=== PATIENT | male | born 1940 | race Caucasian/White ===

== ENCOUNTER 2017-04-30 15:18 | Emergency (ER) | payer BC ==
[~2017-04-30] VITALS: Ht 185.4 cm; Wt 88.0 kg
[~2017-04-30 15:18] MED LIST: FLM4 PO; OXYC1TAB3 PO; PROM25TA PO
[2017-04-30 15:24] VITALS: TEMP 36.4; Ht 185.4 cm; Wt 88.0 kg
[2017-04-30] MEDS ORDERED: BUPIVACAINE 0.5 % 5 MG/1 ML MPF 30ML VIAL INFIL ONE (15:45)
[2017-04-30] MEDS ORDERED: XYLOCAINE 1%/SOD BICARB 20 ML VIAL INFIL ONE (15:45)
[2017-04-30] MEDS ORDERED: FENTANYL CITRATE INJ 50 MCG/1 ML 2 ML VIAL IV STA (16:03)
--- NOTE | 2017-04-30 16:08 | DIAGNOSTIC IMAGING REPORT ---
RIGHT HAND 3 VIEWS HISTORY: crush injury/laceration right hand, digits 1 and 2 Right COMPARISON: None. FINDINGS: Comminuted fractures at the mid shaft of the proximal phalanx of the thumb and index finger. The proximal phalanx fracture at the thumb extends to the interphalangeal joint and demonstrates mild radial displacement. There is dorsal angulation at the proximal phalanx fracture of the index finger. Soft tissue swelling within the thumb and index finger. No radiopaque foreign bodies. IMPRESSION: Comminuted fractures involving the proximal phalanges of the thumb and index finger. Electronically signed by: Juma Grayson M.D. 04/30/2017 4:07 PM Dictated Date/Time: 04/30/2017 4:05 PM
--- NOTE | 2017-04-30 17:06 | EMERGENCY ROOM VISIT NOTE ---
ED Visit Note First contact with patient: 15:30 This Patient was discussed with the physician assistant commissioner, Kirsty Harrell PA-C. The pertinent historical and physical exam findings were confirmed. I agree with the studies ordered and with the interpretations of these studies. I agree with the disposition and care plan.
[2017-04-30] MEDS ORDERED: CEPHALEXIN MONOHYDRATE 250 MG CAP PO STA (17:57)
[2017-04-30] MEDS ORDERED: DIPHTHERIA/TETANUS/PERTUSSIS 0.5 ML SYR/VIAL IM. ONE (18:00)
[2017-04-30 18:08] VITALS: BP 145/81; PULSE 87; O2SAT 95
[2017-04-30] MEDS ORDERED: OXYC1TAB3 PO ×2 (18:13→18:37)
[2017-04-30] MEDS ORDERED: CEPH500C PO ×2 (18:13→18:37)
--- NOTE | 2017-04-30 18:15 | EMERGENCY ROOM VISIT NOTE ---
ED Visit Note First contact with patient: 15:30 CHIEF COMPLAINT: Finger laceration/pain HISTORY OF PRESENT ILLNESS: This 76-year-old male patient presents to the emergency department approximately one hour after cutting the right index finger and thumb when his ainxzpv-pj-ysj accidentally threw a log on top of his hand. The patient was wearing gloves, and states the gloves were not damaged. The patient reports significant difficulty moving his thumb and right index finger, in addition to the bleeding lacerations. The bleeding has not stopped. Denies weakness or numbness of the finger. The patient has full range of motion of the fingers, but range of motion is significantly decreased due to pain. The patient rates the pain as and throbbing and 5/10. The patient denies any other injuries. The patient is unsure if his tetanus shot is up to date. Upon arrival , the patient is dizzy, lightheaded, and states he does not feel well. REVIEW OF SYSTEMS: A 6 system review of systems was completed with positives and pertinent negatives listed in the HPI. ALLERGIES: None MEDICATIONS: Lisinopril, metformin PMH: Diabetes, hypertension SOCIAL HISTORY: The patient lives locally with family. He denies drug, alcohol , tobacco use. PHYSICAL EXAM: Vital Signs: Reviewed Nurse's notes, vital signs stable. GENERAL : This is a 76-year-old male, in no acute distress, well developed, well nourished. He does appear lethargic, and is pale in the face. SKIN: There is a 2 cm long laceration on the medial, dorsal aspect of the second finger, overlying the proximal phalanx. The edges gape apart with and without traction. There is no foreign material in the wound and it looks clean. There is mild active bleeding. A tendon is visible at the base of the wound, however no obvious bones or blood vessels noted. Extension and flexion of the finger is full and strong. There is a 2 cm long laceration on the anterior aspect of the first digit, overlying the proximal phalanx. The edges gape apart with and without traction. There is no foreign material in the wound and it looks clean. There is mild active bleeding. On deep inspection, there is bone noticeable and palpable. No significant tendons or blood vessels noted. Extension and flexion of the finger is full and strong.Full range of motion of the wrist and other fingers. Capillary refill less than 2 seconds. Normal sensation to light and sharp touch. RADIOLOGY: X-Ray Right Hand: FINDINGS: Comminuted fractures at the mid shaft of the proximal phalanx of the thumb and index finger. The proximal phalanx fracture at the thumb extends to the interphalangeal joint and demonstrates mild radial displacement. There is dorsal angulation at the proximal phalanx fracture of the index finger. Soft tissue swelling within the thumb and index finger. No radiopaque foreign bodies. IMPRESSION: Comminuted fractures involving the proximal phalanges of the thumb and index finger. EMERGENCY DEPARTMENT COURSE: I examined the patient. X-ray of the right hand was performed and did show comminuted fractures of the proximal phalanges of the thumb and index finger. The patient was given 50 g of fentanyl via IV. I did consult with Dr. Francois regarding the fracture and open wound overlying the fracture. He advised me to irrigate the wound with lots of sterile saline and apply a splint. He recommends loosely closing the wound with sutures, and starting the patient on Keflex. He states he will see the patient tomorrow morning at 10:30 AM in the office, and states he will discuss further management at that time. Verbal consent was obtained to perform the procedure. Using sterile technique the wound was cleansed with Betadine. 10 ml of 1% buffered lidocaine with 0.5% Bupivacaine was used to perform a digital block to anesthetize the patient's first and second digits. The area was sterilely draped. Once the patient was anesthetized, the wounds were copiously irrigated under pressure with sterile saline. The wounds were explored and structures visible as described previously. The laceration on the thumb was repaired using 6 simple interrupted 5-0 nylon sutures. The laceration on the 2nd digit was repaired using 6 simple interrupted 5-0 nylon sutures. The procedures were performed by myself and our PA student. The patient tolerated the procedure well. Hemostasis was achieved. 6 mL of 1% buffered lidocaine with 0.5% bupivacaine was used to perform a repeat digital block to anesthetize patient's first and second digits. The areas were cleaned with sterile saline and dressed with Adaptic and bandage. The patient was given a tetanus booster. The fingers were placed in finger splints. The patient was given his first dose of 500 mg Keflex. The patient did experience a rash throughout the course of his emergency department stay. I suspect this could be related to the fentanyl, and did warn the patient regarding receiving this medication in the future. Rash did improve prior to his departure. The patient denies any difficulty breathing. The patient was discharged home in good condition. I did consult with PDMP and did not find any suspicious findings. DIFFERENTIAL DIAGNOSIS: Phalanx fracture, laceration, contusion, soft tissue injury, sprain or strain or tear of the tendons, and others DIAGNOSIS: Open proximal phalanx fracture of the first and second digits. DISCHARGE INSTRUCTIONS & TREATMENT: ORTHOPEDIC INSTRUCTIONS: DO NOT drive, drink alcohol, operate machinery, or perform dangerous activities today. You were given medications in the ER that can affect your ability to safely function or operate a vehicle. Oxycodone (OxyIR) 5mg: Take 1-2 pills every four hours as needed for breakthrough pain. Avoid alcohol, operating machinery or dangerous equipment, working on ladders or roofs, DRIVING, or situations where being under the influence may be dangerous. It is recommended to use an kvog-jtt-ovanhlo stool softener such as Colace, 100mg twice daily while taking this medication to avoid constipation. Ibuprofen(Motrin, Advil) may be used for fever or pain. Use 600mg every six hours as needed. Take with food. Avoid using more than 2400mg in a 24 hour period. Do not use 2400mg per day for more than three consecutive days without physician direction. Prolonged inappropriate use can lead to stomach upset or ulcers. (AND/OR) Acetaminophen(Tylenol) may be used for fever or pain. Use 1000mg every six hours as needed. Avoid using more than 4000mg in a 24 hour period. Ice compresses for 20 minutes at a time four times daily for 2-3 days. Rest and elevate your injury. Do not get the splint wet. If your splint feels excessively tight, you have worsening pain, develop numbness or tingling, or your digits appear blue, loosen the becka wrap. Then reapply the becka wrap gently without removing the splint. If your symptoms are not quickly relieved return to the ER for re- evaluation. Return to the ER immediately for any numbness, tingling, severe pain, extreme swelling in the extremity or as needed. I spoke with Dr. Francois while you were in the emergency department. He states he were to follow up outpatient in the office at [facility] tomorrow at 10:30 AM. He will discuss further treatment and management at that time. We will also advised to on timeframe for removal of sutures. Follow-up with your primary care physician in 2 to 3 days for a recheck of your current condition. Current/Historical Medications Scheduled Cephalexin Monohydrate (Keflex), 500 MG PO QID Lisinopril & Hydrochlorothiazi (Zestoretic 20-12.5 mg), 1 TAB PO DAILY Metformin Hcl Er (Glucophage Er), 1,000 MG PO BID Multiple Vitamins W/ Minerals (Centrum Silver 50+Men), 1 TAB PO DAILY Scheduled PRN Oxycodone Ir (Roxicodone Ir), 1-2 TAB PO Q4H PRN for Pain Allergies Coded Allergies: No Known Allergies (Unverified Allergy, Unknown, UNKNOWN, 06/22/09) Vital Signs Date Time Temp Pulse Resp B/P (MAP) Pulse Ox O2 Delivery O2 Flow Rate FiO2 04/30/17 18:08 87 20 145/81 95 Room Air 04/30/17 16:55 84 04/30/17 16:36 98 18 141/76 98 Room Air 04/30/17 15:24 36.4 75 18 116/71 94 Room Air Medications Administered Medications (Trade) Dose Ordered Sig/Syeda Route Start Time Stop Time Status Last Admin Dose Admin Fentanyl Citrate (Fentanyl Inj) 50 mcg NOW STAT IV 04/30/17 16:03 04/30/17 16:05 DC 04/30/17 16:36 50 MCG Diphtheria/ Pertussis/Tetanus Vacc (Adacel Inj) 0.5 ml ONCE ONCE IM. 04/30/17 18:00 04/30/17 18:01 DC 04/30/17 18:09 0.5 ML Cephalexin Monohydrate (Keflex Cap) 500 mg NOW STAT PO 04/30/17 17:57 04/30/17 17:58 DC 04/30/17 18:09 500 MG Departure Information Impression Primary Impression: Open fracture proximal phalanx finger Dispostion Home / Self-Care Condition GOOD Prescriptions Oxycodone Ir (Roxicodone Ir) 5 Mg Tab 1-2 TAB PO Q4H Y for Pain, #24 TAB For Initial Treatment Prov: Kirsty Harrell, PAEhsanC 04/30/17 Cephalexin Monohydrate (Keflex) 500 Mg Cap 500 MG PO QID for 10 Days, #40 CAP Prov: Kirsty Harrell PA-C 04/30/17 Referrals Forrest Slater D.O. (PCP) Shailesh Francois MD Patient Instructions ED Fx Finger Open, [facility] Additional Instructions ORTHOPEDIC INSTRUCTIONS: DO NOT drive, drink alcohol, operate machinery, or perform dangerous activities today. You were given medications in the ER that can affect your ability to safely function or operate a vehicle. Oxycodone (OxyIR) 5mg: Take 1-2 pills every four hours as needed for breakthrough pain. Avoid alcohol, operating machinery or dangerous equipment, working on ladders or roofs, DRIVING, or situations where being under the influence may be dangerous. It is recommended to use an excv-bvm-fjnmqbx stool softener such as Colace, 100mg twice daily while taking this medication to avoid constipation. Ibuprofen(Motrin, Advil) may be used for fever or pain. Use 600mg every six hours as needed. Take with food. Avoid using more than 2400mg in a 24 hour period. Do not use 2400mg per day for more than three consecutive days without physician direction. Prolonged inappropriate use can lead to stomach upset or ulcers. (AND/OR) Acetaminophen(Tylenol) may be used for fever or pain. Use 1000mg every six hours as needed. Avoid using more than 4000mg in a 24 hour period. Ice compresses for 20 minutes at a time four times daily for 2-3 days. Rest and elevate your injury. Do not get the splint wet. If your splint feels excessively tight, you have worsening pain, develop numbness or tingling, or your digits appear blue, loosen the becka wrap. Then reapply the becka wrap gently without removing the splint. If your symptoms are not quickly relieved return to the ER for re- evaluation. Return to the ER immediately for any numbness, tingling, severe pain, extreme swelling in the extremity or as needed. I spoke with Dr. Francois while you were in the emergency department. He states he were to follow up outpatient in the office at [facility] tomorrow at 10:30 AM. He will discuss further treatment and management at that time. We will also advised to on timeframe for removal of sutures. Follow-up with your primary care physician in 2 to 3 days for a recheck of your current condition. Problem Qualifiers Primary Impression: Open fracture proximal phalanx finger Encounter type: initial encounter Finger: unspecified finger Fracture alignment: displaced Qualified Codes: S62.619B - Displaced fracture of proximal phalanx of unspecified finger, initial encounter for open fracture
[2017-04-30] MEDS ORDERED: MULT-1093 PO (18:21)
[2017-04-30] MEDS ORDERED: METF500T5 PO (18:21)
[2017-04-30] MEDS ORDERED: LISI-787 PO (18:21)
--- NOTE | 2017-04-30 18:40 | Pharmacy Progress Note ---
ED Pharmacist Counseling Note Date of Service: Apr 30, 2017. Received call from [facility] - out of stock of oxycodone 5 mg tabs. Gave verbal order to cancel both oxycodone and cephalexin prescriptions. Spoke with Kirsty MILLER) who canceled the original prescriptions and re- transmitted to a different pharmacy ([facility]). She informed the patient who is aware of the switch.
== END 2017-04-30 18:25 | disposition home or self-care (01) ==
LOC: C.EDB 15:20 → C.EDD 18:25
DX: S62.610B Displaced fracture of proximal phalanx of right index finger, initial encounter for open fracture (principal); S62.511B Displaced fracture of proximal phalanx of right thumb, initial encounter for open fracture; S61.210A Laceration without foreign body of right index finger without damage to nail, initial encounter; S61.011A Laceration without foreign body of right thumb without damage to nail, initial encounter; W22.8XXA Striking against or struck by other objects, initial encounter; Z23 Encounter for immunization; I10 Essential (primary) hypertension; E11.9 Type 2 diabetes mellitus without complications; Z79.84 Long term (current) use of oral hypoglycemic drugs; Z79.899 Other long term (current) drug therapy

== ENCOUNTER → 2017-05-01 | Outpatient (CLI) | payer BC ==
[~2017-05-01] MED LIST changes: +CEPH500C PO; -FLM4 PO; +LISI-787 PO; +METF500T5 PO; +MULT-1093 PO; -PROM25TA PO
== END | disposition home or self-care (01) ==
LOC: C.CPL 13:22
PROVIDERS: ATTEND Orthopaedic Surgery
DX: S69.91XA Unspecified injury of right wrist, hand and finger(s), initial encounter (principal); X58.XXXA Exposure to other specified factors, initial encounter

== ENCOUNTER → 2017-12-27 | Outpatient (CLI) | payer BC ==
[~2017-12-27] MED LIST changes: -CEPH500C PO; -OXYC1TAB3 PO
--- NOTE | 2017-12-27 08:19 | DIAGNOSTIC IMAGING REPORT ---
(CHEST) THORAX WITHOUT CT DOSE: 273.12 mGycm HISTORY: Melanoma MELONOMA TECHNIQUE: Multiaxial CT images of the chest were performed without contrast. A dose lowering technique was utilized adhering to the principles of ALARA. COMPARISON: None. FINDINGS: The lungs are clear. The mediastinal vascular structures are within normal limits. No mediastinal or hilar lymphadenopathy. No pleural effusion or pneumothorax. Limited views of the upper abdomen demonstrate a normal liver and spleen. IMPRESSION: No acute process. The above report was generated using voice recognition software. It may contain grammatical, syntax or spelling errors. Electronically signed by: Lukasz Barahona M.D. 12/27/2017 8:18 AM Dictated Date/Time: 12/27/2017 8:14 AM
== END | disposition home or self-care (01) ==
LOC: C.CTS 07:56
PROVIDERS: ATTEND Internal Medicine Hematology & Oncology
DX: C43.4 Malignant melanoma of scalp and neck (principal)

== ENCOUNTER 2019-09-17 05:54 | Inpatient (IN) ==
--- NOTE | 2019-09-04 12:09 | Anesthesiology Consultation ---
Date of Service September 04, 2019 Assessment & Plan (1) Encounter for pre-operative examination: Chart Review Chart Review: Acceptable Risk for Surgery and Patient NOT seen in Pre Admission Testing Consults Requested none History Surgery Operation Date: 09/17/19 07:30 Proposed Procedures p Navigational Bronchoscopy with ICG Markings, - Faisal Leon MD, FACS s Robotic Left Video Assisted Thoracoscopy with Left Upper Lobe Wedge Resection - Faisal Leon MD, FACS Height/Weight Height: 6 ft Weight: 79.379 kg Allergies Allergy/AdvReac Type Severity Reaction Status Date / Time No Known Allergies Allergy Verified 09/02/19 09:13 Medications Home Medications Medication Instructions Recorded Confirmed Last Taken lisinopril 20 1 tab PO QAM 08/19/19 09/02/19 08/21/19 07:00 mg-hydrochlorothiazide 12.5 mg tablet fgtyifkr-ipl-luhvp acid 300 1 tab PO QAM 08/19/19 09/02/19 08/21/19 07:00 mcg-lycopene 600 mcg-lutein 300 mcg tablet cranberry 500 mg PO QAM 08/21/19 09/02/19 08/21/19 07:00 elderberry fruit and flower 2 cap PO QAM 08/21/19 09/02/19 08/21/19 07:00 flaxseed oil [[place]born-3 Flaxseed Oil] 1,000 mg PO QAM 08/21/19 09/02/19 08/21/19 07:00 ibuprofen 400 mg PO Q6H PRN 08/21/19 09/02/19 08/21/19 07:00 atorvastatin 20 mg PO QAM 08/22/19 09/02/19 08/21/19 21:30 calcium polycarbophil [Fiber 1,250 mg PO QAM 09/02/19 09/02/19 Unknown (calcium polycarbophil)] lactobacillus combination no.4 3,000 mmu cells PO QAM 09/02/19 09/02/19 Unknown [Probiotic] turmeric 400 mg PO QAM 09/02/19 09/02/19 Unknown Past Medical History Medical History Diabetes mellitus, type 2 diet controlled History of ASCVD (arteriosclerotic cardiovascular disease) History of kidney stones History of melanoma Hyperlipidemia Hypertension Lung nodules Past Surgical History Surgical History History of cystoscopy w/ stone extraction History of hand surgery Rt - thumb, index finger - hardware present History of lithotripsy History of melanoma excision scalp 2017 History of right inguinal hernia repair History of tooth extraction Status post dissection of cervical lymph nodes Social History Smoking Status: Never smoker Do You Dip or Chew Tobacco: No Hx Alcohol Use: No Hx Substance Use: No substance use type: does not use Testing Laboratory Results Laboratory Tests 07/22/19 07/22/19 08:18 08:18 WBC 4.27 L Hgb 14.9 Plt Count 212 Sodium 141 Potassium 4.0 Chloride 107 Carbon Dioxide 30 BUN 16 Creatinine 0.98 Glucose 117 H Electrocardiogram Date: 08/19/19 Sinus rhythm with 1st degree A-V block, rate 61 bpm Non-specific intra-ventricular conduction block Minimal voltage criteria for LVH, may be normal variant ( [place] product ) Cannot rule out Septal infarct , age undetermined Abnormal ECG When compared with ECG of 01-MAY-2017 13:28, T wave inversion no longer evident in Inferior leads Confirmed by Kayden Narayanan ([id number]) on 08/19/2019 3:46:13 PM Chest X-Ray Date: 08/22/19 IMPRESSION: 1. 28 mm right perihilar soft tissue mass 2. No evidence of pneumothorax
[2019-09-17] MEDS ORDERED: LR 15ML/HR IV SCH (06:00)
--- NOTE | 2019-09-17 06:30 | History & Physical Bridge Note ---
Date of Service September 17, 2019 History & Physical Bridge Note I have examined the patient, reviewed the History & Physical and in the interval since the performance of the History & Physical I have noted the following changes of clinical significance: no changes noted
[2019-09-17] MEDS ORDERED: LARYING-O-JET KIT (LTA) ONE (06:48)
[2019-09-17] MEDS ORDERED: LIDOCAINE HCL 2% 2 ML VIAL/AMP(20MG/ML) INFIL ONE (06:48)
[2019-09-17] MEDS ORDERED: ONDANSETRON INJ 2 MG/ML 2 ML VIAL ONE (06:48)
[2019-09-17] MEDS ORDERED: ROCURONIUM BROMIDE 10 MG/ML 5 ML VIAL ONE (06:48)
[2019-09-17] MEDS ORDERED: fentaNYL citrate 100 MCG/2 ML VIAL ONE ×2 (06:49)
[2019-09-17] MEDS ORDERED: ATROPINE SULFATE 0.1 MG/ML 10ML SYR IV PRN (07:00)
[2019-09-17] MEDS ORDERED: ONDANSETRON INJ 2 MG/ML 2 ML VIAL IV PRN ×2 (07:00→12:19)
[2019-09-17] MEDS ORDERED: fentaNYL citrate 100 MCG/2 ML VIAL IV PRN (07:00)
[2019-09-17] MEDS ORDERED: ePHEDrine sulfate 50 MG/ML AMP IV PRN (07:00)
[2019-09-17] MEDS ORDERED: BUPIVACAINE 0.5 % 5 MG/1 ML MPF 30ML VIAL ONE (07:02)
[2019-09-17] MEDS ORDERED: SODIUM CHLORIDE 0.9% PF 50 ML VIAL ONE (07:03)
[2019-09-17] MEDS ORDERED: BUPIVACAINE LIPOSOME 1.3% 266 MG/20 ML VIAL ONE (07:03)
--- NOTE | 2019-09-17 08:23 | Fluoroscopy Report ---
FL chest 1V frontal CLINICAL HISTORY: NAVIGATIONAL BRONCH COMPARISON STUDY: Chest CT August 05, 2019. Chest radiograph August 22, 2019. FLUOROSCOPY TIME: 52 seconds. FLUOROSCOPIC IMAGES: 1 FINDINGS: Fluoroscopy was provided for navigational bronchoscopy for sampling of the left upper lobe lesion shown on prior CT. IMPRESSION: Fluoroscopy provided for navigational bronchoscopy. ACT 112: Negative or not required by law. Electronically signed by: Jackson Hurtado M.D. 09/17/2019 8:21 AM
[2019-09-17] MEDS ORDERED: NEOSTIGMINE METHYLSULFATE 5 MG/5 ML SYR ONE (09:53)
[2019-09-17] MEDS ORDERED: GLYCOPYRROLATE 0.2 MG/ML VIAL ONE ×2 (09:53→09:55)
[2019-09-17] MEDS ORDERED: PHENYLEPHRINE HCL 10 MG/ML VIAL ONE (09:54)
[2019-09-17] MEDS ORDERED: ePHEDrine sulfate 50 MG/ML SYR ONE (09:54)
[2019-09-17] MEDS ORDERED: PHENYLEPHRINE 100MCG/ML 5ML SYR ONE (09:54)
[2019-09-17] MEDS ORDERED: VASOPRESSIN 20 UNIT/ML VIAL ONE (09:54)
--- NOTE | 2019-09-17 10:04 | Operative Report ---
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 I identified the patient and participated in the time-out.: Yes Procedure Operation Date: 09/17/19 07:30 Actual Procedures p Navigational Bronchoscopy with ICG Markings, - Faisal Leon MD, FACS s Robotic Left Video Assisted Thoracoscopy with Left parietal pleural biopsy, upper Lobe Wedge Resection and mediastinal lymph node biopsies- Faisal Leon MD, FACS Surgeon Faisal Leon MD, FACS Belt Repairer Juan GOMEZ Estimated Blood Loss 10 Findings Consistent with Post-Op Diagnosis Specimens Pleural biopsy, left level 9 lymph node and level 5 lymph node, wedge resection left upper lobe x2 Drains 24 Uzbek chest tube Anesthesia Type General Complications none Disposition Accompanied Patient To Recovery: Yes Disposition: Recovery Room Indications Patient with a history of melanoma with pulmonary nodules Description of Procedure 78-year-old male has a history of melanoma and was found to have pulmonary nodules which are asymptomatic 1 which was larger in the more central right lower lobe abutting the more peripheral left upper lobe. I performed a navigational bronchoscopy and biopsy both of these but we did not get a diagnosis. For this reason I felt that a wedge resection of the left upper lobe medial mass would be amenable to biopsy however in order to remove the right l ower lobe mass we have to do a lobectomy. Patient is in excellent shape for 78-year-old male. We discussed this at our multidisciplinary cancer conference and determined that if the patient did indeed have metastatic melanoma in his left upper lobe we would treat him with targeted therapy and perhaps SBRT to the right lower lobe. We will discuss this further when the final pathology is back. On 09/17/2019 the patient underwent an uncomplicated navigational bronchoscopy with marking of the left medial upper lobe mass with ICG dye injection. Patient was then turned and underwent a robotic wedge resection of this mass. The ICG dye did not porsche the mass as well as we would have liked however we were able to wedge this out and the frozen section showed it to be a metastatic melanoma although we will have to wait for final stains before being 100% sure of that. There was also a hyperpigmented mass which was odd in appearance on the parietal pleura which I biopsied. This appeared to be metastatic melanoma also. I biopsied a large level 5 lymph node frozen section showed no evidence of cancer. I biopsied a smaller left level 9 lymph node. The patient had no air leak and was extubated in the room with negligible blood loss. Procedure: Patient brought to operating room laid supine Zych. General anesthesia was induced endotracheal intubation was performed with a single-lumen tube. Patient's airways were then registered on the [place] navigational bronchoscopy system. We were able to navigate out to the mass in the medial left upper lobe and using ICG dye injected this with a needle into the area. We then remove the bronchoscope without difficulty and he had no evidence of bleeding and I saw no endobronchial abnormalities. Patient was then turned to the right lateral decub position after a double-lumen tube in place. 4 robotic ports were placed. 2 8 mm ports were placed posteriorly and anteriorly and a 12 mm port was placed in the midaxillary line at about the seventh interspace. Then placed a 12 mm assistance port further down anteriorly above the diaphragm. One lung ventilation ensued and carbon oxide was insufflated. We then used the firefly camera and we saw the diet but it did not appear to be the area of the mass. Some of it was in this area. I then used a Endo DUY staplers and wedged out the medial upper lobe mass and we could easily palpate this nodule. I also biopsied a level 5 node which was large. Frozen section of this node showed no evidence of carcinoma however the nodule did appear to be metastatic melanoma we had good margins grossly. I also saw an interesting pigmented mass on the pleura which was biopsied. Frozen section of this was felt to be possibly due to melanoma also. We will have to wait for final stains. I also biopsied a level 9 lymph node without difficulty. A 24 Uzbek chest tube was then placed through the anterior port and directed towards the apex. The camera port and the assistance port was closed with 0 Vicryl for the deeper tissues and muscle and then 4 Monocryl was used in running subcuticular fashion approximate the wound edge. The chest tube was held in place with heavy silk suture. He was awakened without difficulty and extubated in the room. He tolerated it well. I attest to the content of the Intraoperative Record and any orders documented therein. Any exceptions are noted below.
[2019-09-17] MEDS ORDERED: METOCLOPRAMIDE HCL INJ 5 MG/ML 2 ML VIAL IV ONE (10:12)
--- NOTE | 2019-09-17 10:32 | XRay Report ---
XR chest 1V portable CLINICAL HISTORY: left lung wedge COMPARISON STUDY: Chest CT August 05, 2019. Chest radiograph August 22, 2019. FINDINGS: Left apical chest tube is in place. There are postoperative findings within the left upper lobe with airspace opacity projecting lateral to the aortic knob. This is postsurgical. A trace left apical pneumothorax is noted. There is gas within the left chest wall and neck as expected. Left lowe r lobe airspace opacity is noted with evidence for volume loss. There is no evidence for pulmonary ed tatianna. IMPRESSION: 1. Left apical chest tube in place. Trace left apical pneumothorax. 2. Left lower lobe airspace opacity with volume loss. Left upper lobe opacity which is post surgical. ACT 112: Negative or not required by law. Electronically signed by: Jackson Hurtado M.D. 09/17/2019 10:31 AM
--- NOTE | 2019-09-17 11:10 | Anesthesiology Progress Note ---
Date of Service September 17, 2019 Anesthesia Post Procedure Vital Signs Vital Signs: Temp Pulse Pulse Pulse Resp BP BP 09/17/19 11:00 79 20 143/74 H 09/17/19 10:55 82 20 139/73 09/17/19 10:50 81 20 154/84 H 09/17/19 10:45 85 20 148/77 H 09/17/19 10:42 85 20 149/73 H 09/17/19 10:41 87 33 H 09/17/19 10:40 87 20 09/17/19 10:35 86 20 157/78 H 09/17/19 10:32 84 20 147/72 H 09/17/19 10:30 84 20 09/17/19 10:25 81 20 139/61 09/17/19 10:20 81 10 L 130/63 09/17/19 10:16 95.7 F L 79 74 20 132/56 L 137/56 L 09/17/19 06:27 97.7 F 71 20 159/92 H Pulse Ox 09/17/19 11:00 99 09/17/19 10:55 100 09/17/19 10:50 100 09/17/19 10:45 100 09/17/19 10:42 100 09/17/19 10:41 99 09/17/19 10:40 100 09/17/19 10:35 99 09/17/19 10:32 97 09/17/19 10:30 94 09/17/19 10:25 92 09/17/19 10:20 75 L 09/17/19 10:16 99 09/17/19 06:27 96 Pain Intensity Left Chest: Pain Intensity: 0 Transfer of Care Handoff Completed per policy Notes Mental Status: alert / awake / arousable and participated in evaluation Patient Amnestic to Procedure: Yes Nausea / Vomiting: adequately controlled Pain: adequately controlled Airway Patency, RR, SpO2: stable & adequate BP & HR: stable & adequate Hydration State: stable & adequate Anesthetic Complications: no major complications apparent and Pt Satisfied with anesthetic care
[2019-09-17] MEDS ORDERED: D5W AND 1/2NSS 1,000 ML IV SCH (12:19)
[2019-09-17] MEDS ORDERED: MoRPHine SULFATE 2 MG/ML CARP IV PRN (12:19)
[2019-09-17] MEDS ORDERED: OXYCODONE HCL IR 5 MG TAB (IMMEDIATE RELEASE) PO PRN (12:19)
[2019-09-17] MEDS: ACETAMINOPHEN 1,000 MG/100 ML VIAL IV SCH ×2 (15:44→22:03)
[2019-09-17] MEDS ORDERED: TAMSULOSIN HCL 0.4 MG CAP PO ONE (17:36)
[2019-09-17] MEDS: METOCLOPRAMIDE HCL INJ 5 MG/ML 2 ML VIAL IV SCH (19:58)
[2019-09-17] MEDS: DOCUSATE SODIUM 100 MG CAP PO SCH (19:58)
[2019-09-18] MEDS: METOCLOPRAMIDE HCL INJ 5 MG/ML 2 ML VIAL IV SCH (03:00)
[2019-09-18] MEDS: ACETAMINOPHEN 1,000 MG/100 ML VIAL IV SCH (06:13)
--- NOTE | 2019-09-18 08:18 | XRay Report ---
XR chest 1V portable CLINICAL HISTORY: left lung wedge postoperative COMPARISON STUDY: 09/17/2019 FINDINGS: Left-sided chest tube is again noted. No significant postprocedural pneumothorax. Subcutaneous emphysematous change is slightly increased. Right lung is clear. IMPRESSION: Stable postoperative changes left hemithorax. Slight increase in subcutaneous emphysemat ous change. No postprocedural pneumothorax. ACT 112: Negative or not required by law. The above report was generated using voice recognition software. It may contain grammatical, syntax or spelling errors. Electronically signed by: Lukasz Barahona M.D. 09/18/2019 8:16 AM
--- NOTE | 2019-09-18 08:44 | Progress Note ---
DATE: 09/17/2019 Mr. 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 The patient developed urinary retention last night and we inserted a Fox catheter. It is draining clear fluid this morning. I started him on Flomax and we are going to remove that catheter this morning. Otherwise, he has no real complaints. He has a tiny air leaks. We will have to keep his chest tube for at least another day. Stop his IV fluid yesterday. We will remove his Fox catheter today. His chest x-ray looks quite good. He sounds good on exam. We will keep him at least another day and see how things look. We will remove his Fox catheter in hopes that he can urinate on his own.
[2019-09-18] MEDS ORDERED: ELDERBERRY FRUIT AND FLOWER PO SCH (09:00)
[2019-09-18] MEDS: DOCUSATE SODIUM 100 MG CAP PO SCH ×2 (09:12→21:37)
[2019-09-18] MEDS: CALCIUM POLYCARBOPHIL 625MG TAB PO SCH (09:12)
[2019-09-18] MEDS: ACETAMINOPHEN 325 MG TAB PO SCH ×4 (09:12→23:26)
[2019-09-18] MEDS: TAMSULOSIN HCL 0.4 MG CAP PO SCH (09:13)
[2019-09-18] MEDS: LACTOBACILLUS ACIDOPHILUS (FLORANEX) TAB PO SCH (09:13)
[2019-09-18] MEDS: ATORVASTATIN 20 MG TAB PO SCH (09:13)
[2019-09-18] MEDS: lisinopriL 20 MG TAB PO SCH (09:14)
[2019-09-18] MEDS: MULTIVITAMIN TAB PO SCH (09:14)
[2019-09-18] MEDS: ENOXAPARIN INJ 40 MG/0.4 ML SYR SQ SCH (10:37)
[2019-09-18 14:13] LABS: Albumin Level 3.4 gm/dl (3.4-5.0); BUN Creatinine Ratio 15.5 (10-20); Creatinine Clr Calc Pharmacy 52.3 ml/min; Est GFR (African American) 63.1; Est GFR (Non-African American) 54.4; Potassium 3.6 mmol/L (3.5-5.1)
[2019-09-18 14:18] LABS: Phosphorus 2.7 mg/dl (2.5-4.9); Prostate Specific Antigen 45.6 ng/ml (0-4)
[2019-09-19] MEDS ORDERED: LIDOCAINE 2% JELLY 5 ML TUBE EXT ONE (01:30)
[2019-09-19] MEDS ORDERED: LIDOCAINE 2% JELLY 5 ML TUBE ONE (01:47)
[2019-09-19] MEDS: ACETAMINOPHEN 325 MG TAB PO SCH ×4 (05:37→23:16)
--- NOTE | 2019-09-19 07:48 | XRay Report ---
XR chest 1V portable CLINICAL HISTORY: 78 years-old Male presenting with s/p metastasectomy. TECHNIQUE: Portable upright AP view of the chest was obtained. COMPARISON: 09/18/2019. FINDINGS: Atherosclerosis of the aortic arch. Cardiac silhouette mildly enlarged. Large bore left pleural drain remains position at the left upper lung. Suture margin projects over the left apex. No other focal o pacity. No large effusion or pneumothorax. Prominent subcutaneous emphysema along the left lateral ch est wall tracking into the left base of the neck. Trace if any pneumomediastinum may be present. Oste openia may be present. Upper abdomen normal. IMPRESSION: 1. No pneumothorax. Left pleural drain in place. 2. Postsurgical changes of the left upper lung. 3. Mild cardiomegaly. ACT 112: Negative or not required by law. Electronically signed by: Dragan Malone M.D. 09/19/2019 7:47 AM
[2019-09-19] MEDS: TAMSULOSIN HCL 0.4 MG CAP PO SCH (08:17)
[2019-09-19] MEDS: CALCIUM POLYCARBOPHIL 625MG TAB PO SCH (08:17)
[2019-09-19] MEDS: lisinopriL 20 MG TAB PO SCH (08:18)
[2019-09-19] MEDS: LACTOBACILLUS ACIDOPHILUS (FLORANEX) TAB PO SCH (08:18)
[2019-09-19] MEDS: ATORVASTATIN 20 MG TAB PO SCH (08:18)
[2019-09-19] MEDS: ENOXAPARIN INJ 40 MG/0.4 ML SYR SQ SCH (08:19)
[2019-09-19] MEDS: MULTIVITAMIN TAB PO SCH (08:19)
[2019-09-19] MEDS: DOCUSATE SODIUM 100 MG CAP PO SCH ×2 (08:20→20:12)
--- NOTE | 2019-09-19 10:15 | Urology Consultation ---
Date of Consultation September 19, 2019 Assessment & Plan (1) Elevated PSA: (2) Urinary retention: 78 yo M with urinary retention and grossly elevated PSA s/p left upper lobe lung wedge resection . Initially consulted for urinary retention. Dr. Leon called our service with update that pathology from lung tissue sample appears to be prostatic origin, pending in chart. Case reviewed with Dr. Mondragon, who discussed results with patient and at bedside. Plan is to order further workup for staging. - Complete metabolic panel - NM Bone scan whole body - CT abd pelvis IV con Urinary retention: Continue with catheter at present. Continue Tamsulosin. Thank you for allowing me to participate in the care of your patient. Will continue to monitor closely. History of Present Illness Attending Physician: Faisal Leon MD, FACS History of Present Illness 78 yo M with PMHx of melanoma, hypertension, and nephrolithiasis admitted for navigational bronchoscopy with marking of his left upper lobe lesion and a wedge resection with Dr. Leon. New consult. Pt is POD#2 navigational bronchoscopy and left upper lobe wedge resection. Pt developed urinary retention overnight. States he was voiding without difficulty after operative catheter was initially removed. He states that last evening before bed he had difficulty voiding. Nursing performed bl adder scan showing 750 mL. Fox catheter was placed and he was started on Tamsulosin. He reports history of post op retention. Otherwise denies bothersome lower urinary tract symptoms at baseline. No dysuria or hematuria. He reports he "has an enlarged prostate". He does not take any BPH medications at home. PSA 45.6 while inpatient. He is unsure of last PSA screening. Reports annual ADELAIDA with his PCP. Currently tolerating Fox catheter without bother. He reports following with a urologist in the remote past due to nephrolithiasis. Reports last stone greater than 10 years ago. Reports history of melanoma for which he continues to follow with an oncologist, Dr. Mckeon. Allergies Allergy/AdvReac Type Severity Reaction Status Date / Time No Known Allergies Allergy Verified 09/17/19 06:21 Home Medications Home Medications Medication Instructions Recorded Confirmed Type lisinopril 20 1 tab PO QAM 08/19/19 09/17/19 History mg-hydrochlorothiazide 12.5 mg tablet nhqeszhc-doa-prsva acid 300 1 tab PO QAM 08/19/19 09/17/19 History mcg-lycopene 600 mcg-lutein 300 mcg tablet cranberry 500 mg PO QAM 08/21/19 09/17/19 History elderberry fruit and flower 2 cap PO QAM 08/21/19 09/17/19 History flaxseed oil [[place]-3 Flaxseed Oil] 1,000 mg PO QAM 08/21/19 09/17/19 History ibuprofen 400 mg PO Q6H PRN 08/21/19 09/17/19 History atorvastatin 20 mg PO QAM 08/22/19 09/17/19 History calcium polycarbophil [Fiber 1,250 mg PO QAM 09/02/19 09/17/19 History (calcium polycarbophil)] lactobacillus combination no.4 3,000 mmu cells PO QAM 09/02/19 09/17/19 History [Probiotic] turmeric 400 mg PO QAM 09/02/19 09/17/19 History Patient History Medical History Diabetes mellitus, type 2 diet controlled History of ASCVD (arteriosclerotic cardiovascular disease) History of kidney stones History of melanoma Hyperlipidemia Hypertension Lung nodules Surgical History History of cystoscopy w/ stone extraction History of hand surgery Rt - thumb, index finger - hardware present History of lithotripsy History of melanoma excision scalp 2017 History of right inguinal hernia repair History of tooth extraction Status post dissection of cervical lymph nodes Status post lung surgery (09/17/19) p Navigational Bronchoscopy with ICG Markings, - Faisal Leon MD, FACS s Robotic Left Video Assisted Thoracoscopy with Left parietal pleural biopsy, upper Lobe Wedge Resection and mediastinal lymph node biopses Dr. Leon 09-17-19 Social History Preferred Language: [place] Communication Ability: Effective Seater Grinder Required: No Beliefs That Will Affect Care: None marital status: Current Living Situation: Spouse current occupational status: retired Other Information That Helps Us Care for You: No Feels Safe at Home: Yes Safety Concerns: Feels Safe At This Time Smoking Status: Never smoker Do You Dip or Chew Tobacco: No ; Second Hand Expo sure: No ; Tobacco Cessation Education Requested by Patient: No Hx Alcohol Use: No Hx Substance Use: No Review of Systems Review of Systems: All systems reviewed & are unremarkable except as noted in HPI & below Physical Exam Constitutional: well developed and well nourished; no acute distress Respiratory: normal respiratory effort; no respiratory distress chest tube intact Cardiovascular: Extremities: no pedal edema Gastrointestinal (Abdomen): Inspection/Auscultation: abdomen normal to inspection; abdomen not distended Percussion/Palpation: abdomen soft; abdomen nontender Neurologic: moves all extremities and awake Psychiatric: A+Ox3, euthymic affect Orientation: cooperative Genitourinary: Fox catheter intact, draining clear yellow urine Declined ADELAIDA Results & Data Vital Signs (Past 12 Hours) Vital Signs Temp Pulse Pulse Resp BP Pulse Ox 09/19/19 08:08 36.6 C 81 14 147/79 H 95 09/19/19 02:45 37.0 C 79 15 151/73 H 93 09/18/19 23:30 37.2 C 84 15 161/75 H 95 PG Care Time/CCT Total # of Minutes Spent Total Time Spent with Patient: Total time spent is greater than 50% in coordination of care (as documented) at patient's floor/unit and/or counseling patient:
[2019-09-19 11:23] LABS: Albumin Level 3.4 gm/dl (3.4-5.0); BUN Creatinine Ratio 17.7 (10-20); Calcium 8.8 mg/dl (8.5-10.1); Creatinine Clr Calc Pharmacy 70.3 ml/min; Est GFR (African American) 90.2; Est GFR (Non-African American) 77.8; Potassium 3.8 mmol/L (3.5-5.1)
[2019-09-19 11:27] LABS: Albumin Globulin Ratio 0.9 (0.9-2); Bilirubin,Total 0.8 mg/dl (0.2-1); Globulin 3.7 gm/dl (2.5-4.0); Total Protein 7.1 gm/dl (6.4-8.2)
[2019-09-19] MEDS ORDERED: IOVERSOL 100ml IV PRN (12:07)
--- NOTE | 2019-09-19 12:28 | CT Scan Report ---
CT abd pelvis IV con only CLINICAL HISTORY: 78 years-old Male presenting with metastatic disease, concern for pulmonary metasta ses. TECHNIQUE: Multidetector CT of the abdomen and pelvis was performed after the administration of intra venous contrast. IV contrast: 94 mL of Optiray 320. One or more dose lowering techniques were used co nsistent with the principles of ALARA (as low as reasonably achievable), including automatic exposure control, mA or kV adjustment to individual patient size, and/or use of iterative reconstruction. COMPARISON: 10/29/2013. CT DOSE (mGy.cm): The estimated cumulative dose is 512.52 mGycm. FINDINGS: Infant Childcare Provider topogram: Fox catheter in place. Lung bases: Pleural drain noted in the anterior left chest wall with associated extensive soft tissue emphysema. Coronary artery and aortic valve calcification. Normal heart size. No pericardial or pleu ral effusion. Small left pneumothorax. Trace pneumomediastinum. No focal infiltrate or nodule at the lung bases. Liver: Normal morphology. Hypoenhancing focus in the right hepatic lobe as on prior exam either heman gioma, shunting, or venous varix. Patent hepatic vasculature. Biliary: No intrahepatic or extrahepatic biliary ductal dilatation. Normal gallbladder. Pancreas: Normal. Spleen: Normal. Adrenal glands: Normal. Kidneys and ureters: Few cysts noted bilaterally. Focal scarring in the interpolar region of the left kidney. No nephrolithiasis or hydronephrosis. No solid renal mass. Ureters nondistended. Bladder: Circumferential bladder wall thickening. Bladder partially decompressed with a Fox cathete r. Gas relates to the presence of the catheter. Pelvic organs: Marked enlargement of the prostate. Significant heterogeneity of the prostate. Bowel: Normal appendix. No bowel obstruction. Evaluation is degraded by lack of oral contrast. Soft t issue in the pelvis is presumably decompressed small bowel. No evidence of suspicious bowel wall thic kening or focal mass. Peritoneal cavity: No free fluid or intraperitoneal gas. Lymph nodes: No enlarged lymph nodes in the abdomen or pelvis. Vasculature: Atherosclerosis of the normal caliber abdominal aorta. IVC patent. Abdominal wall: Soft tissue emphysema minimally tracks into the left anterior abdominal wall. Mild mushtaq dy wall edema. Musculoskeletal: Degenerative changes of the spine. No destructive osseous lesion. IMPRESSION: 1. Significantly enlarged and heterogeneous prostate. While this may relate to benign prostatic hype rplasia, please ensure the absence of underlying prostatic carcinoma. 2. Chronic bladder outlet obstruction. 3. No other convincing evidence of an intra-abdominal malignancy or metastatic disease. 4. Left pneumothorax and soft tissue emphysema associated with the left pleural drain likely in the postsurgical setting. ACT 112: Negative or not required by law. Electronically signed by: Dragan Malone M.D. 09/19/2019 12:27 PM
--- NOTE | 2019-09-19 15:36 | Nuclear Medicine Report ---
NM bone scan whole body CLINICAL HISTORY: Prostate cancer. Melanoma. Evaluate for skeletal metastatic disease. COMPARISON STUDY: Chest CT August 05, 2019. CT of the abdomen and pelvis September 19, 2019. TECHNIQUE: 26 mCi of technetium 99m MDP was injected IV at 12:20 PM on September 19, 2019. 3 hours foll owing injection, whole body imaging was performed in the anterior and posterior projections. FINDINGS: Expected soft tissue and renal uptake is present. No suspicious radiotracer uptake is ident ified. Uptake within the lumbar spine is degenerative. Mild scoliosis within the thoracolumbar spine is noted. Uptake within the left medial tibial plateau is degenerative or traumatic. Mild uptake with in the shoulders is degenerative. IMPRESSION: No evidence of skeletal metastases. ACT 112: Negative or not required by law. Electronically signed by: Jackson Hurtado M.D. 09/19/2019 3:35 PM
[2019-09-19] MEDS: BICALUTAMIDE 50 MG TAB PO SCH (16:36)
[2019-09-20] MEDS: ACETAMINOPHEN 325 MG TAB PO SCH ×4 (04:59→23:22)
[2019-09-20 06:44] LABS: Creatinine Clr Calc Pharmacy 79.7 ml/min; Est GFR (African American) 97.5; Est GFR (Non-African American) 84.1
--- NOTE | 2019-09-20 07:17 | XRay Report ---
XR chest 1V portable HISTORY: Postop. left lung wedge COMPARISON: Chest 09/19/2019. FINDINGS: Tiny left pneumothorax with a pleural gap of 2 mm. Left chest tube terminates in the left l johnna apex. Suture material and slight increased density within the left upper lobe consistent with pos toperative change. The right lung is clear. The heart is normal in size. Left chest wall subcutaneous emphysema. IMPRESSION: Tiny left apical pneumothorax. The left-sided chest tube is unchanged in position. ACT 112: Negative or not required by law. Electronically signed by: Juma Grayson M.D. 09/20/2019 7:16 AM
[2019-09-20] MEDS: LACTOBACILLUS ACIDOPHILUS (FLORANEX) TAB PO SCH (09:36)
[2019-09-20] MEDS: DOCUSATE SODIUM 100 MG CAP PO SCH ×2 (09:36→20:37)
[2019-09-20] MEDS: ATORVASTATIN 20 MG TAB PO SCH (09:36)
[2019-09-20] MEDS: MULTIVITAMIN TAB PO SCH (09:36)
[2019-09-20] MEDS: BICALUTAMIDE 50 MG TAB PO SCH (09:36)
[2019-09-20] MEDS: TAMSULOSIN HCL 0.4 MG CAP PO SCH (09:37)
[2019-09-20] MEDS: ENOXAPARIN INJ 40 MG/0.4 ML SYR SQ SCH (09:37)
[2019-09-20] MEDS: CALCIUM POLYCARBOPHIL 625MG TAB PO SCH (09:37)
[2019-09-20] MEDS: lisinopriL 20 MG TAB PO SCH (09:38)
--- NOTE | 2019-09-20 11:14 | Progress Note ---
DATE: 09/20/2019 The patient was seen today. He has been ambulating in the hallway twice today already. He looks good. He still has a tiny intermittent air leak and I am going to have to keep his chest tube in for 1 more day, but I think we will probably be able to get it out tomorrow and get him home. He is eating well. He is moving his bowels. He has a Fox catheter in place which is draining clear urine. The patient underwent evaluation with Dr. Austin Mondragon from Urology yesterday. A CT scan was obtained, which showed no evidence of lymphadenopathy in the abdomen or pelvis. He does have a large prostate. He also had a bone scan which showed no evidence of metastatic disease. His PSA is over 45. The patient's pathology report is interesting. This does not appear to be melanoma. However, we are not seeing markers for prostate in the mass either. We are still waiting for further studies. Otherwise, he looks very good. I feel we will probably be able to get his chest tube out tomorrow and get him home.
--- NOTE | 2019-09-20 11:26 | Progress Note ---
DATE: 09/19/2019 Mr. Machuca is now 2 days status post a robot-assisted thoracoscopic resection of a left upper lobe nodule. We were surprised today when Dr. Altman called and said this is not a metastatic melanoma. His PSA was obtained this morning and it is over 45. Of course, this certainly points towards prostate carcinoma. Dr. Austin Mondragon saw the patient at the bedside. We actually saw him together. Dr. Mondragon was going to order a bone scan and a CT scan of the abdomen and pelvis to assess for metastatic disease. Otherwise, he looks good except he still has a small air leak. He could be in the hospital at least another 1-2 days. His Fox is draining clear urine.
--- NOTE | 2019-09-20 13:08 | Urology Progress Note ---
Date of Service September 20, 2019 Assessment & Plan (1) Urinary retention: 78 yo M with urinary retention and grossly elevated PSA s/p left upper lobe lung wedge resection . Catheter is in place and draining well. We will plan to continue. (2) Prostate cancer: Patient underwent staging imaging. No signs of bone metastasis and no concerning areas found on CT scan. Patient appears to have metastatic disease only to the lung at this point. Preliminary report is that this is prostatic in origin. Patient has been started on antiandrogen therapy. Will need to be set up in office to undergo Lupron injection. Patient does have a history of me lanoma. Is followed by oncology for this. Will likely be candidate for multiple different therapy options. Will need to discuss these further with patient. Otherwise we will attempt to manage his urinary issues. Patient likely will need further management and treatment of obstructive issues. We will also need to monitor moving forward. We will plan to continue following for his hospital stay however at this point likely will be going home soon. Further urologic management can be done as outpatient. Subjective Patient status post wedge resection for lung lung mass with postop urinary retention. Patient has been found to have metastatic prostate cancer to the lung. Had CT and bone scan yesterday. No signs of other active concerning disease. Patient's PSA is 45. Patient has considerable lower urinary tract symptoms postoperatively and was unable to void. Catheter is in place. Plan will be to continue with catheter. No new pain or discomfort. Patient has been ambulating. No other major issues or concerns. Review of Systems Review of Systems: All systems reviewed & are unremarkable except as noted in HPI & below Physical Exam Constitutional: well developed and well nourished; no acute distress Respiratory: normal respiratory effort; no respiratory distress Cardiovascular: Extremities: no pedal edema Gastrointestinal (Abdomen): Inspection/Auscultation: abdomen normal to inspection; abdomen not distended Percussion/Palpation: abdomen soft; abdomen nontender Neurologic: moves all extremities and awake Psychiatric: A+Ox3, euthymic affect Orientation: cooperative Results & Data Vital Signs (Past 12 Hours) Vital Signs Temp Pulse Resp BP Pulse Ox 09/20/19 08:00 37.1 C 76 18 149/71 H 95 PG Care Time/CCT Total # of Minutes Spent Total Time Spent with Patient: Total time spent is greater than 50% in coordination of care (as documented) at patient's floor/unit and/or counseling patient:
[2019-09-20 15:21] VITALS: TEMP 98.4
[2019-09-21] MEDS: ACETAMINOPHEN 325 MG TAB PO SCH ×2 (06:00→11:32)
[2019-09-21 07:47] VITALS: BP 137/76; PULSE 74; O2SAT 95
[2019-09-21] MEDS: ATORVASTATIN 20 MG TAB PO SCH (08:01)
[2019-09-21] MEDS: MULTIVITAMIN TAB PO SCH (08:01)
[2019-09-21] MEDS: DOCUSATE SODIUM 100 MG CAP PO SCH (08:01)
[2019-09-21] MEDS: LACTOBACILLUS ACIDOPHILUS (FLORANEX) TAB PO SCH (08:01)
[2019-09-21] MEDS: lisinopriL 20 MG TAB PO SCH (08:02)
[2019-09-21] MEDS: CALCIUM POLYCARBOPHIL 625MG TAB PO SCH (08:02)
[2019-09-21] MEDS: TAMSULOSIN HCL 0.4 MG CAP PO SCH (08:02)
[2019-09-21] MEDS: ENOXAPARIN INJ 40 MG/0.4 ML SYR SQ SCH (08:03)
[2019-09-21] MEDS: BICALUTAMIDE 50 MG TAB PO SCH (08:04)
--- NOTE | 2019-09-21 10:07 | XRay Report ---
XR chest 1V portable CLINICAL HISTORY: Chest x-ray status post chest tube removal COMPARISON STUDY: 09/20/2019 FINDINGS: There is been interval removal of the left-sided chest tube. There is a trace residual left apical pneumothorax. There is no acute parenchymal consolidation. There is a left sided subcutaneous emphysema. There is a 24 mm right perihilar soft tissue nodule unchanged from the preceding study[ IMPRESSION: 1. Interval removal of the left-sided chest tube 2. Stable trace left apical pneumothorax 3. Persistent 24 mm right perihilar mass. ACT 112: Negative or not required by law. Electronically signed by: Cresencio Adame M.D. 09/21/2019 10:05 AM
--- NOTE | 2019-09-22 01:56 | Discharge Summary ---
DISCHARGE DIAGNOSES: 1. 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 2. Urinary retention. HOSPITAL COURSE: This is a very nice soon to be 79-year-old male who is remarkably physically active, who presented with 2 lung nodules. One was in the right lower lobe which was large and central and the other was more peripheral in the medial left upper lobe. The patient has a history of melanoma. These nodules are asymptomatic. I performed an electromagnetic navigational bronchoscopy and endobronchial ultrasound and saw no evidence of malignancy. After discussion at our multidisciplinary cancer conference, we elected to proceed with a wedge resection of the left upper lobe nodule. On 09/17/2019, the patient was brought to the operating room and underwent uncomplicated navigational bronchoscopy and we marked the medial left upper lobe with ICG dye. We then turned the patient and using the robotic scope with the Firefly fluorescence, we were able to see this area and wedged it out. This appeared to be metastatic melanoma. We had clean resection margins. I also biopsied some lymph nodes. The patient did well with this, although he developed urinary retention the night after surgery. He also had a small air leak. We watched him for a couple of days and it turned out that his PSA was very high at over 45. It also was apparent from our immunohistochemical stains that this was not a melanoma. We are assuming this as a metastatic prostate and he was seen by Dr. Austin Mondragon. His Fox catheter was left in place. Dr. Mondragon will see him later this week. We are going to continue the Flomax and Casodex. We will see how he looks later this week. It still is not quite clear what this pulmonary nodule is histologically. I discussed this with Dr. Mariam Altman on several occasions. It does not appear to be melanoma. Unfortunately, the prostate markers were also negative; however, given the high PSA, we are going to have to wait for some further stains. I explained this quite carefully to the patient and his . I will see him back in the office in 4 days. We will get an x-ray at that time and go over his final pathology.
== END 2019-09-21 14:18 | disposition home or self-care (01) | DRG 164 ==
LOC: ASU 05:54 → 3N 10:06
DX: C61 Malignant neoplasm of prostate; J95.812 Postprocedural air leak; R33.9 Retention of urine, unspecified; I10 Essential (primary) hypertension; Z85.820 Personal history of malignant melanoma of skin; C78.02 Secondary malignant neoplasm of left lung; Z79.899 Other long term (current) drug therapy; E78.5 Hyperlipidemia, unspecified

== ENCOUNTER 2019-11-12 05:44 | Inpatient (IN) ==
--- NOTE | 2019-10-30 15:40 | Anesthesiology Consultation ---
Date of Service October 30, 2019 Assessment & Plan (1) Encounter for pre-operative examination: - S/P Navigational bronchoscopy, Left wedge resection: 09/17/19: Grade 1 view, MAC#3, ETT 8.5 at [facility] - Check BSG AM DOS Chart Review Chart Review: Acceptable Risk for Surgery and Patient NOT seen in Pre Admission Testing History Surgery Operation Date: 11/12/19 07:30 Proposed Procedures p Robotic Right Video Assisted Thoracoscopy with Right Lower Lobectomy and Mediastinal Lymphadenectomy - Faisal Leon MD, FACS Height/Weight Height: 6 ft Weight: 77.564 kg Allergies Allergy/AdvReac Type Severity Reaction Status Date / Time No Known Allergies Allergy Verified 10/30/19 09:58 Medications Home Medications Medication Instructions Recorded Confirmed Last Taken lisinopril 20 1 tab PO QAM 08/19/19 10/30/19 09/16/19 06:00 mg-hydrochlorothiazide 12.5 mg tablet ibuprofen 400 mg PO Q6H PRN 08/21/19 10/30/19 10/25/19 atorvastatin 10 mg PO QAM 08/22/19 10/30/19 09/16/19 22:00 bicalutamide 50 mg PO HS 10/30/19 10/30/19 Unknown psyllium husk [Fiber (psyllium 0.52 g PO DAILY 10/30/19 10/30/19 Unknown husk)] Past Medical History Medical History Diabetes mellitus, type 2 diet controlled History of ASCVD (arteriosclerotic cardiovascular disease) History of kidney stones History of melanoma Hyperlipidemia Hypertension Lung nodules Past Surgical History Surgical History (Updated 10/30/19 @ 15:35 by Gayle Obando) History of anesthesia reaction post-op dysuria History of cystoscopy w/ stone extraction History of hand surgery Rt - thumb, index finger - hardware present History of lithotripsy History of melanoma excision scalp 2017 History of right inguinal hernia repair History of tooth extraction Status post dissection of cervical lymph nodes Status post lung surgery (09/17/19) Navigational bronchoscopy, Left wedge resection: 09/17/19: Grade 1 view, MAC#3, ETT 8.5 at [facility] Social History Smoking Status: Never smoker Do You Dip or Chew Tobacco: No Hx Alcohol Use: No Hx Substance Use: No substance use type: does not use Testing Laboratory Results 10/21/19 WBC 5.27 H/H 13.9/41.1 PLATELETS 168 SODIUM 139 POTASSIUM 3.9 CHLORIDE 105 CO2 31 BUN 14 CREATININE 1.15 GLUCOSE 128 Electrocardiogram Date: 08/19/19 SR with first degree AVB at 61bpm. NS IVCD. Minimal voltage criteria for LVH, may be normal variant. Cannot rule out septal infarct. Chest X-Ray Date: 09/25/19 There is a small left apical pneumothorax. This has minimally increased in size from 09/21/2019. Subcutaneous emphysema is present in the lower neck bilaterally and along the left chest wall. Small left pleural effusion. A 2.6 cm right lower lobe pulmonary nodule is unchanged and remains highly concerning for neoplasm. Other Testing Brain MRI (indication: scalp melanoma): 10/21/19: No acute intracranial findings. Postsurgical changes involving the left parieto-occipital scalp. No evidence of intracranial metastatic disease. No evidence of acute or subacute infarction.
[2019-11-04 11:46] LABS: Basophils # (auto) 0.02 K/uL (0-0.2); Basophils % (auto) 0.4 %; Eosinophils # (auto) 0.26 K/uL (0-0.5); Eosinophils % (auto) 5.2 %; Hematocrit (blood only) 40.8 % (42-52); Hemoglobin 13.8 g/dL (14.0-18.0); Immature Granulocytes # (auto) 0.01 K/uL (0.00-0.02); Immature Granulocytes % (auto) 0.2 %; Lymphocytes % (auto) 27.8 %; Mean Corpuscular Hemoglobin 30.2 pg (25-34); Mean Corpuscular Hgb Conc 33.8 g/dL (32-36); Mean Corpuscular Volume 89.3 fL (80-100); Mean Platelet Volume 10.3 fL (7.4-10.4); Monocytes # (auto) 0.44 K/uL (0.11-0.59); Monocytes % (auto) 8.7 %; Neutrophils % (auto) 57.7 %; Platelet Count 214 K/uL (130-400); RDW Coefficient of Variation 13.3 % (11.5-14.5); RDW Standard Deviation 43.7 fL (36.4-46.3); Red Blood Count 4.57 M/uL (4.7-6.1); White Blood Count 5.03 K/uL (4.8-10.8)
[2019-11-04 12:02] LABS: BUN Creatinine Ratio 15.2 (10-20); Calcium 9.1 mg/dl (8.5-10.1); Creatinine Clr Calc Pharmacy 63.8 ml/min; Est GFR (African American) 79.7; Est GFR (Non-African American) 68.8
[2019-11-12] MEDS ORDERED: LR 15ML/HR IV SCH (06:00)
--- NOTE | 2019-11-12 06:46 | History & Physical Bridge Note ---
Date of Service November 12, 2019 History & Physical Bridge Note I have examined the patient, reviewed the History & Physical and in the interval since the performance of the History & Physical I have noted the following changes of clinical significance: no changes noted
[2019-11-12] MEDS ORDERED: PROPOFOL IV EMULSION 10 MG/ML 20 ML VIAL IV ONE (07:02)
[2019-11-12] MEDS ORDERED: LIDOCAINE HCL 2% 2 ML VIAL/AMP(20MG/ML) INFIL ONE (07:02)
[2019-11-12] MEDS ORDERED: MIDAZOLAM HCL 1 MG/ML 2ML VIAL ONE (07:02)
[2019-11-12] MEDS ORDERED: PHENYLEPHRINE HCL 10 MG/ML VIAL ONE (07:02)
[2019-11-12] MEDS ORDERED: DEXAMETHASONE SOD INJ 4 MG/ML VIAL ONE (07:02)
[2019-11-12] MEDS ORDERED: fentaNYL citrate 100 MCG/2 ML VIAL ONE (07:02)
[2019-11-12] MEDS ORDERED: ONDANSETRON INJ 2 MG/ML 2 ML VIAL ONE (07:02)
[2019-11-12] MEDS ORDERED: SUCCINYLCHOLINE CHLORIDE 20 MG/ML 10 ML VIAL ONE (07:02)
[2019-11-12] MEDS ORDERED: ePHEDrine sulfate 50 MG/ML AMP ONE (07:02)
[2019-11-12] MEDS ORDERED: NEOSTIGMINE METHYLSULFATE 5 MG/5 ML SYR ONE (07:02)
[2019-11-12] MEDS ORDERED: GLYCOPYRROLATE 0.2 MG/ML VIAL ONE (07:02)
[2019-11-12] MEDS ORDERED: ONDANSETRON INJ 2 MG/ML 2 ML VIAL IV PRN ×2 (07:05→12:38)
[2019-11-12] MEDS ORDERED: LABETALOL HCL IV 5 MG/ML 20ML IV PRN (07:05)
[2019-11-12] MEDS ORDERED: fentaNYL citrate 100 MCG/2 ML VIAL IV PRN (07:05)
[2019-11-12] MEDS ORDERED: HYDROmorphone INJ 1 MG/ML SYRINGE IV PRN (07:05)
[2019-11-12] MEDS ORDERED: ATROPINE SULFATE 0.1 MG/ML 10ML SYR IV PRN (07:05)
[2019-11-12] MEDS ORDERED: PHENYLEPHRINE 100MCG/ML 5ML SYR IV PRN (07:05)
[2019-11-12] MEDS ORDERED: ePHEDrine sulfate 50 MG/ML AMP IV PRN (07:05)
[2019-11-12] MEDS ORDERED: MEPERIDINE HCL 25 MG/ML CARP/VIAL IV PRN (07:05)
[2019-11-12] MEDS ORDERED: BUPIVACAINE LIPOSOME 1.3% 266 MG/20 ML VIAL ONE (07:26)
[2019-11-12] MEDS ORDERED: BUPIVACAINE 0.5 % 5 MG/1 ML MPF 30ML VIAL ONE (07:26)
[2019-11-12] MEDS ORDERED: SODIUM CHLORIDE 0.9% PF 50 ML VIAL ONE (07:26)
[2019-11-12] MEDS ORDERED: CEFAZOLIN 250 MG/ML 1 GM VIAL ONE (08:05)
[2019-11-12] MEDS ORDERED: SURGICEL ABSORB HEMOSTAT 2IN X 14IN TOP ONE (08:29)
[2019-11-12] MEDS ORDERED: CEFAZOLIN 2000MG 2,000 MG/15 ML SYR IV ONE (08:39)
[2019-11-12] MEDS ORDERED: PROGEL PLEURAL AIR LEAK SEALAN 4ML TOP ONE (10:02)
[2019-11-12] MEDS ORDERED: ROCURONIUM BROMIDE 10 MG/ML 5 ML VIAL ONE (10:04)
--- NOTE | 2019-11-12 10:30 | Operative Report ---
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 Post-Op Diagnosis: Metastatic Melanoma to Right Lung I identified the patient and participated in the time-out.: Yes Procedure Operation Date: 11/12/19 07:30 Actual Procedures p Robotic Right Video-Assisted Thoracoscopy with Right Lower Lobectomy, and Mediastinal Lymphadenectomy(Right) - Faisal Leon MD, FACS Surgeon Faisal Leon MD, FACS [employer] Juan GOMEZ Estimated Blood Loss 75 Findings Consistent with Post-Op Diagnosis Specimens Right lower lobe, mediastinal and hilar lymph nodes Drains 24 English right chest tube Anesthesia Type General Complications none Disposition Accompanied Patient To Recovery: Yes Disposition: Recovery Room Description of Procedure This is a soon-to-be 79-year-old male was found to have metastatic melanoma to his left lung we assume he has metastatic melanoma to his right lower lobe. It was not in a position or location where a wedge resection could be performed. We did a wedge resection of his left upper lobe nodule. We presented this patient multiple times in our multidisciplinary cancer conference and elected to proceed with a right lower lobectomy. On 11/12/2019 the patient underwent uncomplicated robot-assisted thoracoscopic right lower lobectomy with mediastinal lymphadenectomy. He tolerated it quite well was extubated in room with negative a blood loss and a tiny air leak. Procedure: Patient was brought to the operating room and laid in the supine position. General anesthesia was induced and endotracheal intubation was informed with a double-lumen tube. After appropriate monitoring lines been placed he was placed in the left lateral decubitus position and his right chest was prepped and draped in usual sterile fashion. After an appropriate timeout had been called and antibiotics given prophylactically, 5 mm port was placed near the mid axillary line in the eighth interspace. We could see there were no adhesions. Using this as guidance we then placed an 8 mm port medially and 8 mm port proximally and then a 5 mm port lower posteriorly and interspace below. 12 mm assistance port placed just above the diaphragm between the camera port and the assistance port. The 5 mm port was replaced with a 12 mm port for the camera. Upon entering to be seen there were no adhesions. We immediately took down the infrapulmonary ligament I really did not see a level 9 node. I did dissect out a level 8 and level 7 nodes. We also got #2 and #4 lymph nodes on the right as well as level 11 and 12's. Some of these were very hard and appeared to be granulomatous. We freed up posteriorly and I could see the vein very nicely inferiorly. We also freed up the bronchus and came down and dissected this out along the bronchus intermedius a bit. Was then flipped around to the anterior side with the lung pulled posteriorly and I was easily able to identify the the vein. We freed that up quite nicely. We then completed the fissure going all the way up to the bronchus and the vein between the middle lobe and the lower lobe. We identified the middle lobe bronchus as well as the middle lobe vein and then identified the middle lobe artery as we dissected out the arterial branches to the lower lobe. Unfortunately, superior segmental artery was stuck to a very hard lymph node. I took down the basilar segment with a Endo DUY stapler and then cleaned off the bronchus below this however I had to do 2 separate staple firings to the bifurcation of the superior segmental artery however we finally were able to get this . We completed the fissure posteriorly with a stapler. We then stapled the bronchus just below the takeoff of the right middle lobe. We then stapled the inferior pulmonary vein. There was a small air leak which we repaired with a stapler along the middle lobe and then placed pro-gel home and area of the upper lobe which was not amenable to stapling or suturing. We then delivered the right lower lobe off in an Endobag through the assistance port which had to be lengthened a bit. We then sprayed pro gel on that on the area described. He had a very small air leak. Then placed 24 English chest tube to the anterior port directed towards the apex and held in place heavy silk suture. 0 Vicryl was used to close the muscle layer fascia of the assistance port as well as the camera port. 4 Monocryl was used in running septic or fashion approximate the wound is. Antimicrobial dressings were placed. At the beginning of the case 266 mg of Exparel were mixed with 30 cc of 0.5% mepivacaine and 2 and 50 cc of normal saline. These were used to inject each of the port sites prior to making incision and we also used it to perform an intercostal block. Patient was extubated in the room with negligible blood loss. He tolerated this procedure quite well. I attest to the content of the Intraoperative Record and any orders documented therein. Any exceptions are noted below.
[2019-11-12] MEDS ORDERED: METOCLOPRAMIDE HCL INJ 5 MG/ML 2 ML VIAL IV ONE (10:45)
[2019-11-12] MEDS ORDERED: ACETAMINOPHEN 1000 MG/100 ML IV IV ONE (11:26)
--- NOTE | 2019-11-12 11:32 | XRay Report ---
XR chest 1V portable CLINICAL HISTORY: RLL COMPARISON STUDY: Chest radiograph September 25, 2019. FINDINGS: A right apical chest tube is in place. There is a moderate to large right pneumothorax. Sup erior pleural separation measures 6.4 cm. Postoperative findings within each lung are noted. There is possible mild mediastinal shift. Mild right lower lung opacity is noted. There is no left pneumothor ax. IMPRESSION: Right apical chest tube in place. Moderate to large right pneumothorax with possible mil d leftward mediastinal shift. Discussed with Dr. Leon. ACT 112: Negative or not required by law. Electronically signed by: Jackson Hurtado M.D. 11/12/2019 11:30 AM
[2019-11-12] MEDS ORDERED: ACETAMINOPHEN 1,000 MG/100 ML VIAL IV STA (11:33)
--- NOTE | 2019-11-12 11:34 | Anesthesiology Progress Note ---
Date of Service November 12, 2019 Anesthesia Post Procedure Vital Signs Vital Signs: Temp Pulse Pulse Resp BP Pulse Ox 11/12/19 11:30 36.4 C L 66 18 121/61 100 11/12/19 11:20 65 18 131/63 100 11/12/19 11:10 68 18 129/65 100 11/12/19 11:00 67 18 127/64 98 11/12/19 10:50 65 18 115/61 100 11/12/19 10:44 36 C L 68 18 129/61 100 11/12/19 06:19 36.7 C 69 18 167/81 H 98 Transfer of Care Handoff Completed per policy Notes Mental Status: alert / awake / arousable Patient Amnestic to Procedure: Yes Nausea / Vomiting: adequately controlled Pain: adequately controlled and improving with treatment Airway Patency, RR, SpO2: stable & adequate BP & HR: stable & adequate Hydration State: stable & adequate Anesthetic Complications: no major complications apparent and Pt Satisfied with anesthetic care Notes: The patient is awake and his vitals are stable. His incision site pain is being treated.
[2019-11-12] MEDS ORDERED: MoRPHine SULFATE 2 MG/ML CARP IV PRN (12:38)
[2019-11-12] MEDS ORDERED: OXYCODONE HCL IR 5 MG TAB (IMMEDIATE RELEASE) PO PRN (12:38)
[2019-11-12] MEDS: D5W AND 1/2NSS 1,000 ML IV SCH ×2 (13:37→22:11)
[2019-11-12] MEDS: METOCLOPRAMIDE HCL INJ 5 MG/ML 2 ML VIAL IV SCH (19:57)
[2019-11-12] MEDS: ACETAMINOPHEN 1,000 MG/100 ML VIAL IV SCH (19:57)
[2019-11-12] MEDS: DOCUSATE SODIUM 100 MG CAP PO SCH (20:00)
[2019-11-12] MEDS: ATORVASTATIN 10 MG TAB PO SCH (20:00)
[2019-11-13] MEDS: ACETAMINOPHEN 1,000 MG/100 ML VIAL IV SCH ×3 (03:57→19:04)
[2019-11-13] MEDS: METOCLOPRAMIDE HCL INJ 5 MG/ML 2 ML VIAL IV SCH (04:01)
[2019-11-13 06:19] LABS: Basophils # (auto) 0.01 K/uL (0-0.2); Basophils % (auto) 0.1 %; Eosinophils # (auto) 0.08 K/uL (0-0.5); Eosinophils % (auto) 0.9 %; Hematocrit (blood only) 35.8 % (42-52); Immature Granulocytes # (auto) 0.01 K/uL (0.00-0.02); Immature Granulocytes % (auto) 0.1 %; Lymphocytes # (auto) 1.03 K/uL (1.2-3.4); Lymphocytes % (auto) 11.8 %; Mean Corpuscular Hemoglobin 30.2 pg (25-34); Mean Corpuscular Volume 90.2 fL (80-100); Mean Platelet Volume 10.1 fL (7.4-10.4); Monocytes # (auto) 0.71 K/uL (0.11-0.59); Monocytes % (auto) 8.1 %; Neutrophils # (auto) 6.91 K/uL (1.4-6.5); Platelet Count 178 K/uL (130-400); RDW Coefficient of Variation 13.2 % (11.5-14.5); RDW Standard Deviation 43.6 fL (36.4-46.3); Red Blood Count 3.97 M/uL (4.7-6.1); White Blood Count 8.75 K/uL (4.8-10.8)
[2019-11-13 06:29] LABS: Mean Corpuscular Hgb Conc 33.5 g/dL (32-36)
[2019-11-13 06:36] LABS: BUN Creatinine Ratio 12.7 (10-20); Calcium 8.2 mg/dl (8.5-10.1); Creatinine Clr Calc Pharmacy 58.7 ml/min; Est GFR (African American) 73.6; Est GFR (Non-African American) 63.5; Potassium 3.9 mmol/L (3.5-5.1)
--- NOTE | 2019-11-13 06:54 | XRay Report ---
XR chest 1V portable CLINICAL HISTORY: RLL COMPARISON STUDY: Chest radiograph November 12, 2019. FINDINGS: Right apical chest tube remains in place. A right pneumothorax has significantly decreased in size. There is a small residual right apical pneumothorax with superior pleural separation of 2.6 cm. There is no evidence for pulmonary edema. There is hazy right basilar opacity. IMPRESSION: Small right pneumothorax, significantly decreased in size since prior exam. Right apical chest tube in place. ACT 112: Negative or not required by law. Electronically signed by: Jackson Hurtado M.D. 11/13/2019 6:52 AM
[2019-11-13] MEDS: D5W AND 1/2NSS 1,000 ML IV SCH (08:04)
[2019-11-13] MEDS: ENOXAPARIN INJ 40 MG/0.4 ML SYR SQ SCH (08:57)
[2019-11-13] MEDS: DOCUSATE SODIUM 100 MG CAP PO SCH ×2 (08:57→20:16)
[2019-11-13] MEDS: BICALUTAMIDE 50 MG TAB PO SCH (08:57)
[2019-11-13] MEDS: lisinopriL 20 MG TAB PO SCH (08:57)
[2019-11-13] MEDS: PSYLLIUM 58.6% POWDER PACKET PO SCH (08:58)
--- NOTE | 2019-11-13 09:24 | Progress Notes ---
DATE: 11/13/2019 The patient was seen this morning. He looks great. He is ready to take a walk. He is on room air. He has been able to urinate, which is surprising as he went into urinary retention when we resected his metastases on the other side. At any rate, he is tolerating a house diet. He sounds great. His x-ray looks very good. He has a very tiny apical pneumothorax. I really do not see much of an air leak. He has drained very little. We will probably remove his chest tube and let him go home tomorrow. I am quite pleased. ASSESSMENT AND PLAN: Postoperative day #1 status post robot-assisted thoracoscopic right lower lobectomy for assumed metastatic melanoma. He has done remarkably well.
--- NOTE | 2019-11-13 10:44 | Anesthesiology Progress Note ---
Date of Service November 13, 2019 Anesthesia Post Procedure Vital Signs Vital Signs: Temp Pulse Pulse Resp BP Pulse Ox 11/13/19 09:00 37.2 C 67 16 114/53 L 96 11/13/19 04:16 36.6 C 59 L 18 117/64 95 11/13/19 00:01 36.9 C 66 16 122/66 95 11/12/19 22:04 37.2 C 73 18 116/65 94 11/12/19 19:54 36.6 C 83 18 160/77 H 94 11/12/19 17:50 37.2 C 85 17 162/82 H 96 11/12/19 16:45 80 18 158/81 H 96 11/12/19 15:00 36.6 C 79 18 149/75 H 97 11/12/19 14:15 36.3 C L 84 17 166/70 H 100 11/12/19 13:15 81 16 143/74 H 100 11/12/19 12:35 36.4 C L 64 16 134/73 100 11/12/19 12:00 36.3 C L 66 17 132/70 100 11/12/19 11:40 36.4 C L 64 21 118/71 100 11/12/19 11:30 36.4 C L 66 18 121/61 100 11/12/19 11:20 65 18 131/63 100 11/12/19 11:10 68 18 129/65 100 11/12/19 11:00 67 18 127/64 98 11/12/19 10:50 65 18 115/61 100 Pain Intensity Right Chest: Pain Intensity: 4 Notes Mental Status: alert / awake / arousable Patient Amnestic to Procedure: Yes Nausea / Vomiting: adequately controlled Pain: adequately controlled Airway Patency, RR, SpO2: stable & adequate BP & HR: stable & adequate Hydration State: stable & adequate Anesthetic Complications: no major complications apparent and Pt Satisfied with anesthetic care
[2019-11-13] MEDS ORDERED: Nursing to Pharmacy Communication ONE (14:38)
[2019-11-13] MEDS: ATORVASTATIN 10 MG TAB PO SCH (20:15)
[2019-11-14] MEDS: ACETAMINOPHEN 1,000 MG/100 ML VIAL IV SCH ×3 (04:16→20:34)
--- NOTE | 2019-11-14 07:35 | XRay Report ---
XR chest 1V portable CLINICAL HISTORY: 78 years-old Male presenting with lobectomy. TECHNIQUE: Portable upright AP view of the chest was obtained. COMPARISON: 11/13/2019. FINDINGS: Large bore right pleural drain position at the right apex as on prior exam. Atherosclerosis of the ao rtic arch. Cardiac silhouette borderline enlarged. Interval increase in right basilar opacity, possib ly very effusion. Decreased aeration of the right lung base. Left lung and pleural space clear. Sutur e margin noted in the paramediastinal left upper lung and right hilar region. No demonstrable pneumot horax at the right apex on the current exam. Osseous structures normal. Upper abdomen normal. IMPRESSION: 1. Interval increase in suspected layering right pleural effusion and right basilar atelectasis. 2. Resolution of prior right apical pneumothorax. 3. Right pleural drain remains in place. 4. Postsurgical changes of the lungs. ACT 112: Negative or not required by law. Results electronically sent 11/14/2019 7:33 AM to: Faisal Leon MD FACS Electronically signed by: Dragan Malone M.D. 11/14/2019 7:33 AM
[2019-11-14] MEDS: lisinopriL 20 MG TAB PO SCH (09:11)
[2019-11-14] MEDS: BICALUTAMIDE 50 MG TAB PO SCH (09:12)
[2019-11-14] MEDS: DOCUSATE SODIUM 100 MG CAP PO SCH ×2 (09:12→20:35)
[2019-11-14] MEDS: PSYLLIUM 58.6% POWDER PACKET PO SCH (09:13)
[2019-11-14] MEDS: POLYETHYLENE (MIRALAX) 17 GM PACK PO SCH (09:13)
[2019-11-14] MEDS: ENOXAPARIN INJ 40 MG/0.4 ML SYR SQ SCH (09:14)
--- NOTE | 2019-11-14 10:39 | Progress Notes ---
DATE: 11/14/2019 Mr. Machuca looks great today. Unfortunately, he still has a small air leak. He was drained. I put him on water seal yesterday and he has got a bit more fluid in his base. I am going to put him back on suction today. We will do that intermittently every 4 hours alternating with water seal. I am hopeful that his air leak seals and we will be able to get him out of the hospital in the next 24-48 hours.
[2019-11-14] MEDS: ATORVASTATIN 10 MG TAB PO SCH (20:35)
[2019-11-15] MEDS: ACETAMINOPHEN 1,000 MG/100 ML VIAL IV SCH ×2 (03:37→12:02)
[2019-11-15 08:18] LABS: Creatinine Clr Calc Pharmacy 75.9 ml/min; Est GFR (African American) 96.1; Est GFR (Non-African American) 82.9
[2019-11-15] MEDS: PSYLLIUM 58.6% POWDER PACKET PO SCH (09:32)
[2019-11-15] MEDS: DOCUSATE SODIUM 100 MG CAP PO SCH ×2 (09:32→20:20)
[2019-11-15] MEDS: POLYETHYLENE (MIRALAX) 17 GM PACK PO SCH (09:32)
[2019-11-15] MEDS: ENOXAPARIN INJ 40 MG/0.4 ML SYR SQ SCH (09:33)
[2019-11-15] MEDS: lisinopriL 20 MG TAB PO SCH (09:35)
[2019-11-15] MEDS: BICALUTAMIDE 50 MG TAB PO SCH (09:38)
--- NOTE | 2019-11-15 10:10 | XRay Report ---
XR chest 1V portable CLINICAL HISTORY: 78 years-old Male presenting with pod3 RLL. TECHNIQUE: Portable upright AP view of the chest was obtained. COMPARISON: 11/13. FINDINGS: Large bore right pleural drain remains positioned at the right apex. Atherosclerosis of the aortic ar ch. Cardiac silhouette top normal in size. Persistence hazy right basilar opacity likely indicative o f a layering right pleural effusion. Suture margin projects over the right perihilar region compatibl e with the recent right lower lobectomy. No pneumothorax. Degenerative changes of the thoracic spine. Upper abdomen normal. IMPRESSION: 1. Stable postoperative changes with possible layering right pleural effusion and right basilar atel ectasis. 2. Right pleural drain. No pneumothorax. ACT 112: Negative or not required by law. Electronically signed by: Dragan Malone M.D. 11/15/2019 10:09 AM
--- NOTE | 2019-11-15 10:13 | Surgery Progress Note ---
Date of Service November 15, 2019 Assessment & Plan (1) Metastatic melanoma to lung: POD#3 right lower lobectomy clinically appears to be doing well will obtain CXR this AM place chest tube to waterseal today encourage ongoing pulmonary toilet and ambulation pt seen and examined with Dr. Altman Subjective Patient states he is feeling good, pretty much the same as yesterday. He was seen walking the halls. Physical Exam Physical Exam: awake/alert Respiratory: normal respiratory effort room air Chest (Breasts): Additional Comments: chest tube in place, no airleak noted with respirations, CT drainage documented 34cc over 24 hours Results & Data Vital Signs (Past 12 Hours) Vital Signs Temp Pulse Pulse Resp BP Pulse Ox 11/15/19 09:29 75 149/86 H 11/15/19 08:22 36.5 C 64 19 168/83 H 95 11/15/19 03:23 36.8 C 61 16 139/78 95 11/14/19 22:55 36.7 C 64 16 162/79 H 95 PG Care Time/CCT Total # of Minutes Spent Total Time Spent with Patient: Total time spent is greater than 50% in co ordination of care (as documented) at patient's floor/unit and/or counseling patient: Coding Level of Care Code None Diagnoses Metastatic melanoma to lung C78.00
[2019-11-15] MEDS: ATORVASTATIN 10 MG TAB PO SCH (20:20)
[2019-11-16] MEDS: lisinopriL 20 MG TAB PO SCH (06:26)
--- NOTE | 2019-11-16 07:57 | XRay Report ---
XR chest 1V portable HISTORY: Follow-up pneumothorax. COMPARISON: Chest 11/15/2019. FINDINGS: Right chest tube turns in the right lung apex. No significant change in the small right api guido pneumothorax with a pleural gap of 11 mm. Small amount of right chest wall subcutaneous emphysema persists. The heart is normal in size. Hazy appearance to the right lung base remains unchanged. The left lung is essentially clear. IMPRESSION: No change in the small right pneumothorax and right-sided chest tube. ACT 112: Negative or not required by law. Electronically signed by: Juma Grayson M.D. 11/16/2019 7:56 AM
[2019-11-16] MEDS: DOCUSATE SODIUM 100 MG CAP PO SCH ×2 (08:49→20:29)
[2019-11-16] MEDS: POLYETHYLENE (MIRALAX) 17 GM PACK PO SCH (08:50)
[2019-11-16] MEDS: PSYLLIUM 58.6% POWDER PACKET PO SCH (08:50)
[2019-11-16] MEDS: ENOXAPARIN INJ 40 MG/0.4 ML SYR SQ SCH (08:50)
[2019-11-16] MEDS: BICALUTAMIDE 50 MG TAB PO SCH (09:00)
--- NOTE | 2019-11-16 09:14 | Surgery Progress Note ---
Date of Service November 16, 2019 Assessment & Plan (1) Metastatic melanoma to lung: POD#4 right lower lobectomy CXR stable off suction moderate drainage, will leave tube in for today pt seen and examined with Dr. Altman Subjective no complaints Physical Exam Respiratory: no air leak, 250 cc drainage past 24 hrs Results & Data Vital Signs (Past 12 Hours) Vital Signs Temp Pulse Resp BP Pulse Ox 11/16/19 07:32 61 147/82 H 11/16/19 06:05 174/85 H 11/15/19 22:54 37.0 C 69 22 164/81 H 95 PG Care Time/CCT Total # of Minutes Spent Total Time Spent with Patient: Total time spent is greater than 50% in coordination of care (as documented) at patient's floor/unit and/or counseling patient: Coding Level of Care Code None Diagnoses Metastatic melanoma to lung C78.00
[2019-11-16] MEDS: ATORVASTATIN 10 MG TAB PO SCH (21:30)
--- NOTE | 2019-11-17 07:34 | XRay Report ---
XR chest 1V portable CLINICAL HISTORY: 78 years-old Male presenting with chest tube. TECHNIQUE: Portable upright AP view of the chest was obtained. COMPARISON: 11/16/2019. FINDINGS: Large bore right pleural drain position at the right apex, unchanged. Soft tissue emphysema along the inferior right lateral chest wall. Atherosclerosis and mild tortuosity of the thoracic aorta. Cardia c silhouette mildly enlarged. A gradient of density is noted at the right lung base, unchanged. Sutur e margins project over the right hilum. Few right infrahilar opacities likely vascular. Small right p neumothorax. This is unchanged. Suture margin also noted at the paramediastinal left apex. Degenerati ve changes of the thoracic spine. Dextroscoliosis. Upper abdomen normal. IMPRESSION: 1. Stable small right pneumothorax with the right pleural drain unchanged in position. 2. The appearance of the right lung base may suggest a small layering right pleural effusion versus postsurgical change. ACT 112: Negative or not required by law. Electronically signed by: Dragan Malone M.D. 11/17/2019 7:32 AM
[2019-11-17] MEDS: PSYLLIUM 58.6% POWDER PACKET PO SCH (08:44)
[2019-11-17] MEDS: DOCUSATE SODIUM 100 MG CAP PO SCH (08:44)
[2019-11-17] MEDS: ENOXAPARIN INJ 40 MG/0.4 ML SYR SQ SCH (08:44)
[2019-11-17] MEDS: POLYETHYLENE (MIRALAX) 17 GM PACK PO SCH (08:44)
[2019-11-17] MEDS: BICALUTAMIDE 50 MG TAB PO SCH (08:45)
[2019-11-17] MEDS: lisinopriL 20 MG TAB PO SCH (08:45)
--- NOTE | 2019-11-17 11:49 | Surgery Progress Note ---
Date of Service November 17, 2019 Assessment & Plan (1) Metastatic melanoma to lung: POD#5 right lower lobectomy CXR stable off suction x48 hrs and drainage decreased chest tube removed d/c home this afternoon if remains stable pt seen and examined with Dr. Altman Subjective some swelling left forearm from IV site which was removed last night Physical Exam Respiratory: chest tube drainage 150 cc past 24 hours, no air leak Musculoskeletal: 6 cm area left forearm swelling, no erythema Results & Data Vital Signs (Past 12 Hours) Vital Signs Temp Pulse Pulse Pulse Resp BP BP 11/17/19 11:39 36.6 C 76 65 67 16 128/64 147/82 H 11/17/19 07:50 36.6 C 76 16 128/64 Pulse Ox 11/17/19 11:39 97 11/17/19 07:50 97 PG Care Time/CCT Total # of Minutes Spent Total Time Spent with Patient: Total time spent is greater than 50% in coordination of care (as documented) at patient's floor/unit and/or counseling patient: Coding Level of Care Code None Diagnoses Metastatic melanoma to lung C78.00
--- NOTE | 2019-11-19 08:32 | Coding Query ---
Your help is needed for correct coding of this account; please clarify if the patients Air Leak was: ( X) expected out of the surgery ( ) unexpected complication from the surgery ( )other please specify Thank you Mayuri VALDIVIA
--- NOTE | 2019-11-19 08:32 | Coding Query ---
PATHOLOGY To promote full compliance with coding requirements relating to patient care, physician participation is requested in all cases of mobile manager uncertainty. Please assist us with the question(s) below: Please review the Pathology report and please document any relevant diagnosis(es) below: Diagnosis(es):Benign pulmonary nodule RLL Thank you Mayuri VALDIVIA
--- NOTE | 2019-11-24 11:57 | Discharge Summary (DS) ---
DISCHARGE DIAGNOSES: 1. Metastatic melanoma to left upper lobe. 2. 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 3. Status post robot-assisted thoracoscopic left upper lobe wedge resection after a navigational bronchoscopy. 4. Robot-assisted thoracoscopic right lower lobectomy. HOSPITAL COURSE: Elvis Machuca is a very nice 78-year-old male who had a melanoma of his scalp, which was resected 3 years ago in 09/2016. He had sentinel node biopsy, which was negative. He did not receive treatment after multiple considerations and discussions. In 07/2019, he had a CT scan of his chest, which revealed 2 pulmonary nodules. Both of these were worrisome. The left medial upper lobe mass was smaller, but after much discussion including multiple times at our multidisciplinary cancer conference, I took him to the operating room and did a navigational bronchoscopy and wedged this mass out. This was done on 09/17/2019. This was a metastatic melanoma. After much discussion again in our multidisciplinary conference, we elected to offer him a right lower lobectomy. I could not wedge this mass out. We had done a navigational bronchoscopy and did not get an answer. It certainly appeared to us to represent a metastatic deposit. On 11/12/2019, I performed a robot-assisted thoracoscopic right lower lobectomy without difficulty. He did well except for small air leak. We finally discharged home on postoperative day #5 and he looked very good. His mass turned out to be benign; however, it is interesting. It has granulomatous inflammation and there is a question about a vasculitis. This would have great implications on this patient's ongoing treatment. For this reason, I am going to present him at our multidisciplinary cancer conference. I will see him back in the office next week.
== END 2019-11-17 14:12 | disposition home or self-care (01) | DRG 164 ==
LOC: ASU 05:44 → 3W 10:30

== ENCOUNTER 2024-07-13 11:42 | Inpatient (IN) ==
--- OUTSIDE RECORDS SUMMARY | 2024-07-13 11:47 | External Medical Summary | Continuity of Care Document ---
Author Name Unknown Organization [facility] [address] [place], [place] [id number] Care Team Providers Care Acute Care Clinical Nurse Specialist Name Role Phone Forrest Slater Primary Care Physician [phone] [id number] Date[facility]s): [facility]/16/24 - 06/16/24 [facility] [address] [facility] [address] [place], [phone] Encounter Diagnosis Benign prostatic hyperplasia without lower urinary tract symptoms(Final) - Discharge Disposition: Home or Self Care Attending Physician: CORNELIO Pablo Lauren Beth Referring Physician: CORNELIO Pablo Lauren Beth Allergies, Adverse Reactions, Alerts Substance Criticality Severity Reaction Reaction Severity Status Coreg fogginess/dizziness Active Immunizations Given and Recorded Vaccine Date Status Refusal Reason pneumococcal 13-valent vaccine 12/21/16 Given influenza virus vaccine, inactivated 07/08/15 Give n influenza virus vaccine, inactivated 07/22/14 Give n pneumococcal 23-valent vaccine 07/22/14 Given zoster vaccine live 11/04/13 Recorded tetanus/diphtheria/pertuss, acel (Tdap) 10/14/13 G iven Medications atorvastatin 10 mg oral tablet Start: 06/17/24 3:21:00 PM EDT, 1 tab, PO, Daily, Disp# 90 tab, Refills: 3, Pharmacy: [facility] Start Date: 06/17/24 Status: Ordered Cinnamon Start: 06/09/22 9:05:00 AM EDT Start Date: 06/09/22 Status: Ordered CoQ10 100 mg oral capsule Start: 05/13/24 8:54:00 AM EDT Start Date: 05/13/24 Status: Ordered Eliquis 5 mg oral tablet Start: 04/10/24 11:14:00 AM EDT, 1 tab, PO, bid, Disp# 180 tab, Refills: 2, Pharmacy: [id number] Start Date: 04/10/24 Stop Date: 01/05/25 Status: Ordered Entresto 97 mg-103 mg oral tablet Start: 12/27/23 3:28:00 PM EDT, 1 tab, PO, bid, Disp# 180 tab, Refills: 3, Pharmacy: [facility] Start Date: 12/27/23 Status: Ordered finasteride 5 mg oral tablet Start: 06/09/22 9:02:00 AM EDT, 1 tab, PO, Daily Start Date: 06/09/22 Status: Ordered Flax Seed Oil oral capsule Start: 06/09/22 9:05:00 AM EDT Start Date: 06/09/22 Status: Ordered furosemide 20 mg oral tablet Start: 05/13/24 8:56:00 AM EDT, 1 tab, PO, Daily Start Date: 05/13/24 Status: Ordered glucosamine 500 mg oral capsule Start: 05/13/24 8:54:00 AM EDT, 1 cap, PO, Daily Start Date: 05/13/24 Status: Ordered levothyroxine 50 mcg (0.05 mg) oral tablet Start: 03/28/24 1:35:00 PM EDT, 1 tab, PO, Daily, Disp# 90 tab, Refills: 3, Pharmacy: [facility] Start Date: 03/28/24 Stop Date: 03/23/25 Status: Ordered Metoprolol Succinate ER 25 mg oral tablet, extended release Start: 06/16/24 9:02:00 AM EDT, 1 tab, PO, qhs, Disp# 90 tab, Refills: 3, Pharmacy: [facility] Start Date: 06/16/24 Status: Ordered multivitamin Start: 05/13/24 8:53:00 AM EDT, 1 tab, PO, Daily Start Date: 05/13/24 Status: Ordered Nature's Bounty Red Krill Oil Start: 06/09/22 9:03:00 AM EDT Start Date: 06/09/22 Status: Ordered One Touch Delica Plus (33G) Lancets Start: 10/17/19 2:48:00 PM EST, See Instructions, Disp# 100 each, Refills: 3, use to check glucose levels TID, Note to Pharmacy: [email or web address], Pharmacy: [place] [facility] [id number] Start Date: 10/17/19 Status: Ordered One Touch Ultra 2 Glucose Monitor Start: 12/29/16 10:34:00 AM EDT, See Instructions Start Date: 12/29/16 Status: Ordered One Touch Ultra Test Strips 100 ct Start: 02/23/23 12:26:00 PM EDT, See Instructions, Disp# 100 strip, Refills: 3, USE TO TEST 3 TIMES DAILY AND NEEDED, Note to Pharmacy: one touch ultra blue, Pharmacy: [place] [id number] Start Date: 02/23/23 Status: Ordered ONETOUCH DELICA TYLER 33G MIS Start: 10/11/22 11:09:00 AM EST, ONETOUCH DELICA TYLER 33G MIS, See Instructions, Disp# 88 each, Refills: 3, USE TO CHECK GLUCOSE LEVELS 3 TIMES DAILY, Pharmacy [place] [id number] Start Date: 10/11/22 Status: Ordered ONETOUCH DELICA TYLER 33G MIS ONETOUCH DELICA TYLER 33G MIS, See Instructions, Disp# 100 each, Refills: 3, USE TO CHECK GLUCOSE LEVELS 3 TIMES DAILY, Pharmacy [place] [id number] Start Date: 12/14/20 Status: Ordered ONETOUCH DELICA TYLER 33G MIS Start: 05/10/23 2:40:00 PM EDT, ONETOUCH DELICA TYLER 33G MIS, See Instructions, Disp# 100 each, Refills: 3, USE TO CHECK GLUCOSE LEVELS 3 TIMES DAILY, Pharmacy [place] [id number] Start Date: 05/10/23 Status: Ordered ONETOUCH DELICA TYLER 33G MIS Start: 01/29/23 3:43:00 PM EDT, ONETOUCH DELICA TYLER 33G MIS, See Instructions, Disp# 100 each, Refills: 3, USE TO CHECK GLUCOSE LEVELS 3 TIMES DAILY, Pharmacy [place] [id number] Start Date: 01/29/23 Status: Ordered ONETOUCH DELICA TYLER 33G MIS Start: 05/02/22 2:51:00 PM EDT, ONETOUCH DELICA TYLER 33G MIS, See Instructions, Disp# 100 each, Refills: 3, USE TO CHECK GLUCOSE LEVELS 3 TIMES DAILY, Pharmacy [place] [id number] Start Date: 05/02/22 Status: Ordered ONETOUCH DELICA TYLER 33G MIS Start: 08/31/23 12:32:00 PM EST, ONETOUCH DELICA TYLER 33G MIS, See Instructions, Disp# 100 each, Refills: 0, USE TO CHECK GLUCOSE LEVELS 3 TIMES DAILY, [place] [id number] Start Date: 08/31/23 Status: Ordered ONETOUCH DELICA TYLER 33G MIS ONETOUCH DELICA TYLER 33G MIS, See Instructions, Disp# 100 each, Refills: 3, USE TO CHECK GLUCOSE LEVELS 3 TIMES DAILY, [place] [id number] Start Date: 10/19/21 Status: Ordered OneTouch Ultra Blue In Vitro Strip Start: 10/11/22 11:09:00 AM EST, OneTouch Ultra Blue In Vitro Strip, See Instructions, Disp# 88 each,Refills: 0, USE TO TEST 3 TIMES DAILY AND NEEDED, [place] [id number] Start Date: 10/11/22 Status: Ordered OneTouch Ultra Blue In Vitro Strip OneTouch Ultra Blue In Vitro Strip, See Instructions, Disp# 100 each, Refills: 3, USE TO TEST 3 TIMES DAILY AND NEEDED, [place] [id number] Start Date: 03/22/21 Status: Ordered OneTouch Ultra Blue In Vitro Strip Start: 10/31/22 2:00:00 PM EST, OneTouch Ultra Blue In Vitro Strip, See Instructions, Disp# 88 each,Refills: 3, USE TO TEST 3 TIMES DAILY AND NEEDED, [place] [id number] Start Date: 10/31/22 Status: Ordered OneTouch Ultra Blue In Vitro Strip Start: 05/02/22 2:51:00 PM EDT, OneTouch Ultra Blue In Vitro Strip, See Instructions, Disp# 100 each, Refills: 3, USE TO TEST 3 TIMES DAILY AND NEEDED, [place] [id number] Start Date: 05/02/22 Status: Ordered OneTouch Ultra Blue In Vitro Strip Start: 11/06/23 2:02:00 PM EST, OneTouch Ultra Blue In Vitro Strip, See Instructions, Disp# 100 each, Refills: 3, USE 1 STRIP TO CHECK GLUCOSE THREE TIMES DAILY NEEDED, [place] [id number] Start Date: 11/06/23 Status: Ordered OneTouch Ultra Blue In Vitro Strip Start: 07/02/23 12:36:00 PM EDT, OneTouch Ultra Blue In Vitro Strip, See Instructions, Disp# 100 each, Refills: 3, USE 1 STRIP TO CHECK GLUCOSE THREE TIMES DAILY AND NEEDED, Pharmacy [id number] Start Date: 07/02/23 Status: Ordered Probiotic Formula Start: 06/09/22 9:02:00 AM EDT Start Date: 06/09/22 Status: Ordered tamsulosin 0.4 mg oral capsule Start: 06/09/22 9:02:00 AM EDT, 1 cap, PO, Daily Start Date: 06/09/22 Status: Ordered Vitamin D3 Start: 08/19/20 12:48:00 PM EST, 5,000 Int_Unit = Start Date: 08/19/20 Status: Ordered Problem List Condition Confirmation Course Effective Dates Status H ealth Status Informant Acquired hypothyroidism Confirmed Active DVT of lower limb, acute Confirmed Active Cardiomyopathy Confirmed Active 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 Pulmonary fibrosis, unspecified Confirmed Active Kidney stone Confirmed Active LBBB (left bundle branch block) Confirmed Active Melanoma Confirmed Active Onychomycosis Confirmed Active Secondary malignant neoplasm of left lung Confirmed Active Skin lesion Confirmed Active Systolic heart failure Confirmed Active 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 Ryan Quevedo D.O. Procedures Procedure Date Related Diagnosis Body Site Status Cataract Right eye 06/21/22 Comple jose carlos Diabetic retinal eye exam 1 03/02/[address] of abdomen and pelvis wit h iv and oral con 2 03/26/[address] of chest with IV con 3 03/26/20 Completed Lobectomy- right 11/12/19 Complete d Lymphadenectomy mediastinal (right) 11/12/19 Completed Thoracoscopy 11/12/19 Completed PFT - Pulmonary function tests 4 08/26/19 Completed X-ray of lumbar spine and pelvis 5 03/19/19 Completed Shave biopsy and cauterisation of skin 02/20/19 Completed Examining eye 12/04/17 Completed Shave biopsy and cauterization of skin 09/25/16 Completed History of ureteral stent placement 6 06/25/09 Completed Anaesthesia for hernia repai r in lower abdomen 1999 Completed Lithotripsy of kidney Com pleted Procedure 7 Completed 1Mild nonproliferative retinopathy left eye 21. no acute intra-abdominal or intrapelvic abnormality. 2. no evidence of metastatic disease or pathologic adenopathy. 3. colonic diverticulosis without acute diverticulitis. 4. 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 5. 1.3 cm calculus of the dependent urinary bladder. 6. right pleural effusion appears stable to slightly decreased in size from comparison. 7. additional findings as above 31. postsurgical changes, within both hemithoraces. no evidence of parenchymal metastasis. 2. persistent right pleural effusion. 3. slight increase in the size of hypervascular right axillary lymph nodes. iven the interval change in appearance, pathologic nodes must be considered. 4Mild obstructive lung defect with bronchodilator response 51. Grade 1 anterolisthesis of L3 on L4 2. No fracture within the lumbar spine 3. Degenerative changes as described above 6Right renal lithiasis 7lobe removed from right lung and wedge on left young Results Laboratory List Name Date Prostate Specific Antigen (PSA, TOTAL) 1 Request to FAX Report (First Location) ( ACC NO TO BE FAXED) 06/16/24 Most recent to oldest [Reference Range]: 1 PSA, Total [<7.21 ng/mL] 1.15 ng/mL (06/16/24 10:43 AM) Phone No [phone] (06/16/24 10:43 AM) Faxed on: 06/17/24 08:42 (06/16/24 10:43 AM) 1Result Comment: Testing Performed By: [facility] [address] [address] [facility] [place] [address] Social History Social History Type Response Smoking Status Never smoked cigaret vishnu Sex Male Sex Representation Male (finding) Patient Care team information Care Team Personnel Name: DO Slater Franklin J Position: Physician - Family Med Member Role: Primary Care Provider Address: [address] [place] [address] [address] [place] [address] [place] Care Team Related Persons Name: BRUCE SÁNCHEZ Name: BRUCE SÁNCHEZ Name: ALLA GARCÍA Name: ALLA GARCÍA
[2024-07-13 12:38] LABS: Basophils # (auto) 0.03 K/uL (0.00-0.20); Basophils % (auto) 0.5 %; Eosinophils # (auto) 0.11 K/uL (0.00-0.50); Eosinophils % (auto) 1.9 %; Hematocrit (blood only) 48.1 % (42.0-52.0); Hemoglobin 16.1 g/dl (14.0-18.0); Immature Granulocytes # (auto) 0.01 K/uL (0.01-0.20); Immature Granulocytes % (auto) 0.2 %; Lymphocytes # (auto) 1.37 K/uL (1.20-3.40); Lymphocytes % (auto) 23.1 %; Mean Corpuscular Hemoglobin 31.4 pg (25.0-34.0); Mean Corpuscular Hgb Conc 33.5 g/dL (32.0-36.0); Mean Corpuscular Volume 93.9 fL (80.0-100.0); Mean Platelet Volume 10.5 fL (9.4-12.4); Monocytes # (auto) 0.42 K/uL (0.11-0.59); Monocytes % (auto) 7.1 %; Neutrophils # (auto) 3.99 K/uL (1.40-6.50); Neutrophils % (auto) 67.2 %; Platelet Count 161 K/uL (130-400); RDW Standard Deviation 51.9 fL (36.4-46.3); Red Blood Count 5.12 M/uL (4.70-6.10); White Blood Count 5.93 K/ul (4.8-10.8)
--- NOTE | 2024-07-13 12:45 | Emergency Department Note ---
History of Present Illness General Chief complaint: Shortness of Breath/Dyspnea Stated complaint: SOB Time Seen by Provider: 07/13/24 12:12 Source: patient, family ( was at the bedside. I also did talk to his son on the telephone), RN notes reviewed and old records reviewed (05/06/24-pulmonary visit for pleural effusion) Mode of arrival: ambulatory Limitations: no limitations History of Present Illness This patient 83-year-old male who comes in with shortness of breath . he feels like he has had this for about 2 weeks off and on it is worse at night he said he had a difficult night last night when he was laying flat he feels much better now. He did have a pleural effusion that was removed about 3 to 4 weeks ago on the right by interventional radiology. He has had some lower extremity edema that is been there for several weeks. He is on Eliquis for history of DVT ,no history of PE. No fall or trauma. No chest pain no fall or trauma no fever or cough or respiratory symptoms otherwise. He does have a history of lung cancer possibly in the past but is not on chemo or radiation. He did have a lower extremity fracture on February 21 Home Medications Medication Instructions Recorded Confirmed Type atorvastatin 20 mg tablet 10 mg PO QPM 08/22/19 07/13/24 History sacubitril 49 mg-valsartan 51 mg 1 tab PO BID 06/19/22 07/13/24 History tablet (Entresto) apixaban 5 mg tablet (Eliquis) 5 mg PO BID #72 tabs 03/11/24 07/13/24 Rx furosemide 20 mg tablet (Lasix) 20 mg PO DAILY #90 tabs 05/27/24 07/13/24 Rx tamsulosin 0.4 mg capsule 0.4 mg PO DAILY #30 caps 06/10/24 07/13/24 Rx finasteride 5 mg tablet 5 mg PO DAILY #90 tabs 07/03/24 07/13/24 Rx levothyroxine 50 mcg tablet 50 mcg PO DAILY 07/13/24 07/13/24 History metoprolol succinate 25 mg capsule 25 mg PO PM 07/13/24 07/13/24 History sprinkle, ext. 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, <= 40%) Pulmonary embolism Pleural effusion (Acute) Shortness of breath (Acute) Venous thrombosis Pleural effusion Leg edema, left Closed fracture of left distal fibula Nephrolithiasis (Acute) Idiopathic polyneuropathy (Acute) Hypertension (Acute) Gross hematuria (Acute) Carpal tunnel syndrome of right wrist (Acute) Benign prostatic hyperplasia without urinary obstruction (Acute) Hx of melanoma of skin Multiple lung nodules on CT Lung nodules Encounter for pre-operative examination Elevated PSA Urinary retention Prostate cancer 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 PT NOT SURE Bladder stones CURRENT AND HX OF Enlarged prostate History of kidney stones Diabetes mellitus, type 2 History of melanoma Hypertension Hyperlipidemia History of ASCVD (arteriosclerotic cardiovascular disease) Surgical History Hx of cataract extraction LT. History of lung surgery Robotic Right Video-Assisted Thoracoscopy with Right Lower Lobectomy, and Mediastinal Lymphadenectomy Dr. Leon 11-12-19 History of anesthesia reaction post-op dysuria (WITH RIGHT LUNG SX) Status post lung surgery (09/17/19) Navigational bronchoscopy, Left wedge resection: 09/17/19: Grade 1 view, MAC#3, ETT 8.5 at [facility] History of tooth extraction History of lithotripsy History of cystoscopy w/ stone extraction History of right inguinal hernia repair History of hand surgery Rt - thumb, index finger - hardware present Status post dissection of cervical lymph nodes History of melanoma excision scalp 2016 Social History Smoking Status: Never smoker Second Hand Exposure: No; Do You Dip or Chew Tobacco: No; Hx Alcohol Use: No Hx Substance Use: No Preferred Language: [place] Communication Ability: Effective Visual Impairment: No 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 Beliefs That Will Affect Care: None marital status: Current Living Situation: Spouse current occupational status: retired Feels Safe at Home: Yes Safety Concerns: Feels Safe At This Time Diet: low carbohydrate Assistive Devices: Glasses Review of Systems A total of 10 systems reviewed and were otherwise negative Physical Exam Vital Signs Vital Signs - 24 hr 07/13/24 11:54 07/13/24 12:14 07/13/24 12:14 Temperature 36.2 C L Temperature Source Temporal Artery Scan Pulse Rate 65 Pulse Rate [Apical] Pulse Rate from SpO2 Sensor Pulse Rhythm Regular Pulse Strength Normal Respiratory Rate 20 Respiratory Effort / Characteristics Non-Labored Spontaneous Non-Labored Spontaneous Respiratory Depth Normal Normal Respiratory Pattern Regular Regular Blood Pressure 152/100 H Blood Pressure [Left Arm] Blood Pressure Mean 117 Blood Pressure Mean [Left Arm] Blood Pressure Position Sitting Pulse Oximetry 95 95 Oxygen Delivery Method Room Air Room Air Room Air Sepsis Recent Fever Within 48 Hours No Sepsis New/Unexplained Change in Mental Status N/A Sepsis Action Taken by Nursing No Action Required 07/13/24 12:14 07/13/24 12:40 07/13/24 13:26 Temperature Temperature Source Pulse Rate 63 64 Pulse Rate [Apical] 62 Pulse Rate from SpO2 Sensor Pulse Rhythm Regular Pulse Strength Respiratory Rate 18 20 Respiratory Effort / Characteristics Non-Labored Respiratory Depth Normal Respiratory Pattern Blood Pressure Blood Pressure [Left Arm] 146/97 H Blood Pressure Mean Blood Pressure Mean [Left Arm] 113 Blood Pressure Position Pulse Oximetry 96 95 Oxygen Delivery Method Room Air Room Air Sepsis Recent Fever Within 48 Hours Sepsis New/Unexplained Change in Mental Status Sepsis Action Taken by Nursing 07/13/24 15:00 07/13/24 15:03 07/13/24 15:15 Temperature Temperature Source Pulse Rate Pulse Rate [Apical] 63 Pulse Rate from SpO2 Sensor 64 67 Pulse Rhythm Pulse Strength Respiratory Rate 19 Respiratory Effort / Characteristics Respiratory Depth Normal Respiratory Pattern Blood Pressure Blood Pressure [Left Arm] 154/110 H Blood Pressure Mean Blood Pressure Mean [Left Arm] 124 Blood Pressure Position Pulse Oximetry 93 92 91 Oxygen Delivery Method Room Air Sepsis Recent Fever Within 48 Hours Sepsis New/Unexplained Change in Mental Status Sepsis Action Taken by Nursing 07/13/24 15:30 07/13/24 15:51 Temperature Temperature Source Pulse Rate 62 60 Pulse Rate [Apical] Pulse Rate from SpO2 Sensor 65 63 Pulse Rhythm Pulse Strength Respiratory Rate 14 25 H Respiratory Effort / Characteristics Respiratory Depth Respiratory Pattern Blood Pressure Blood Pressure [Left Arm] Blood Pressure Mean Blood Pressure Mean [Left Arm] Blood Pressure Position Pulse Oximetry 91 Oxygen Delivery Method Sepsis Recent Fever Within 48 Hours Sepsis New/Unexplained Change in Mental Status Sepsis Action Taken by Nursing General: Well developed well nourished older male who appears in no acute distress, breathing comfortably on room air. Normal speech HEENT: Normal cephalic atraumatic. Pupils are equal round and reactive to light. Sclera anicteric. Extraocular movements are intact. Oropharynx is pink with moist mucous membranes. No swelling of the mouth lips or tongue. Neck: Supple with a midline trachea. No meningeal signs or stiffness, no JVD or bruits. No Stridor. Chest: Clear to auscultation bilaterally somewhat diminished breath sounds on the right compared to left in the bases. No wheezes or rhonchi. No increased work of breathing. Heart: Regular rate and rhythm without murmurs or gallops. Abdomen: Soft nontender, nondistended without rebound guarding or rigidity. Extremities: No cyanosis clubbing. He has 1-2+ pitting edema bilaterally. No redness. Spine/Back. Non tender to palpation. No CVA tenderness Skin: Good turgor without rashes. Neurologic exam: Cranial nerves two through 12 are intact. Motor and sensation are intact and symmetrical throughout. Course Administered Medications Discontinued Medications Furosemide (Furosemide 40 Mg/4 Ml Vial) 40 mg IV ONE ONE Stop: 07/13/24 15:50 Last Admin: 07/13/24 16:32 Dose: 40 mg Documented By: MINA Ioversol (Optiray 320 125ml) 120 ml IV ONCE ONE Stop: 07/13/24 14:31 Last Admin: 07/13/24 14:30 Dose: 120 ml Documented By: CLARKK Medical Decision Making Differential Diagnosis Pleural effusion, acute coronary syndrome, CHF, electrolyte or metabolic abnormality, anemia, arrhythmia, DVT/PE, infection Medical Records Attestation: I reviewed the patient's medical records. Home Medications Current Medication List: was personally reviewed by me Laboratory Data Attestation: I reviewed the patient's lab results. 07/13/24 12:19 07/13/24 12:19 Lab Results 11/03/24 11/03/24 Range/Units 12:19 14:04 WBC 5.93 (4.8-10.8) K/ul RBC 5.12 (4.70-6.10) M/uL Hgb 16.1 (14.0-18.0) g/dl Hct 48.1 (42.0-52.0) % MCV 93.9 (80.0-100.0) fL MCH 31.4 (25.0-34.0) pg MCHC 33.5 (32.0-36.0) g/dL RDW Std Deviation 51.9 H (36.4-46.3) fL RDW Coeff of [place] 15.0 H (11.5-14.5) % Plt Count 161 (130-400) K/uL MPV 10.5 (9.4-12.4) fL Immature Gran % (Auto) 0.2 % Neut % (Auto) 67.2 % Lymph % (Auto) 23.1 % [place] % (Auto) 7.1 % Eos % (Auto) 1.9 % Baso % (Auto) 0.5 % Neut # (Auto) 3.99 (1.40-6.50) K/uL Lymph # (Auto) 1.37 (1.20-3.40) K/uL [place] # (Auto) 0.42 (0.11-0.59) K/uL Eos # (Auto) 0.11 (0.00-0.50) K/uL Baso # (Auto) 0.03 (0.00-0.20) K/uL Immature Gran # (Auto) 0.01 (0.01-0.20) K/uL PT 12.6 H (9.0-12.0) Seconds INR 1.2 H (0.9-1.1) APTT 27 (21-31) Seconds PTT Ratio 1.0 D-Dimer 1910 H* (0-500) ug/L FEU Sodium 144 (136-145) mmol/L Potassium 4.1 (3.5-5.1) mmol/L Chloride 112 H (98-107) mmol/L Carbon Dioxide 25 (21-32) mmol/L Anion Gap 7 (3-11) BUN 20 (6-23) mg/dl Creatinine 1.14 (0.6-1.4) mg/dl Est Cr Clr Drug Dosing 52.9 ml/min eGFR 63.42 BUN/Creatinine Ratio 17.5 (10-20) Glucose 165 H (70-99(Fasting)) mg/dl Calcium 9.0 (8.6-10.3) mg/dl Total Bilirubin 1.4 H (0.2-1.0) mg/dl AST 25 (13-39) U/L ALT 15 (7-52) U/L Alkaline Phosphatase 73 (34-104) U/L Troponin I High Sens 23.6 H 22.2 H (0-20) pg/ml B-Natriuretic Peptide > 4700 H (0-100) pg/ml Total Protein 6.4 (6.0-8.3) gm/dl Albumin 3.5 (3.4-5.0) gm/dl Globulin 2.9 (2.5-4.0) gm/dl Albumin/Globulin Ratio 1.2 (0.9-2) Imaging Data Attestation: I personally reviewed and interpreted this imaging study as follows: My Impression: Chest x-raythere is a moderate pleural effusion on the right. No pneumothorax. Radiologist's Impression: Chest X-Ray 07/13/24 12:12 XR chest 1V not portable HISTORY: 83 years-old Male Chest pain, nonspecific COMPARISON: 05/06/2024 TECHNIQUE: AP view chest FINDINGS: Cardiac silhouette is enlarged. Pulmonary vascular congestion. Layering pleural effusions, right greater than left appear moderate. The left pleural effusion is generally stable however the right pleural effusion has increased in size bibasilar consolidation. No pneumothorax. Bones appear grossly intact. IMPRESSION: 1. Cardiomegaly with pulmonary vascular congestion. 2. Moderate pleural effusions with bibasilar consolidation. The right pleural effusion has increased in size from the May 06, 2024 study. ACT 112: Negative or not required by law. The above report was generated using voice recognition software. It may contain grammatical, syntax or spelling errors. Electronically signed by: Zaheer Patel M.D. 07/13/2024 12:49 PM Chest CTA 07/13/24 13:37 EXAM: CT Angiography Chest With Intravenous Contrast INDICATION: Chest pain. TECHNIQUE: Axial computed tomographic angiography images of the chest with intravenous contrast. Sagittal and coronal reformatted images were created and reviewed. This CT exam was performed using one or more of the following dose reduction techniques: automated exposure control, adjustment of the mA and/or kV according to patient size, and/or use of iterative reconstruction technique. MIP reconstructed images were created and reviewed. CONTRAST: 120ml of Optiray 320 was administered intravenously. COMPARISON: 02/08/2024 FINDINGS: Pulmonary arteries: There is a new segmental pulmonary embolus to the left lower lobe. No saddle embolus. Aorta: No acute change noted. No thoracic aortic aneurysm or dissection. Lungs and pleural spaces: There is increased right and new left small to moderate bilateral pleural effusions. Minimal loculation in the right base and right basilar pleural thickening stable. No pneumothorax. Pulmonary edema noted. There is dependent atelectasis in the lower lobes. Stable scarring in the upper anterior left lung. Bilateral lower lobe airway thickening noted. No mass. Heart: There is increased asymmetrically left-sided marked cardiomegaly. There is a new small pericardial effusion. No evidence of RV dysfunction. Bones/joints: Degenerative changes noted throughout the spine. No acute osseous abnormality seen. Degenerative changes noted in the spine. Chronic right posterior rib deformity. No acute osseous abnormality. Soft tissues: No abnormality noted. Lymph nodes: No abnormality noted. No enlarged lymph nodes. IMPRESSION: 1. There is a new segmental pulmonary embolus to the left lower lobe. No saddle embolus. No evidence of right heart strain. 2. Worsening cardiomegaly, new small pericardial effusion and CHF with increased right and new left small to moderate pleural effusions. Criticalfindings discussed by phone with Dr. Gray at the time of dictation. ACT 112: Positive. There are findings on this exam that require communication between the performing entity and the patient following Patient Test Result Information Act ([place] ACT 112) guidelines. Electronically signed by Kenisha Villela 07-13-2024 2:47 PM ECG Data Attestation: I personally reviewed and interpreted this ECG as follows: Indication: + SOB/dyspnea Rate (beats per minute): 62 Rhythm: + sinus rhythm ECG Intervals/blocks: + First degree AV block and + Left bundle branch block ECG Caroline: + Left axis deviation ECG ST segments: + Normal ST segments ECG Findings: no PACs or no PVCs Comparison ECG Date: from (03/11/2024) Change: no significant change MDM Narrative This patient comes in as described above he has shortness of breath is worse when he lays flat he has a history of pleural effusion. It has been tapped once several weeks ago he is on a blood thinner and with Eliquis and took his Eliquis this morning at present he seems and looks well. He is not hypoxemic. EKG shows a baseline left bundle branch block and no ischemic changes chest x-ray was obtained and does show a pleural effusion moderate size on the right. Troponin is mildly elevated. BNP is significantly elevated. D-dimer is also elevated. I did order CT angiography of the chest to make sure there is not a PE. I reviewed Dr. Reed's note it sounds like this was likely related to CHF. His BNP is elevated and he does have some peripheral swelling. The radiologist called me and I talked to her at length. She tells me that the patient does have a PE on the left base. His shortness of breath is multifactorial. He does have underlying CHF with a pleural effusion but appears to have a PE as well. He has been taking his Eliquis 5 mg and took it today. He will likely need either Lovenox or heparin. I discussed the case at length with Dr. Simmons and the [facility] hospitalist team, they saw him in consultation and will admit him for further treatment and evaluation. 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 Discharge Plan Visit Data Chief Complaint: Shortness of Breath/Dyspnea Stated Complaint: SOB ED Provider: Dexter Gray Discharge Problem: Pulmonary embolism, Shortness of breath, Pleural effusion, CHF (congestive heart failure), Bilateral edema of lower extremity, 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
--- NOTE | 2024-07-13 12:50 | XRay Report ---
XR chest 1V not portable HISTORY: 83 years-old Male Chest pain, nonspecific COMPARISON: 05/06/2024 TECHNIQUE: AP view chest FINDINGS: Cardiac silhouette is enlarged. Pulmonary vascular congestion. Layering pleural effusions, right grea ter than left appear moderate. The left pleural effusion is generally stable however the right pleura l effusion has increased in size bibasilar consolidation. No pneumothorax. Bones appear grossly intac t. IMPRESSION: 1. Cardiomegaly with pulmonary vascular congestion. 2. Moderate pleural effusions with bibasilar consolidation. The right pleural effusion has increased in size from the May 06, 2024 study. ACT 112: Negative or not required by law. The above report was generated using voice recognition software. It may contain grammatical, syntax o r spelling errors. Electronically signed by: Zaheer Patel M.D. 07/13/2024 12:49 PM
[2024-07-13 12:55] LABS: Albumin Globulin Ratio 1.2 (0.9-2); Albumin Level 3.5 gm/dl (3.4-5.0); BUN Creatinine Ratio 17.5 (10-20); Bilirubin,Total 1.4 mg/dl (0.2-1.0); Creatinine Clr Calc Pharmacy 52.9 ml/min; Globulin 2.9 gm/dl (2.5-4.0); Potassium 4.1 mmol/L (3.5-5.1); Total Protein 6.4 gm/dl (6.0-8.3)
[2024-07-13 13:01] LABS: Troponin I High Sensitivity 23.6 pg/ml (0-20)
[2024-07-13 13:16] LABS: INR 1.2 (0.9-1.1); Partial Thromboplastin Time 27 Seconds (21-31); Prothrombin Time 12.6 Seconds (9.0-12.0)
[2024-07-13 13:23] LABS: D Dimer 1910 ug/L FEU (0-500)
[2024-07-13] MEDS: OPTIRAY 320 125ml IV ONE (14:30)
--- NOTE | 2024-07-13 14:48 | CT Scan Report ---
EXAM: CT Angiography Chest With Intravenous Contrast INDICATION: Chest pain. TECHNIQUE: Axial computed tomographic angiography images of the chest with intravenous contrast. Sagittal and coronal reformatted images were created and reviewed. This CT exam was performed using one or more of the following dose reduction techniques: automated exposure control, adjustment of the mA and/or kV according to patient size, and/or use of iterative reconstruction technique. MIP reconstructed images were created and reviewed. CONTRAST: 120ml of Optiray 320 was administered intravenously. COMPARISON: 02/08/2024 FINDINGS: Pulmonary arteries: There is a new segmental pulmonary embolus to the left lower lobe. No saddle embolus. Aorta: No acute change noted. No thoracic aortic aneurysm or dissection. Lungs and pleural spaces: There is increased right and new left small to moderate bilateral pleural effusions. Minimal loculation in the right base and right basilar pleural thickening stable. No pneumothorax. Pulmonary edema noted. There is dependent atelectasis in the lower lobes. Stable scarring in the upper anterior left lung. Bilateral lower lobe airway thickening noted. No mass. Heart: There is increased asymmetrically left-sided marked cardiomegaly. There is a new small pericardial effusion. No evidence of RV dysfunction. Bones/joints: Degenerative changes noted throughout the spine. No acute osseous abnormality seen. Degenerative changes noted in the spine. Chronic right posterior rib deformity. No acute osseous abnormality. Soft tissues: No abnormality noted. Lymph nodes: No abnormality noted. No enlarged lymph nodes. IMPRESSION: 1. There is a new segmental pulmonary embolus to the left lower lobe. No saddle embolus. No evidence of right heart strain. 2. Worsening cardiomegaly, new small pericardial effusion and CHF with increased right and new left small to moderate pleural effusions. Criticalfindings discussed by phone with Dr. Gray at the time of dictation. ACT 112: Positive. There are findings on this exam that require communication between the performing entity and the patient following Patient Test Result Information Act ([place] ACT 112) guidelines. Electronically signed by Kenisha Villela 07-13-2024 2:47 PM
--- NOTE | 2024-07-13 16:18 | History & Physical Report ---
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, <= 40%): Plan: No documented history of heart failure; presenting with SOB, lower extremity edema bilaterally; hypervolemic on exam today - Admit - Dry weight 175-180lbs + current weight 190lb - Daily weights standing - I+Os - Echo pending; most recent echo was in 2021- EF at that time was 35-40% - BNP >4700 - CXR Cardiomegaly + congestion; moderate pleural effusions with the R side increasing in size - CBC grossly WNL; CMP grossly WNL with bili 1.4 - Troponin 22.2; no chest pain, EKG not showing ischemic changes per my read; pending repeat troponin - EKG Sinus rhythm with 1st degree AV block, HR 62 - At home medications: metoprolol succinate 25mg nightly, furosemide 20mg daily, Entresto BID; continue - Furosemide 40mg IV x 1 - SCDs, promote leg elevation and frequent movement as tolerated - Consulted cardiology - BMP am Appreciate cardiology input + recs (2) Pleural effusion: Plan: Follows with pulmonology - H/o lung nodule from [facility] demonstrating melanoma (September 2019) and 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) - Thoracentesis of R lung 05/06/2024- pleural LDH 43, glucose 123, WBC 190, pH 7.55, yellow and cloudy in appearance- unable to locate further info from this sample - CXR and chest CTA 07/13 both revealing bilateral pleural effusions, with the right having increase in size since April 2024 - Consider pulmonology consult if no improvement w/ diuresis to manage #1; given Lasix 40 mg IV x 1 (3) Pericardial effusion: Plan: New on imaging 07/13 - No JVD, no muffled heart sounds - SBP 140s to 150s, DBP 90s to 110s - Pending echo (4) Pulmonary embolism: Plan: Worsening onset of SOB x 2 weeks, exam lung sounds slightly diminished in bases - Vitals: HR 60s, RR 19; 93 on room air - EKG sinus rhythm with first-degree AV block; HR 62 - D-dimer 1910 - CTA revealed new segmental pulmonary embolus in left lower lobe; no saddle emboli, and no heart strain - Lovenox 1 mg/kg SQ twice daily - H/o DVT of LLE (03/11/2024) 2 weeks after fibular fx; on Eliquis 5 mg twice daily - Pt taking Eliquis as prescribed, has not missed a dose; development of PE --> Tx failure (5) Hypertension: Plan: Hypertensive on exam today; did not take antihypertensives yet today - On metoprolol succinate 25 mg nightly (6) Benign prostatic hyperplasia without urinary obstruction: Plan: No current LUTS - Tamsulosin 0.4 mg daily, finasteride 5 mg daily Plan Dispo: Admit VTE prophylaxis: Treatment with Lovenox for PE Code: Full Admission and Anticipated Discharge Date Admission Date: 08/09/2024 History of Present Illness Chief Complaint: SOB Primary Care Provider: Forrest Slater DO Patient is an 83-year-old male presenting to ED for worsening shortness of breath. ED course: CBC grossly WNL; PT 12.6, INR 1.2; CMP- Cl 112, total bilirubin 1.4; D-dimer 1910; troponin 22.2; BNP > 4700.; CXR reveals cardiomegaly with pulmonary vascular congestion, moderate pleural effusion with bibasilar consolidation, right pleural effusion increased in size from May 06, 2024; ; chest CTA reveals new segmental pulmonary embolus to left lower lobe, no saddle embolus, no heart strain, worsening cardiomegaly with new small pericardial effusion and CHF with increased right and new left small to moderate pleural effusions.; EKG sinus rhythm with first-degree AV block, heart rate 62. Patient is an 83-year-old male with PMHx of ongoing pleural effusions, multiple pulmonary nodules, BPH, HTN, and history of DVT who presents today for shortness of breath. States that shortness of breath has been ongoing times months, however recently he noted that the shortness of breath has changed. Previously he knew the exact amount of steps he could walk before having to sit and rest, now he notes that walking up and down stairs does not bother him, but he has shortness of breath when carrying items. States that this is different for him, and was concerning. Feels like he is "straining to get air ", per patient. Initially shortness of breath started in April of this year, but within the past 2 weeks there has been increasing. Denies recent coughing. Does note swelling in his lower extremities, this is normal for him though, and he states that the left leg has more swelling than the right. Patient does have history of fracture in the LLE. Denies chest pain, palpitations, abdominal pain, N/V/D/C, dysuria, numbness/tingling, weakness, fevers or chills. Patient took all a.m. medications. Has not had this happen before, but has had episodes of shortness of breath that were concerning to him. Had a previous pleural effusion drained from immigration attorney. Notes that section of right lung was removed. Please see Dr. Simmons's attestation for adjustments/additions to treatment plan. Allergies Allergy/AdvReac Type Severity Reaction Status Date / Time No Known Allergies Allergy Verified 07/13/24 12:23 Home Medications Medication Instructions Recorded Confirmed Type atorvastatin 20 mg tablet 10 mg PO QPM 08/22/19 07/13/24 History sacubitril 49 mg-valsartan 51 mg 1 tab PO BID 06/19/22 07/13/24 History tablet (Entresto) apixaban 5 mg tablet (Eliquis) 5 mg PO BID #72 tabs 03/11/24 07/13/24 Rx furosemide 20 mg tablet (Lasix) 20 mg PO DAILY #90 tabs 05/27/24 07/13/24 Rx tamsulosin 0.4 mg capsule 0.4 mg PO DAILY #30 caps 06/10/24 07/13/24 Rx finasteride 5 mg tablet 5 mg PO DAILY #90 tabs 07/03/24 07/13/24 Rx levothyroxine 50 mcg tablet 50 mcg PO DAILY 07/13/24 07/13/24 History metoprolol succinate 25 mg capsule 25 mg PO PM 07/13/24 07/13/24 History sprinkle, ext. 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, <= 40%) Pulmonary embolism Pleural effusion (Acute) Shortness of breath (Acute) Venous thrombosis Pleural effusion Leg edema, left Closed fracture of left distal fibula Nephrolithiasis (Acute) Idiopathic polyneuropathy (Acute) Hypertension (Acute) Gross hematuria (Acute) Carpal tunnel syndrome of right wrist (Acute) Benign prostatic hyperplasia without urinary obstruction (Acute) Hx of melanoma of skin Multiple lung nodules on CT Lung nodules Encounter for pre-operative examination Elevated PSA Urinary retention Prostate cancer 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 PT NOT SURE Bladder stones CURRENT AND HX OF Enlarged prostate History of kidney stones Diabetes mellitus, type 2 History of melanoma Hypertension Hyperlipidemia History of ASCVD (arteriosclerotic cardiovascular disease) Surgical History Hx of cataract extraction LT. History of lung surgery Robotic Right Video-Assisted Thoracoscopy with Right Lower Lobectomy, and Mediastinal Lymphadenectomy Dr. Leon 11-12-19 History of anesthesia reaction post-op dysuria (WITH RIGHT LUNG SX) Status post lung surgery (09/17/19) Navigational bronchoscopy, Left wedge resection: 09/17/19: Grade 1 view, MAC#3, ETT 8.5 at [facility] History of tooth extraction History of lithotripsy History of cystoscopy w/ stone extraction History of right inguinal hernia repair History of hand surgery Rt - thumb, index finger - hardware present Status post dissection of cervical lymph nodes History of melanoma excision scalp 2016 Social History Smoking Status: Never smoker Second Hand Exposure: No; Do You Dip or Chew Tobacco: No; Hx Alcohol Use: No Hx Substance Use: No Preferred Language: Croatian Communication Ability: Effective Visual Impairment: No Limitations Quality Assurance Lead Required: No Beliefs That Will Affect Care: None marital status: Current Living Situation: Spouse current occupational status: retired Feels Safe at Home: Yes Safety Concerns: Feels Safe At This Time Diet: low carbohydrate Assistive Devices: Glasses Review of Systems Review of Systems: All systems reviewed & are unremarkable except as noted in Subjective Physical Exam Physical Exam: General: No acute distress Skin: Warm and dry Head: Normocephalic, atraumatic Eyes: PERRL, conjunctivae clear, sclera non-icteric ENT: External ear and ear canal without swelling; nose atraumatic; tongue normal appearance Neck: Supple, no LAD; no JVD Cardio: RRR, no M/G/R, S1 and S2 normal Resp: Chest wall symmetric, normal respiratory effort; lung sounds slightly diminished bilateral bases Abdomen: Soft, symmetric, nontender; no distention MSK: No deformities, full ROM throughout; pulses palpable and equal; 2+ pitting edema to level of knees bilaterally. Neuro: Awake, alert; Sensation intact bilaterally; CN intact Psych: Appropriate mood and affect; good judgement and insight. , Ceci, is present at time of exam. Results & Data Results & Data Vital Signs (Past 12 Hours) Vital Signs Temp Pulse Pulse Resp BP BP Pulse Ox 07/13/24 15:00 63 19 154/110 H 93 07/13/24 13:26 62 20 146/97 H 95 07/13/24 12:40 64 07/13/24 12:14 63 18 96 07/13/24 12:14 95 07/13/24 12:14 07/13/24 11:54 36.2 C L 65 20 152/100 H 95 O2 Del Method 07/13/24 15:00 Room Air 07/13/24 13:26 Room Air 07/13/24 12:40 07/13/24 12:14 Room Air 07/13/24 12:14 Room Air 07/13/24 12:14 Room Air 07/13/24 11:54 Room Air Laboratory Results 07/13/24 07/13/24 14:04 12:19 WBC 5.93 RBC 5.12 Hgb 16.1 Hct 48.1 MCV 93.9 MCH 31.4 MCHC 33.5 RDW Std Deviation 51.9 H RDW Coeff of [place] 15.0 H Plt Count 161 MPV 10.5 Immature Gran % (Auto) 0.2 Neut % (Auto) 67.2 Lymph % (Auto) 23.1 [place] % (Auto) 7.1 Eos % (Auto) 1.9 Baso % (Auto) 0.5 Neut # (Auto) 3.99 Lymph # (Auto) 1.37 [place] # (Auto) 0.42 Eos # (Auto) 0.11 Baso # (Auto) 0.03 Immature Gran # (Auto) 0.01 PT 12.6 H INR 1.2 H APTT 27 PTT Ratio 1.0 D-Dimer 1910 H* Sodium 144 Potassium 4.1 Chloride 112 H Carbon Dioxide 25 Anion Gap 7 BUN 20 Creatinine 1.14 Est Cr Clr Drug Dosing 52.9 eGFR 63.42 BUN/Creatinine Ratio 17.5 Glucose 165 H Calcium 9.0 Total Bilirubin 1.4 H AST 25 ALT 15 Alkaline Phosphatase 73 Troponin I High Sens 22.2 H 23.6 H B-Natriuretic Peptide > 4700 H Total Protein 6.4 Albumin 3.5 Globulin 2.9 Albumin/Globulin Ratio 1.2 Diagnostic Findings Chest X-Ray 07/13/24 12:12 XR chest 1V not portable HISTORY: 83 years-old Male Chest pain, nonspecific COMPARISON: 05/06/2024 TECHNIQUE: AP view chest FINDINGS: Cardiac silhouette is enlarged. Pulmonary vascular congestion. Layering pleural effusions, right greater than left appear moderate. The left pleural effusion is generally stable however the right pleural effusion has increased in size bibasilar consolidation. No pneumothorax. Bones appear grossly intact. IMPRESSION: 1. Cardiomegaly with pulmonary vascular congestion. 2. Moderate pleural effusions with bibasilar consolidation. The right pleural effusion has increased in size from the May 06, 2024 study. ACT 112: Negative or not required by law. The above report was generated using voice recognition software. It may contain grammatical, syntax or spelling errors. Electronically signed by: Zaheer Patel M.D. 07/13/2024 12:49 PM Chest CTA 07/13/24 13:37 EXAM: CT Angiography Chest With Intravenous Contrast INDICATION: Chest pain. TECHNIQUE: Axial computed tomographic angiography images of the chest with intravenous contrast. Sagittal and coronal reformatted images were created and reviewed. This CT exam was performed using one or more of the following dose reduction techniques: automated exposure control, adjustment of the mA and/or kV according to patient size, and/or use of iterative reconstruction technique. MIP reconstructed images were created and reviewed. CONTRAST: 120ml of Optiray 320 was administered intravenously. COMPARISON: 02/08/2024 FINDINGS: Pulmonary arteries: There is a new segmental pulmonary embolus to the left lower lobe. No saddle embolus. Aorta: No acute change noted. No thoracic aortic aneurysm or dissection. Lungs and pleural spaces: There is increased right and new left small to moderate bilateral pleural effusions. Minimal loculation in the right base and right basilar pleural thickening stable. No pneumothorax. Pulmonary edema noted. There is dependent atelectasis in the lower lobes. Stable scarring in the upper anterior left lung. Bilateral lower lobe airway thickening noted. No mass. Heart: There is increased asymmetrically left-sided marked cardiomegaly. There is a new small pericardial effusion. No evidence of RV dysfunction. Bones/joints: Degenerative changes noted throughout the spine. No acute osseous abnormality seen. Degenerative changes noted in the spine. Chronic right posterior rib deformity. No acute osseous abnormality. Soft tissues: No abnormality noted. Lymph nodes: No abnormality noted. No enlarged lymph nodes. IMPRESSION: 1. There is a new segmental pulmonary embolus to the left lower lobe. No saddle embolus. No evidence of right heart strain. 2. Worsening cardiomegaly, new small pericardial effusion and CHF with increased right and new left small to moderate pleural effusions. Criticalfindings discussed by phone with Dr. Gray at the time of dictation. ACT 112: Positive. There are findings on this exam that require communication between the performing entity and the patient following Patient Test Result Information Act ([place] ACT 112) guidelines. Electronically signed by Kenisha Villela 07-13-2024 2:47 PM ECG Additional Comments: Sinus rhythm with first-degree AV block, LAD, LBBB 62 bpm, ND 250, QRS 168, QT/QTc 514/521 Code Status & VTE Plan Code Status Full VTE Prophylaxis Plan VTE Prophylaxis will be ordered: Yes Supervising Physician Co-Signing Physician Notes I personally saw and examined the patient. I independently reviewed the labs, EKG, imaging, problem list, medication list, past medical history and family history. I verified all kaufman points and agree with Nathaly Jenkins PA-C with the following exceptions and/or additions: 83 year old male presents to the ER with shortness of breath ongoing for months with some improvement with thoracentesis but much worse the last week. Significant orthopnea. No chest pain. O/E HS RRR, no murmurs, Chest Bibasal crackles, Abdo SNT, A/P Acute on chronic heart failure with reduced ejection fraction - Lasix 40mg IV BID, strict I&Os, daily weight, severely reduced LVEF, B lines and pleural effusion on POCUS US (pericardial effusion does not appear to be large) - consult cardiology, TTE Pulmonary embolism - Eliquis failure, start Lovenox although suspect his major issue with shortness of breath is CHF as above PG Care Time/CCT Total # of Minutes Spent Total Time Spent with Patient: Total time spent is greater than 50% in coordination of care (as documented) at patient's floor/unit and/or counseling patient: Coding Level of Care Code 10197 INT INP/OBS CARE 3/75MIN Diagnoses 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
[2024-07-13] MEDS: FUROSEMIDE 40 MG/4 ML VIAL IV ONE (16:32)
--- NOTE | 2024-07-13 17:41 | Electrocardiogram Report ---
Test Reason : Blood Pressure : */* mmHG Vent. Rate : 62 BPM Atrial Rate : 62 BPM P-R Int : 250 ms QRS Dur : 168 ms QT Int : 514 ms P-R-T Axes : 27 -63 123 degrees QTcB Int : 521 ms Sinus rhythm with 1st degree A-V block Left axis deviation Left bundle branch block Abnormal ECG When compared with ECG of 11-Mar-2024 15:22, Fusion complexes are no longer Present Premature ventricular complexes are no longer Present Confirmed by Caroline Rucker ([place]) on 07/13/2024 5:41:18 PM Referred By: Confirmed By: Caroline Rucker
[2024-07-13] MEDS: METOPROLOL SUCC 25MG EXT REL TAB PO SCH (20:58)
[2024-07-13] MEDS: VALSARTAN/SACUBITRIL 51/49 MG TAB PO SCH (20:58)
[2024-07-13] MEDS: ATORVASTATIN 10 MG TAB PO SCH (20:59)
[2024-07-13] MEDS: ENOXAPARIN 100 MG/1ML SYR SQ SCH (20:59)
[2024-07-13] MEDS ORDERED: ENOXAPARIN 1 MG/KG SC SCH (21:00)
[2024-07-14] MEDS: LEVOTHYROXINE SODIUM 50 MCG TABLET PO SCH (05:29)
[2024-07-14 06:06] LABS: Basophils # (auto) 0.04 K/uL (0.00-0.20); Basophils % (auto) 0.8 %; Eosinophils # (auto) 0.13 K/uL (0.00-0.50); Eosinophils % (auto) 2.6 %; Hematocrit (blood only) 46.6 % (42.0-52.0); Hemoglobin 15.6 g/dl (14.0-18.0); Immature Granulocytes # (auto) 0.01 K/uL (0.01-0.20); Immature Granulocytes % (auto) 0.2 %; Lymphocytes # (auto) 1.58 K/uL (1.20-3.40); Lymphocytes % (auto) 31.8 %; Mean Corpuscular Hemoglobin 31.3 pg (25.0-34.0); Mean Corpuscular Hgb Conc 33.5 g/dL (32.0-36.0); Mean Corpuscular Volume 93.4 fL (80.0-100.0); Mean Platelet Volume 10.5 fL (9.4-12.4); Neutrophils # (auto) 2.81 K/uL (1.40-6.50); Neutrophils % (auto) 56.6 %; Platelet Count 162 K/uL (130-400); RDW Coefficient of Variation 15.2 % (11.5-14.5); RDW Standard Deviation 51.8 fL (36.4-46.3); Red Blood Count 4.99 M/uL (4.70-6.10); White Blood Count 4.97 K/ul (4.8-10.8)
[2024-07-14 06:19] LABS: BUN Creatinine Ratio 15.4 (10-20); Calcium 8.8 mg/dl (8.6-10.3); Creatinine Clr Calc Pharmacy 51.6 ml/min
[2024-07-14 06:34] LABS: Thyroid Stimulating Hormone 3.195 uIu/ml (0.300-4.500)
[2024-07-14] MEDS: FINASTERIDE 5 MG TAB PO SCH (08:42)
[2024-07-14] MEDS: FUROSEMIDE 40 MG/4 ML VIAL IV SCH (08:42)
[2024-07-14] MEDS: TAMSULOSIN HCL 0.4 MG CAP PO SCH (08:42)
--- NOTE | 2024-07-14 09:12 | Cardiology Consultation ---
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 Machuca's echo unfortunately shows a reduction in his EF less than 15 % with a large pericardial effusion vs overlay of his pleural effusion. With his history of metastatic melanoma, we would recommend avoiding pericardiocentesis however a thoracentesis may be warranted to rule out malignancy. 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 When he has been a little bit further diuresed, we can start him on Entresto. He appears volume overloaded and has appropriately been placed on IV furosemide bid. I would push diuretics until his creatinine bumps. He is a candidate for BiV/ICD which would improve his EF. He has declined in the past but we may want to revisit the recommendation given that he has had further reduction in his EF. Supervising Physician Co-Signing Physician Notes I have concerns with anticoagulation given the pericardial effusion if this is metastatic disease, it could worsen and compromise further his cardiac si tuation. Consideration could be given to a diagnostic pericardiocentesis to eval the source of the effusion. Would also be extremely cautious with diuresis given the RV size is small and this could also cause hemodynamic compromise. History of Present Illness Attending Physician: Luis Eduardo Olson MD History of Present Illness Mr. Machuca was admitted yesterday for worsening dyspnea secondary to new PE and systolic heart failure. Today he feels pretty well overall. He is not short of breath. He is not having chest pain. He is maintaining sinus rhythm on the monitor. Allergies Allergy/AdvReac Type Severity Reaction Status Date / Time No Known Allergies Allergy Verified 07/13/24 12:23 Home Medications Medication Instructions Recorded Confirmed Type atorvastatin 20 mg tablet 10 mg PO QPM 08/22/19 07/13/24 History sacubitril 49 mg-valsartan 51 mg 1 tab PO BID 06/19/22 07/13/24 History tablet (Entresto) apixaban 5 mg tablet (Eliquis) 5 mg PO BID #72 tabs 03/11/24 07/13/24 Rx furosemide 20 mg tablet (Lasix) 20 mg PO DAILY #90 tabs 05/27/24 07/13/24 Rx tamsulosin 0.4 mg capsule 0.4 mg PO DAILY #30 caps 06/10/24 07/13/24 Rx finasteride 5 mg tablet 5 mg PO DAILY #90 tabs 07/03/24 07/13/24 Rx levothyroxine 50 mcg tablet 50 mcg PO DAILY 07/13/24 07/13/24 History metoprolol succinate 25 mg capsule 25 mg PO PM 07/13/24 07/13/24 History sprinkle, ext. release 24 hr Patient History Medical History Ejection fraction < 50% PER PT, DR OTT RECOMMENDING HEART CATH PRIOR TO UPCOMING CATARACT SX Heart problem HEART NOT PUMPING SUFFICIENTLY PER PT Hypothyroid ? PT NOT SURE Bladder stones CURRENT AND HX OF Enlarged prostate History of kidney stones Diabetes mellitus, type 2 History of melanoma Hypertension Hyperlipidemia History of ASCVD (arteriosclerotic cardiovascular disease) Surgical History Hx of cataract extraction LT. History of lung surgery Robotic Right Video-Assisted Thoracoscopy with Right Lower Lobectomy, and Mediastinal Lymphadenectomy Dr. Leon 11-12-19 History of anesthesia reaction post-op dysuria (WITH RIGHT LUNG SX) Status post lung surgery (09/17/19) Navigational bronchoscopy, Left wedge resection: 09/17/19: Grade 1 view, MAC#3, ETT 8.5 at [facility] History of tooth extraction History of lithotripsy History of cystoscopy w/ stone extraction History of right inguinal hernia repair History of hand surgery Rt - thumb, index finger - hardware present Status post dissection of cervical lymph nodes History of melanoma excision scalp 2016 Social History Smoking Status: Never smoker Second Hand Exposure: No; Do You Dip or Chew Tobacco: No; Hx Alcohol Use: No Hx Substance Use: No Preferred Language: Bhutanese Communication Ability: Effective Visual Impairment: No Limitations 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: No Beliefs That Will Affect Care: None marital status: Current Living Situation: Spouse current occupational status: retired Feels Safe at Home: Yes Safety Concerns: Feels Safe At This Time Diet: low carbohydrate Assistive Devices: None Review of Systems Review of Systems: All systems reviewed & are unremarkable except as noted in HPI & below Physical Exam Constitutional: WD/WN, vitals as above Respiratory: normal respiratory effort, lungs clear to auscultation Cardiovascular: Rate/Rhythm: regular rate and regular rhythm Heart Sounds: no murmur Extremities: + edema Skin: no rashes, warm and dry Neurologic: moves all extremities and awake Psychiatric: A+Ox3, euthymic affect Results & Data Vital Signs (Past 12 Hours) Vital Signs Temp Pulse Pulse Resp BP BP Pulse Ox 07/14/24 08:02 36.4 C L 59 L 20 150/85 H 97 07/14/24 07:14 60 07/14/24 03:46 36.6 C 73 16 141/86 H 98 07/14/24 01:44 64 07/14/24 00:55 93 07/13/24 23:01 36.8 C 65 16 154/98 H 93 O2 Del Method O2 Flow Rate 07/14/24 08:02 Room Air 07/14/24 07:14 07/14/24 03:46 Nasal Cannula 2 07/14/24 01:44 07/14/24 00:55 Nasal Cannula 3 07/13/24 23:01 Room Air
--- NOTE | 2024-07-14 14:48 | Hospitalist Progress Note ---
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 Appreciate input Continue furosemide 40 mg IV twice daily BMP in a.m. Monitor daily weights, ins and outs Per cardiology, patient is a candidate for biventricular AICD but has declined in the past. This will be revisited since EF has further reduced (2) Pleural effusion: Plan: Follows with pulmonology - H/o lung nodule from [facility] demonstrating melanoma (September 2019) and 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) Patient has stage IV malignant melanoma - Thoracentesis of R lung 05/06/2024- pleural LDH 43, glucose 123, WBC 190, pH 7.55, yellow and cloudy in appearance. Pathology negative for malignancy - CXR and chest CTA 07/13 both revealing bilateral pleural effusions, with the right having increase in size since April 2024 Will diurese aggressively - Consider pulmonology consult if no improvement w/ diuresis to manage #1 (3) Pericardial effusion: Plan: New on imaging 07/13 Echo shows large pericardial effusion. There may also be early diastolic compromise of RV consistent with early tamponade physiology Patient is alert, oriented, hemodynamically stable with stable vital signs With his history of metastatic melanoma, cardiology recommends avoiding pericardiocentesis (4) Pulmonary embolism: Plan: Worsening onset of SOB x 2 weeks, exam lung sounds slightly diminished in bases - Vitals: HR 60s, RR 19; 93 on room air - EKG sinus rhythm with first-degree AV block; HR 62 - D-dimer 1909 - CTA revealed new segmental pulmonary embolus in left lower lobe; no saddle emboli, and no heart strain - Lovenox 1 mg/kg SQ twice daily - H/o DVT of LLE (03/11/2024) 2 weeks after fibular fx; on Eliquis 5 mg twice daily - Pt taking Eliquis as prescribed, has not missed a dose; development of PE --> this would be Eliquis failure Patient will need to be started on a different anticoagulant, most likely Coumadin (5) Hypertension: Plan: - On metoprolol succinate 25 mg nightly (6) Benign prostatic hyperplasia without urinary obstruction: Plan: No current LUTS - Tamsulosin 0.4 mg daily, finasteride 5 mg daily Plan VTE prophylaxis: Treatment with Lovenox for PE Code: Full Admission and Anticipated Discharge Date Admission Date: July 13, 2024 Subjective Patient says that he is feeling a little bit better compared to when he first came. His breathing is better. Review of Systems Review of Systems: All systems reviewed & are unremarkable except as noted in Subjective Physical Exam Physical Exam: General: Awake, conversant Heart: S1, S2/regular rate and rhythm, no murmur rubs or gallops Lungs: No breath sounds at the bases. Normal effort Abdomen: Soft/nontender/nondistended. No hepatosplenomegaly Extremities: No clubbing/cyanosis. 2+ pitting bilateral edema Behavior: Appropriate, cooperative Results & Data Results & Data Vital Signs (Past 12 Hours) Vital Signs Temp Pulse Pulse Resp BP BP Pulse Ox 07/14/24 14:07 62 07/14/24 11:39 36.4 C L 64 16 132/75 95 07/14/24 11:04 07/14/24 08:02 36.4 C L 59 L 20 150/85 H 97 07/14/24 07:14 60 07/14/24 03:46 36.6 C 73 16 141/86 H 98 O2 Del Method O2 Flow Rate 07/14/24 14:07 07/14/24 11:39 Room Air 07/14/24 11:04 Nasal Cannula 2 07/14/24 08:02 Room Air 07/14/24 07:14 07/14/24 03:46 Nasal Cannula 2 Laboratory Results Abnormal lab results 07/14/24 Range/Units 05:26 RDW Std Deviation 51.8 H (36.4-46.3) fL RDW Coeff of Vesta 15.2 H (11.5-14.5) % Sodium 146 H (136-145) mmol/L Chloride 113 H (98-107) mmol/L Glucose 116 H (70-99(Fasting)) mg/dl PG Care Time/CCT Total # of Minutes Spent Total Time Spent with Patient: Total time spent is greater than 50% in coordination of care (as documented) at patient's floor/unit and/or counseling patient: Coding Level of Care Code 96515 SUB INP/OBS CARE 2/35MIN Diagnoses 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
--- NOTE | 2024-07-15 08:36 | Cardiology Progress Note ---
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 Machuca's echo unfortunately shows a reduction in his EF less than 15 % with a large pericardial effusion vs overlay of his pleural effusion. With his history of metastatic melanoma, we would recommend avoiding pericardiocentesis however a thoracentesis may be warranted to rule out malignancy. 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 When he has been a little bit further diuresed, we can start him on Entresto. He appears volume overloaded and has appropriately been placed on IV furosemide bid. I would push diuretics until his creatinine bumps. He is a candidate for BiV/ICD which would improve his EF. He has declined in the past but we may want to revisit the recommendation given that he has had further reduction in his EF. Admission and Anticipated Discharge Date Admission Date: July 13, 2024 Supervising Physician Co-Signing Physician Notes I have concerns with anticoagulation given the pericardial effusion if this is metastatic disease, it could worsen and compromise further his cardiac situation. Consideration could be given to a diagnostic pericardiocentesis to eval the source of the effusion. Would also be extremely cautious with diuresis given the RV size is small and this could also cause hemodynamic compromise. Subjective Patient says that he is feeling a little bit better compared to when he first came. His breathing is better. Review of Systems Review of Systems: All systems reviewed & are unremarkable except as noted in HPI & below Physical Exam 2 Physical Exam: AAO x 3 in NAD Results & Data Vital Signs (Past 12 Hours) Vital Signs Temp Pulse Pulse Resp BP BP Pulse Ox 07/15/24 07:47 36.6 C 52 L 18 113/77 96 07/15/24 03:29 36.6 C 52 L 18 118/68 96 07/15/24 00:00 36.5 C 54 L 18 116/67 95 07/14/24 22:00 50 L O2 Del Method O2 Flow Rate 07/15/24 07:47 Nasal Cannula 07/15/24 03:29 Nasal Cannula 2 07/15/24 00:00 Nasal Cannula 2 07/14/24 22:00 Medications Administered Current Inpatient Medications Atorvastatin Calcium (Atorvastatin 10 Mg Tab) 10 mg PO QPM [facility]UNG Stop: 08/12/24 20:59 Last Admin: 07/14/24 20:11 Dose: 10 mg Enoxaparin Sodium (Enoxaparin 100 Mg/1ml Syr) 90 mg SQ Q12 [facility]; Protocol Stop: 08/12/24 20:59 Last Admin: 07/14/24 20:10 Dose: 90 mg Finasteride (Finasteride 5 Mg Tab) 5 mg PO DAILY [facility]G Stop: 08/13/24 08:59 Last Admin: 07/14/24 08:42 Dose: 5 mg Furosemide (Furosemide 40 Mg/4 Ml Vial) 40 mg IV [id number] [facility]G Stop: 08/13/24 08:59 Last Admin: 07/14/24 17:06 Dose: 40 mg Levothyroxine Sodium (Levothyroxine Sodium 50 Mcg Tablet) 50 mcg PO DAILYBB [facility]G Stop: 08/13/24 06:29 Last Admin: 07/15/24 06:39 Dose: 50 mcg Metoprolol Succinate (Metoprolol Succ 25mg Ext Rel Tab) 25 mg PO PM [facility]G Stop: 08/12/24 20:59 Last Admin: 07/14/24 20:11 Dose: 25 mg Sacubitril/Valsartan (Valsartan/Sacubitril 51/49 Mg Tab) 1 tab PO BID [facility]UNG Stop: 08/12/24 20:59 Last Admin: 07/14/24 20:11 Dose: 1 tab Tamsulosin HCl (Tamsulosin Hcl 0.4 Mg Cap) 0.4 mg PO DAILY [facility]UNG Stop: 08/13/24 08:59 Last Admin: 07/14/24 08:42 Dose: 0.4 mg
[2024-07-15 09:03] LABS: Hematocrit (blood only) 45.6 % (42.0-52.0); Hemoglobin 15.3 g/dl (14.0-18.0); Mean Corpuscular Hemoglobin 31.4 pg (25.0-34.0); Mean Corpuscular Hgb Conc 33.6 g/dL (32.0-36.0); Mean Corpuscular Volume 93.6 fL (80.0-100.0); Mean Platelet Volume 10.3 fL (9.4-12.4); Platelet Count 146 K/uL (130-400); RDW Coefficient of Variation 14.8 % (11.5-14.5); RDW Standard Deviation 51.4 fL (36.4-46.3); Red Blood Count 4.87 M/uL (4.70-6.10); White Blood Count 4.32 K/ul (4.8-10.8)
[2024-07-15 09:18] LABS: BUN Creatinine Ratio 18.6 (10-20); Calcium 8.8 mg/dl (8.6-10.3); Creatinine Clr Calc Pharmacy 53.4 ml/min; Potassium 3.8 mmol/L (3.5-5.1)
--- NOTE | 2024-07-15 12:09 | XRay Report ---
XR chest 1V portable CLINICAL HISTORY: eval pleural effusions post diuresis COMPARISON STUDY: Chest radiograph and chest CT July 13, 2024. FINDINGS: There is no pneumothorax. Moderate moderate bilateral pleural effusions have slightly impro agustin. Pulmonary edema has improved. Cardiomegaly is again noted. Bibasilar densities persist. IMPRESSION: 1. Interval improvement in pulmonary edema. 2. Small to moderate bilateral pleural effusions with associated bibasilar opacities. These effusions have mildly decreased in size. ACT 112: Negative or not required by law. Electronically signed by: Jackson Hurtado M.D. 07/15/2024 12:08 PM
--- NOTE | 2024-07-15 13:08 | Hospitalist Progress Note ---
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 Appreciate input Spoke to fast food shift supervisor on the phone 07/15 Hyper natremia worsening Reduced Lasix to 40 mg IV once daily Clinically improving with improving leg edema, improving pleural effusions bilaterally Cardiology plans to repeat echocardiogram today BMP in a.m. Monitor daily weights, ins and outs Per cardiology, patient is a candidate for biventricular AICD but has declined in the past. This will be revisited since EF has further reduced (2) Pleural effusion: Plan: Follows with pulmonology - H/o lung nodule from [place] demonstrating melanoma (September 2019) and 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) Patient has stage IV malignant melanoma - Thoracentesis of R lung 05/06/2024- pleural LDH 43, glucose 123, WBC 190, pH 7.55, yellow and cloudy in appearance. Pathology negative for malignancy - CXR and chest CTA 07/13 both revealing bilateral pleural effusions, with the right having increase in size since April 2024 Repeat chest x-ray today 07/15 shows improvement in the bilateral pleural effu sions Continue to diurese. Reduce the dose of Lasix from IV twice daily to IV once daily - Consider pulmonology consult for pleurocentesis if no improvement w/ diuresis to manage #1. But will hold off for now since there is improvement (3) Pericardial effusion: Plan: New on imaging 07/13 Echo shows large pericardial effusion. There may also be early diastolic compromise of RV consistent with early tamponade physiology Patient is alert, oriented, hemodynamically stable with stable vital signs Spoke to cardiology 07/15. They plan to repeat echocardiogram. Per Dr. Rucker, the pericardial effusion seen on the echocardiogram 07/14 may actually be the left pleural effusion. (4) Pulmonary embolism: Plan: Worsening onset of SOB x 2 weeks, exam lung sounds slightly diminished in bases - Vitals: HR 60s, RR 19; 93 on room air - EKG sinus rhythm with first-degree AV block; HR 62 - D-dimer 1909 - CTA revealed new segmental pulmonary embolus in left lower lobe; no saddle emboli, and no heart strain - Lovenox 1 mg/kg SQ twice daily - H/o DVT of LLE (03/11/2024) 2 weeks after fibular fx; on Eliquis 5 mg twice daily - Pt taking Eliquis as prescribed, has not missed a dose; development of PE --> this would be Eliquis failure Patient will need to be started on Coumadin. Will hold off starting Coumadin until we are sure no anticipated pleurocentesis or pericardiocentesis. Today's echocardiogram 07/15 will help us decide on procedures (5) Hypertension: Plan: - On metoprolol succinate 25 mg nightly (6) Benign prostatic hyperplasia without urinary obstruction: Plan: No current LUTS - Tamsulosin 0.4 mg daily, finasteride 5 mg daily Plan VTE prophylaxis: Treatment with Lovenox for PE Code: Full Admission and Anticipated Discharge Date Admission Date: July 13, 2024 Subjective Patient was seen and examined at 11:15 AM. He tells me that he is feeling well overall. He is making a lot of urine. His leg swelling is improving. He denies feeling dizzy or lightheaded. Review of Systems Review of Systems: All systems reviewed & are unremarkable except as noted in Subjective Physical Exam Physical Exam: General: Awake, conversant Heart: S1, S2/regular rate and rhythm, no murmur rubs or gallops Lungs: Breath sounds improved today at the bases. Few crackles heard bilaterally. Normal effort Abdomen: Soft/nontender/nondistended. No hepatosplenomegaly Extremities: No clubbing/cyanosis. 1+ pitting bilateral edema Behavior: Appropriate, cooperative Results & Data Results & Data Vital Signs (Past 12 Hours) Vital Signs Temp Pulse Pulse Resp BP BP Pulse Ox 07/15/24 12:18 36.6 C 53 L 16 129/73 93 07/15/24 10:44 36.7 C 56 L 18 130/65 95 07/15/24 07:47 36.6 C 52 L 18 113/77 96 07/15/24 05:42 52 L 07/15/24 03:29 36.6 C 52 L 18 118/68 96 O2 Del Method O2 Flow Rate 07/15/24 12:18 Room Air 07/15/24 10:44 Nasal Cannula 07/15/24 07:47 Nasal Cannula 07/15/24 05:42 07/15/24 03:29 Nasal Cannula 2 Laboratory Results Abnormal lab results 07/15/24 Range/Units 08:25 WBC 4.32 L (4.8-10.8) K/ul RDW Std Deviation 51.4 H (36.4-46.3) fL RDW Coeff of Vesta 14.8 H (11.5-14.5) % Sodium 147 H (136-145) mmol/L Chloride 111 H (98-107) mmol/L Diagnostic Findings Chest X-Ray 07/15/24 08:18 XR chest 1V portable CLINICAL HISTORY: eval pleural effusions post diuresis COMPARISON STUDY: Chest radiograph and chest CT July 13, 2024. FINDINGS: There is no pneumothorax. Moderate moderate bilateral pleural effusions have slightly improved. Pulmonary edema has improved. Cardiomegaly is again noted. Bibasilar densities persist. IMPRESSION: 1. Interval improvement in pulmonary edema. 2. Small to moderate bilateral pleural effusions with associated bibasilar opacities. These effusions have mildly decreased in size. ACT 112: Negative or not required by law. Electronically signed by: Jackson Hurtado M.D. 07/15/2024 12:08 PM PG Care Time/CCT Total # of Minutes Spent Total Time Spent with Patient: Total time spent is greater than 50% in coordination of care (as documented) at patient's floor/unit and/or counseling patient: Coding Level of Care Code 45882 SUB INP/OBS CARE 2/35MIN Diagnoses 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
[2024-07-16 06:57] LABS: Hematocrit (blood only) 43.4 % (42.0-52.0); Hemoglobin 14.5 g/dl (14.0-18.0); Mean Corpuscular Hemoglobin 31.4 pg (25.0-34.0); Mean Corpuscular Hgb Conc 33.4 g/dL (32.0-36.0); Mean Corpuscular Volume 93.9 fL (80.0-100.0); Mean Platelet Volume 10.3 fL (9.4-12.4); Platelet Count 135 K/uL (130-400); RDW Coefficient of Variation 14.7 % (11.5-14.5); RDW Standard Deviation 50.5 fL (36.4-46.3); Red Blood Count 4.62 M/uL (4.70-6.10); White Blood Count 3.92 K/ul (4.8-10.8)
[2024-07-16 07:10] LABS: BUN Creatinine Ratio 19.8 (10-20); Calcium 8.3 mg/dl (8.6-10.3); Creatinine Clr Calc Pharmacy 56.9 ml/min; Potassium 3.9 mmol/L (3.5-5.1)
[2024-07-16] MEDS: FUROSEMIDE 40 MG/4 ML VIAL IV SCH (08:46)
--- NOTE | 2024-07-16 10:13 | Cardiology Progress Note ---
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 Machuca's echo unfortunately shows a reduction in his EF less than 15 % ; repeat echo with mild-moderate effusion (what I previously thought was pericardial is actually the Leftpleural effusion)with a large pericardial effusion vs overlay of his pleural effusion. 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 When he has been a little bit further diuresed, we can start him on Entresto. He appears volume overloaded and has appropriately been placed on IV furosemide bid. I would push diuretics until his creatinine bumps. He is a candidate for BiV/ICD which would improve his EF. He has declined in the past but we may want to revisit the recommendation given that he has had further reduction in his EF. Entresto 24/26mg bid cont BB f/u with Dr. Contreras as OP in 2 weeks to reassess meds. Admission and Anticipated Discharge Date Admission Date: July 13, 2024 Subjective Reviewed repeat echo--pericardial effusion appears improved; He continues to feel well overall. No chest pain, no shortness of breath. No dizziness. EF remains severely decreased Review of Systems Review of Systems: All systems reviewed & are unremarkable except as noted in HPI & below Physical Exam Physical Exam: exam unchanged Results & Data Vital Signs (Past 12 Hours) Vital Signs Temp Pulse Pulse Resp BP BP Pulse Ox 07/16/24 09:36 07/16/24 08:11 36.7 C 58 L 18 131/82 95 07/16/24 08:10 36.5 C 86 18 102/71 94 07/16/24 05:35 55 L 07/16/24 00:33 36.8 C 78 20 123/78 97 O2 Del Method O2 Flow Rate 07/16/24 09:36 Room Air 07/16/24 08:11 Room Air 07/16/24 08:10 Room Air 07/16/24 05:35 07/16/24 00:33 Nasal Cannula 2 Laboratory Results Abnormal lab results 07/16/24 Range/Units 06:25 WBC 3.92 L (4.8-10.8) K/ul RBC 4.62 L (4.70-6.10) M/uL RDW Std Deviation 50.5 H (36.4-46.3) fL RDW Coeff of Vesta 14.7 H (11.5-14.5) % Sodium 147 H (136-145) mmol/L Chloride 111 H (98-107) mmol/L Glucose 110 H (70-99(Fasting)) mg/dl Calcium 8.3 L (8.6-10.3) mg/dl Medications Administered Current Inpatient Medications Atorvastatin Calcium (Atorvastatin 10 Mg Tab) 10 mg PO QPM [facility]G Stop: 08/12/24 20:59 Last Admin: 07/15/24 21:14 Dose: 10 mg Enoxaparin Sodium (Enoxaparin 100 Mg/1ml Syr) 90 mg SQ Q12 [facility]; Protocol Stop: 08/12/24 20:59 Last Admin: 07/16/24 08:46 Dose: 90 mg Finasteride (Finasteride 5 Mg Tab) 5 mg PO DAILY [facility]UNG Stop: 08/13/24 08:59 Last Admin: 07/16/24 08:46 Dose: 5 mg Furosemide (Furosemide 40 Mg/4 Ml Vial) 40 mg IV DAILY [facility]G Stop: 08/15/24 08:59 Last Admin: 07/16/24 08:46 Dose: 40 mg Levothyroxine Sodium (Levothyroxine Sodium 50 Mcg Tablet) 50 mcg PO DAILYBB [facility]G Stop: 08/13/24 06:29 Last Admin: 07/16/24 06:21 Dose: 50 mcg Metoprolol Succinate (Metoprolol Succ 25mg Ext Rel Tab) 25 mg PO PM [facility]UNG Stop: 08/12/24 20:59 Last Admin: 07/15/24 21:14 Dose: 25 mg Sacubitril/Valsartan (Valsartan/Sacubitril 51/49 Mg Tab) 1 tab PO BID [facility]UNG Stop: 08/12/24 20:59 Last Admin: 07/16/24 08:46 Dose: 1 tab Tamsulosin HCl (Tamsulosin Hcl 0.4 Mg Cap) 0.4 mg PO DAILY [facility]G Stop: 08/13/24 08:59 Last Admin: 07/16/24 08:46 Dose: 0.4 mg
--- NOTE | 2024-07-16 13:51 | Hospitalist Progress Note ---
Date of Service July 16, 2024 Assessment & Plan (1) Acute on chronic heart failure with reduced ejection fraction (HFrEF, <= 40%): Plan: Patient presented with shortness of breath, lower extremity edema bilaterally BNP greater than 4000 Echocardiogram 07/14 shows EF of less than 15% Cardiology on board. Appreciate input Spoke to lead technical architect on the phone 07/15 Hyper natremia worsening Continue Lasix to 40 mg IV once daily Clinically improving with improving leg edema, improving pleural effusions bilaterally Repeat echocardiogram showed an EF of less than 15% but less pericardial effusion which was assured. BMP in a.m. Monitor daily weights, ins and outs Per cardiology, patient is a candidate for biventricular AICD but has declined in the past. This will be revisited since EF has further reduced (2) Pleural effusion: Plan: Follows with pulmonology - H/o lung nodule from [facility] demonstrating melanoma (September 2019) and 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) Patient has stage IV malignant melanoma - Thoracentesis of R lung 05/06/2024- pleural LDH 43, glucose 123, WBC 190, pH 7.55, yellow and cloudy in appearance. Pathology negative for malignancy - CXR and chest CTA 07/13 both revealing bilateral pleural effusions, with the right having increase in size since April 2024 Repeat chest x-ray today 07/15 shows improvement in the bilateral pleural effusions Continue to diurese. - Consider pulmonology consult for pleurocentesis if no improvement w/ diuresis to manage #1. But will hold off for now since there is improvement (3) Pericardial effusion: Plan: New on imaging 07/13 Initial echo shows large pericardial effusion. There may also be early diastolic compromise of RV consistent with early tamponade physiology Patient is alert, oriented, hemodynamically stable with stable vital signs Spoke to cardiology 07/15. Repeat echo on 07/15 showed small to moderate pericardial effusion. The echolucent area posterior to the inferior wall likely represents left pleural effusion rather than pericardial effusion. This is assuring. The patient and his were informed (4) Pulmonary embolism: Plan: Worsening onset of SOB x 2 weeks, exam lung sounds slightly diminished in bases - Vitals: HR 60s, RR 19; 93 on room air - EKG sinus rhythm with first-degree AV block; HR 62 - D-dimer 1910 - CTA revealed new segmental pulmonary embolus in left lower lobe; no saddle emboli, and no heart strain - Lovenox 1 mg/kg SQ twice daily - H/o DVT of LLE (03/11/2024) 2 weeks after fibular fx; on Eliquis 5 mg twice daily - Pt taking Eliquis as prescribed, has not missed a dose; development of PE --> this would be Eliquis failure Patient will be started on Coumadin. No plans for pleurocentesis or pericardiocentesis. Check daily INR (5) Hypertension: Plan: - On metoprolol succinate 25 mg nightly (6) Benign prostatic hyperplasia without urinary obstruction: Plan: No current LUTS - Tamsulosin 0.4 mg daily, finasteride 5 mg daily Plan VTE prophylaxis: Treatment with Lovenox for PE. Started Coumadin as well Code: Full Admission and Anticipated Discharge Date Admission Date: July 13, 2024 Subjective Patient was seen and examined at 12:20 PM. He continues to feel well overall. No chest pain, no shortness of breath. No dizziness. Spoke to his on the phone Review of Systems Review of Systems: All systems reviewed & are unremarkable except as noted in Subjective Physical Exam Physical Exam: General: Awake, conversant Heart: S1, S2/regular rate and rhythm, no murmur rubs or gallops Lungs: Breath sounds improved today at the bases. Few crackles heard bilaterally. Normal effort Abdomen: Soft/nontender/nondistended. No hepatosplenomegaly Extremities: No clubbing/cyanosis. 1-2+ pitting bilateral edema Behavior: Appropriate, cooperative Results & Data Results & Data Vital Signs (Past 12 Hours) Vital Signs Temp Pulse Pulse Resp BP BP Pulse Ox 07/16/24 12:55 36.4 C L 62 18 114/70 94 07/16/24 09:36 07/16/24 08:11 36.7 C 58 L 18 131/82 95 07/16/24 08:10 36.5 C 86 18 102/71 94 07/16/24 05:35 55 L O2 Del Method 07/16/24 12:55 Room Air 07/16/24 09:36 Room Air 07/16/24 08:11 Room Air 07/16/24 08:10 Room Air 07/16/24 05:35 Laboratory Results Abnormal lab results 11/06/24 Range/Units 06:25 WBC 3.92 L (4.8-10.8) K/ul RBC 4.62 L (4.70-6.10) M/uL RDW Std Deviation 50.5 H (36.4-46.3) fL RDW Coeff of Vesta 14.7 H (11.5-14.5) % Sodium 147 H (136-145) mmol/L Chloride 111 H (98-107) mmol/L Glucose 110 H (70-99(Fasting)) mg/dl Calcium 8.3 L (8.6-10.3) mg/dl PG Care Time/CCT Total # of Minutes Spent Total Time Spent with Patient: Total time spent is greater than 50% in coordination of care (as documented) at patient's floor/unit and/or counseling patient: Coding Level of Care Code 64522 SUB INP/OBS CARE 2/35MIN Diagnoses 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
[2024-07-16] MEDS: WARFARIN SOD 6 MG TAB PO SCH (15:44)
[2024-07-16] MEDS: ENOXAPARIN 80 MG/0.8 ML SYR SQ SCH (20:42)
[2024-07-17 06:19] LABS: Hemoglobin 13.9 g/dl (14.0-18.0); Mean Corpuscular Hemoglobin 31.6 pg (25.0-34.0); Mean Corpuscular Hgb Conc 33.9 g/dL (32.0-36.0); Mean Corpuscular Volume 93.2 fL (80.0-100.0); Mean Platelet Volume 10.5 fL (9.4-12.4); Platelet Count 131 K/uL (130-400); RDW Coefficient of Variation 14.5 % (11.5-14.5); RDW Standard Deviation 49.9 fL (36.4-46.3); White Blood Count 4.76 K/ul (4.8-10.8)
[2024-07-17 06:33] LABS: BUN Creatinine Ratio 22.2 (10-20); Calcium 8.5 mg/dl (8.6-10.3); Potassium 4.1 mmol/L (3.5-5.1)
[2024-07-17 06:35] LABS: INR 1.1 (0.9-1.1); Prothrombin Time 12.2 Seconds (9.0-12.0)
--- NOTE | 2024-07-17 12:08 | Hospitalist Progress Note ---
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 Appreciate input Spoke to traffic expert on the phone 07/15 Hyper natremia worsening Continue Lasix to 40 mg IV once daily. Will give an extra dose of 20 mg IV x 1 Clinically improving with improving leg edema, improving pleural effusions bilaterally Repeat echocardiogram showed an EF of less than 15% but less pericardial effusion which was assuring. BMP in a.m. Monitor daily weights, ins and outs Per cardiology, patient is a candidate for biventricular AICD but has declined in the past. This will be revisited by cardiology outpatient since EF has further reduced (2) Pleural effusion: Plan: Follows with pulmonology - H/o lung nodule from [facility] demonstrating melanoma (September 2019) and 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) Patient has stage IV malignant melanoma - Thoracentesis of R lung 05/06/2024- pleural LDH 43, glucose 123, WBC 190, pH 7.55, yellow and cloudy in appearance. Pathology negative for malignancy - CXR and chest CTA 07/13 both revealing bilateral pleural effusions, with the right having increase in size since April 2024 Repeat chest x-ray today 07/15 shows improvement in the bilateral pleural effusions Continue to diurese. - Consider pulmonology consult for pleurocentesis if no improvement w/ diuresis to manage #1. But will hold off for now since there is improvement (3) Pericardial effusion: Plan: New on imaging 07/13 Initial echo shows large pericardial effusion. There may also be early diastolic compromise of RV consistent with early tamponade physiology Patient is alert, oriented, hemodynamically stable with stable vital signs Spoke to cardiology 07/15. Repeat echo on 07/15 showed small to moderate pericardial effusion. The echolucent area posterior to the inferior wall likely represents left pleural effusion rather than pericardial effusion. This is assuring. The patient and his were informed (4) Pulmonary embolism: Plan: Worsening onset of SOB x 2 weeks, exam lung sounds slightly diminished in bases - Vitals: HR 60s, RR 19; 93 on room air - EKG sinus rhythm with first-degree AV block; HR 62 - D-dimer 1909 - CTA revealed new segmental pulmonary embolus in left lower lobe; no saddle emboli, and no heart strain - Lovenox 1 mg/kg SQ twice daily - H/o DVT of LLE (03/11/2024) 2 weeks after fibular fx; on Eliquis 5 mg twice daily - Pt taking Eliquis as prescribed, has not missed a dose; development of PE --> this would be Eliquis failure Patient has been started on Coumadin. No plans for pleurocentesis or pericardiocentesis. Check daily INR. INR still low. Will give him a dose of 10 mg of Coumadin today PCP to follow-up for Coumadin monitoring (5) Hypertension: Plan: - On metoprolol succinate 25 mg nightly (6) Benign prostatic hyperplasia without urinary obstruction: Plan: No current LUTS - Tamsulosin 0.4 mg daily, finasteride 5 mg daily Plan VTE prophylaxis: Treatment with Lovenox for PE. Started Coumadin as well Code: Full Admission and Anticipated Discharge Date Admission Date: July 13, 2024 Subjective Patient was seen and examined at 11:20 AM. Patient feels well overall. No shortness of breath. But he still has significant leg swelling. Review of Systems Review of Systems: All systems reviewed & are unremarkable except as noted in Subjective Physical Exam Physical Exam: General: Awake, conversant Heart: S1, S2/regular rate and rhythm, no murmur rubs or gallops Lungs: Breath sounds improved at the bases. No crackles heard today. Normal effort Abdomen: Soft/nontender/nondistended. No hepatosplenomegaly Extremities: No clubbing/cyanosis. 1-2+ pitting bilateral edema Behavior: Appropriate, cooperative Results & Data Results & Data Vital Signs (Past 12 Hours) Vital Signs Temp Pulse Pulse Resp BP BP Pulse Ox 07/17/24 11:40 36.6 C 66 18 113/72 95 07/17/24 07:35 36.5 C 55 L 18 116/69 94 07/17/24 07:29 55 L 07/17/24 04:05 37.0 C 54 L 20 114/65 96 O2 Del Method 07/17/24 11:40 Room Air 07/17/24 07:35 Room Air 07/17/24 07:29 07/17/24 04:05 Room Air Laboratory Results Abnormal lab results 07/17/24 Range/Units 05:25 WBC 4.76 L (4.8-10.8) K/ul RBC 4.40 L (4.70-6.10) M/uL Hgb 13.9 L (14.0-18.0) g/dl Hct 41.0 L (42.0-52.0) % RDW Std Deviation 49.9 H (36.4-46.3) fL PT 12.2 H (9.0-12.0) Seconds Chloride 112 H (98-107) mmol/L BUN/Creatinine Ratio 22.2 H (10-20) Glucose 108 H (70-99(Fasting)) mg/dl Calcium 8.5 L (8.6-10.3) mg/dl PG Care Time/CCT Total # of Minutes Spent Total Time Spent with Patient: Total time spent is greater than 50% in coordination of care (as documented) at patient's floor/unit and/or counseling patient: Coding Level of Care Code 08039 SUB INP/OBS CARE 2/35MIN Diagnoses 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
[2024-07-17] MEDS: FUROSEMIDE INJ 20 MG/2 ML VIAL IV ONE (13:00)
[2024-07-17] MEDS: WARFARIN SOD 10 MG TAB PO SCH (18:31)
[2024-07-18 06:46] LABS: Hematocrit (blood only) 45.5 % (42.0-52.0); Hemoglobin 15.4 g/dl (14.0-18.0); Mean Corpuscular Hemoglobin 31.7 pg (25.0-34.0); Mean Corpuscular Hgb Conc 33.8 g/dL (32.0-36.0); Mean Corpuscular Volume 93.6 fL (80.0-100.0); Mean Platelet Volume 10.2 fL (9.4-12.4); Platelet Count 120 K/uL (130-400); RDW Coefficient of Variation 14.6 % (11.5-14.5); RDW Standard Deviation 50.4 fL (36.4-46.3); Red Blood Count 4.86 M/uL (4.70-6.10); White Blood Count 4.09 K/ul (4.8-10.8)
[2024-07-18 07:12] LABS: Calcium 8.6 mg/dl (8.6-10.3); Creatinine Clr Calc Pharmacy 60.4 ml/min; Potassium 3.8 mmol/L (3.5-5.1)
[2024-07-18 07:20] LABS: INR 1.5 (0.9-1.1); Prothrombin Time 15.7 Seconds (9.0-12.0)
--- NOTE | 2024-07-18 08:52 | Cardiology Progress Note ---
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 Non ischemic cardiomyopathy - Echocardiogram 07/16 with global hypokinesis and EF <15% (previously 35-40%) and non compaction. 1B. Cardiac catheterization 06/2022 at [facility] with 20- 30% proximal LAD lesion and 30% ostial D2 lesion; no RCA or circumflex disease, normal cardiac output and normal filling pressures. 2. Mild aortic stenosis. 3. Hypotension. 4. Diabetes mellitus type 2. 5. Status post right lung resection (a third of his lung) for what he describes as a benign lesion with one dose of chemotherapy post-procedure, but no radiation to his chest. 6. History of melanoma. 7. Pulmonary embolus - Eliquis failure Mr. Machuca's echo demonstrated a reduction in his EF to less than 15 % ; repeat echo with mild-moderate pericardial effusion. He also had pleural effusions on chest imaging. He is successfully diuresing and his weight is coming down. He is off of oxygen. He is walking the halls without dyspnea. I will repeat a CXR today. We had a long discussion about proceeding with a BiV/ICD device. Risks and benefits were reviewed. He thinks he would like to proceed but would like to discuss with EP first. Dr. Best will meet with him this evening to discuss but we will probably arrange the procedure as an outpatient once he is off of Lovenox and therapeutic on Coumadin. He will need to discharge with a Life Vest if device is scheduled outpatient. I discussed this recommendation with him as well. He was started on Entresto. I considered adding Jardiance but in reading his last urology note, he has significant obstruction from his prostate and a stone and I have concerns about his risk for UTIs. His bp does not allow for uptitration of the Entresto at this point or adding spironolactone though we could consider both if his blood pressure comes up a but after better perfusion with the BiV pacemaker. He continues metoprolol as well. I discussed the plan with both the hospitalist and EP. Admission and Anticipated Discharge Date Admission Date: July 13, 2024 Subjective Mr. Machuca feels less dyspneic. He is walking laps in the halls without sob or chest pain. His weight is down. Review of Systems Review of Systems: All systems reviewed & are unremarkable except as noted in HPI & below Physical Exam Constitutional: WD/WN, vitals as above Respiratory: normal respiratory effort, lungs clear to auscultation Cardiovascular: Rate/Rhythm: regular rate and regular rhythm Heart Sounds: no murmur Extremities: + edema Skin: no rashes, warm and dry Neurologic: moves all extremities and awake Psychiatric: A+Ox3, euthymic affect Results & Data Vital Signs (Past 12 Hours) Vital Signs Temp Pulse Pulse Resp BP Pulse Ox O2 Del Method 07/18/24 08:11 67 07/18/24 08:00 Room Air 07/18/24 07:51 36.5 C 58 L 16 115/71 95 Room Air 07/18/24 03:10 36.7 C 58 L 16 123/73 98 Nasal Cannula 07/17/24 22:31 36.8 C 55 L 16 103/60 96 Nasal Cannula 07/17/24 21:54 55 L O2 Flow Rate 07/18/24 08:11 07/18/24 08:00 07/18/24 07:51 07/18/24 03:10 3 07/17/24 22:31 3 07/17/24 21:54
--- NOTE | 2024-07-18 13:08 | XRay Report ---
XR chest 2V PA/lateral HISTORY: 83 years-old Male pleural effusion COMPARISON: 07/15/2024 TECHNIQUE: PA and lateral views of the chest FINDINGS: Cardiac silhouette is enlarged. Pulmonary vascular congestion with interstitial coarsening, mildly im proved. Persistent layering pleural effusions with bibasilar opacities which have also improved. IMPRESSION: 1. Cardiomegaly with persistent interstitial pulmonary edema, mildly improved. 2. There is decreased size of the layering pleural effusions with mildly decreased bibasilar opacitie s. ACT 112: Negative or not required by law. The above report was generated using voice recognition software. It may contain grammatical, syntax o r spelling errors. Electronically signed by: Zaheer Patel M.D. 07/18/2024 1:07 PM
--- NOTE | 2024-07-18 14:53 | Hospitalist Progress Note ---
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 Switch Lasix from IV to p.o. Will start 60 mg p.o. tomorrow Clinically improving with improving leg edema, improving pleural effusions bilaterally Repeat echocardiogram showed an EF of less than 15% but less pericardial effusion which was assuring. BMP in a.m. Repeat chest x-ray today 07/18 showed improvement Monitor daily weights, ins and outs Nonischemic cardiomyopathy Continue Entresto Adding spironolactone can be considered at a later time when his blood pressure is better after BiV placement Continue metoprolol Cardiology is speaking to the patient about biventricular ICD to be placed outpatient. He will be discharged with a LifeVest. regional maintenance manager working on arranging LifeVest (2) Pleural effusion: Plan: Follows with pulmonology - H/o lung nodule from [facility] demonstrating melanoma (September 2019) and 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) Patient has stage IV malignant melanoma - Thoracentesis of R lung 05/06/2024- pleural LDH 43, glucose 123, WBC 190, pH 7.55, yellow and cloudy in appearance. Pathology negative for malignancy - CXR and chest CTA 07/13 both revealing bilateral pleural effusions, with the right having increase in size since April 2024 Repeat chest x-ray 07/15 shows improvement in the bilateral pleural effusions Repeat chest x-ray 07/18 showed further improvement Continue to diurese. Since patient responded to diuresis, we did not do a thoracentesis during this hospital stay (3) Pericardial effusion: Plan: New on imaging 07/13 Initial echo shows large pericardial effusion. There may also be early diastolic compromise of RV consistent with early tamponade physiology Patient is alert, oriented, hemodynamically stable with stable vital signs Spoke to cardiology 07/15. Repeat echo on 07/15 showed small to moderate pericardial effusion. The echolucent area posterior to the inferior wall likely represents left pleural effusion rather than pericardial effusion. This is assuring. The patient and his were informed (4) Pulmonary embolism: Plan: Worsening onset of SOB x 2 weeks, exam lung sounds slightly diminished in bases - Vitals: HR 60s, RR 19; 93 on room air - EKG sinus rhythm with first-degree AV block; HR 62 - D-dimer 1909 - CTA revealed new segmental pulmonary embolus in left lower lobe; no saddle emboli, and no heart strain - Lovenox 1 mg/kg SQ twice daily - H/o DVT of LLE (03/11/2024) 2 weeks after fibular fx; on Eliquis 5 mg twice daily - Pt taking Eliquis as prescribed, has not missed a dose; development of PE --> this would be Eliquis failure Patient has been started on Coumadin. No plans for pleurocentesis or pericardiocentesis. Check daily INR. INR still low. PCP to follow-up for Coumadin monitoring. Communicated with Dr. Slater Patient will be trained to give himself Lovenox shots during this hospital stay (5) Hypertension: Plan: - On metoprolol succinate 25 mg nightly (6) Benign prostatic hyperplasia without urinary obstruction: Plan: No current LUTS - Tamsulosin 0.4 mg daily, finasteride 5 mg daily Plan VTE prophylaxis: Treatment with Lovenox for PE. Started Coumadin as well Code: Full Admission and Anticipated Discharge Date Admission Date: July 13, 2024 Subjective Patient was seen and examined at 10:30 AM. He continues to feel well overall. He is breathing well and is able to walk without feeling short of breath. He still has significant leg swelling. Review of Systems Review of Systems: All systems reviewed & are unremarkable except as noted in Subjective Physical Exam Physical Exam: General: Awake, conversant Heart: S1, S2/regular rate and rhythm, no murmur rubs or gallops Lungs: Breath sounds improved at the bases. No crackles heard today. Normal effort Abdomen: Soft/nontender/nondistended. No hepatosplenomegaly Extremities: No clubbing/cyanosis. 1-2+ pitting bilateral edema Behavior: Appropriate, cooperative Results & Data Results & Data Vital Signs (Past 12 Hours) Vital Signs Temp Pulse Pulse Resp BP BP Pulse Ox 07/18/24 14:50 68 07/18/24 11:36 36.7 C 52 L 18 101/64 97 07/18/24 08:11 67 07/18/24 08:00 07/18/24 07:51 36.5 C 58 L 16 115/71 95 07/18/24 03:10 36.7 C 58 L 16 123/73 98 O2 Del Method O2 Flow Rate 07/18/24 14:50 07/18/24 11:36 Room Air 07/18/24 08:11 07/18/24 08:00 Room Air 07/18/24 07:51 Room Air 07/18/24 03:10 Nasal Cannula 3 Laboratory Results Abnormal lab results 07/18/24 Range/Units 06:03 WBC 4.09 L (4.8-10.8) K/ul RDW Std Deviation 50.4 H (36.4-46.3) fL RDW Coeff of [place] 14.6 H (11.5-14.5) % Plt Count 120 L (130-400) K/uL PT 15.7 H (9.0-12.0) Seconds INR 1.5 H (0.9-1.1) BUN/Creatinine Ratio 22.0 H (10-20) Glucose 102 H (70-99(Fasting)) mg/dl Diagnostic Findings Chest X-Ray 07/18/24 09:40 XR chest 2V PA/lateral HISTORY: 83 years-old Male pleural effusion COMPARISON: 07/15/2024 TECHNIQUE: PA and lateral views of the chest FINDINGS: Cardiac silhouette is enlarged. Pulmonary vascular congestion with interstitial coarsening, mildly improved. Persistent layering pleural effusions with bibasilar opacities which have also improved. IMPRESSION: 1. Cardiomegaly with persistent interstitial pulmonary edema, mildly improved. 2. There is decreased size of the layering pleural effusions with mildly decreased bibasilar opacities. ACT 112: Negative or not required by law. The above report was generated using voice recognition software. It may contain grammatical, syntax or spelling errors. Electronically signed by: Zaheer Patel M.D. 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
--- NOTE | 2024-07-18 17:14 | Cardiology Consultation ---
Date of Consultation July 18, 2024 Assessment & Plan (1) Nonischemic cardiomyopathy: (2) Left bundle branch block: Plan 1. Cardiomyopathy: Patient was noted to have an element of midrange reduced ejection fraction based on echocardiogram obtained in 2021. An ischemic evalu ation at that time did not reveal any ischemic heart disease and an echocardiogram was suggestive of noncompaction. He was treated with medical therapy. He now appears to have significantly reduced LV systolic function with an ejection fraction less than 15%. Again, likely nonischemic. He had Mehlman to decompensated LV systolic failure at the time of admission which appears to have resolved. Based on his degree of LV dysfunction, he is in a category of patients who are generally advised to have an ICD as primary prevention against sudden cardiac . There is some debate regarding utility of an ICD in his demographic. Given his advanced age the likelihood of appropriate therapy or reduce mortality seems to be attenuated based on recent studies. However, guidelines still recommend an ICD in this situation. I did have an extensive discussion regarding the utility of a defibrillator, the procedure for implantation and the risks of not having a device implant with the patient and his . They seem interested in proceeding. 2. Left bundle branch block: The patient has a left bundle branch block. Given his degree of LV dysfunction and associated symptoms, he would be a good candidate for cardiac resynchronization therapy. If he elects to undergo implantation of a defibrillator we would implant a coronary sinus lead at the same time. The patient and do seem interested in proceeding with a prophylactic ICD and cardiac resynchronization therapy. Decisions were made using a shared decision-making process. He has not had any revascularization in the last 90 days, no myocardial infarction in the past 40 days. He is on guideline directed medical therapy and has [place] [employer] class III symptoms. He has a left bundle branch block at baseline and that anticipated longevity greater than 1 year. Based on these factors he was felt to be a good candidate for implantation of a biventricular ICD as primary prophylaxis against sudden cardiac . Once the patient has stable warfarin levels and is therapeutic we could make plans for device implant on an outpatient basis at his convenience. History of Present Illness Reason for Consultation: Cardiomyopathy, left bundle branch block Requesting Physician: Kevin Attending Physician: Luis Eduardo Olson MD History of Present Illness The patient is an 83-year-old gentleman with a history of noncompaction cardiomyopathy initially diagnosed in 2021. Patient also has a history of lung cancer and 2 lung resections. He has a history of DVT. He states that for 2 we eks leading up to his admission he had progressively worsening shortness of breath. He is accustomed to regular activity and noticed that it was more difficult to perform the activity due to shortness of breath. He also noted some mild lower extremity edema. No notable chest pain. No dizziness. No sense of palpitation. No history of syncope. The patient's initial hospital evaluation suggested an element of pulmonary vascular congestion and worsening pleural effusions. CT scan of the lungs also revealed evidence of a left pulmonary embolus. The patient had been on anticoagulant therapy with apixaban but this was subsequently changed to warfarin and heparin. The patient underwent a diuresis and his symptoms have improved. At the time of my interview the patient states that he is ambulatory around his room, his breathing has improved and he no longer has significant lower extremity edema. Allergies Allergy/AdvReac Type Severity Reaction Status Date / Time No Known Allergies Allergy Verified 07/13/24 12:23 Home Medications Medication Instructions Recorded Confirmed Type atorvastatin 20 mg tablet 10 mg PO QPM 08/22/19 07/13/24 History sacubitril 49 mg-valsartan 51 mg 1 tab PO BID 06/19/22 07/13/24 History tablet (Entresto) apixaban 5 mg tablet (Eliquis) 5 mg PO BID #72 tabs 03/11/24 07/13/24 Rx furosemide 20 mg tablet (Lasix) 20 mg PO DAILY #90 tabs 05/27/24 07/13/24 Rx tamsulosin 0.4 mg capsule 0.4 mg PO DAILY #30 caps 06/10/24 07/13/24 Rx finasteride 5 mg tablet 5 mg PO DAILY #90 tabs 07/03/24 07/13/24 Rx levothyroxine 50 mcg tablet 50 mcg PO DAILY 07/13/24 07/13/24 History metoprolol succinate 25 mg capsule 25 mg PO PM 07/13/24 07/13/24 History sprinkle, ext. release 24 hr Patient History Medical History Ejection fraction < 50% PER PT, DR OTT RECOMMENDING HEART CATH PRIOR TO UPCOMING CATARACT SX Heart problem HEART NOT PUMPING SUFFICIENTLY PER PT Hypothyroid ? PT NOT SURE Bladder stones CURRENT AND HX OF Enlarged prostate History of kidney stones Diabetes mellitus, type 2 History of melanoma Hypertension Hyperlipidemia History of ASCVD (arteriosclerotic cardiovascular disease) Surgical History Hx of cataract extraction LT. History of lung surgery Robotic Right Video-Assisted Thoracoscopy with Right Lower Lobectomy, and Mediastinal Lymphadenectomy Dr. Leon 11-12-19 History of anesthesia reaction post-op dysuria (WITH RIGHT LUNG SX) Status post lung surgery (09/17/19) Navigational bronchoscopy, Left wedge resection: 09/17/19: Grade 1 view, MAC#3, ETT 8.5 at [facility] History of tooth extraction History of lithotripsy History of cystoscopy w/ stone extraction History of right inguinal hernia repair History of hand surgery Rt - thumb, index finger - hardware present Status post dissection of cervical lymph nodes History of melanoma excision scalp 2016 Social History Smoking Status: Never smoker Second Hand Exposure: No; Do You Dip or Chew Tobacco: No; Hx Alcohol Use: No Hx Substance Use: No Preferred Language: Montenegrin Communication Ability: Effective Visual Impairment: No Limitations Blemish Remover Required: No Beliefs That Will Affect Care: None marital status: Current Living Situation: Spouse current occupational status: retired Feels Safe at Home: Yes Safety Concerns: Feels Safe At This Time Diet: low carbohydrate Assistive Devices: None Review of Systems Review of Systems: Per HPI Physical Exam Physical Exam: The patient is alert and oriented. Mood and affect appeared normal. He answered all questions appropriately. HEENT: Pupils are equal and reactive to light and accommodation. Extraocular movements are intact. The sclerae are anicteric. Neuro: Cranial nerves intact Lungs: Normal respiratory effort Cardiac: Heart demonstrates a regular rate and rhythm. Pulses: The patient has palpable radial pulses bilaterally that are equal in intensity Extremities: There was no evidence of hypoperfusion. There is no cyanosis or clubbing. There is no edema. Skin: I did not appreciate any rashes on examination today. Results & Data Vital Signs (Past 12 Hours) Vital Signs Temp Pulse Pulse Resp BP BP Pulse Ox 07/18/24 16:37 36.8 C 61 16 108/58 L 96 07/18/24 14:50 68 07/18/24 11:36 36.7 C 52 L 18 101/64 97 07/18/24 08:11 67 07/18/24 08:00 07/18/24 07:51 36.5 C 58 L 16 115/71 95 O2 Del Method 07/18/24 16:37 Room Air 07/18/24 14:50 07/18/24 11:36 Room Air 07/18/24 08:11 07/18/24 08:00 Room Air 07/18/24 07:51 Room Air Laboratory Results Abnormal Lab Results 07/20/24 05:30 WBC 4.88 RBC 4.46 L Hgb 14.1 Hct 42.0 MCV 94.2 MCH 31.6 MCHC 33.6 RDW Std Deviation 49.8 H RDW Coeff of [place] 14.4 Plt Count 110 L MPV 10.9 PT 39.3 H INR 4.1 H Sodium 140 Potassium 4.0 Chloride 107 Carbon Dioxide 28 Anion Gap 5 BUN 21 Creatinine 0.81 Est Cr Clr Drug Dosing 74.3 eGFR 86.94 BUN/Creatinine Ratio 25.9 H Glucose 119 H Calcium 8.2 L Diagnostic Findings Echocardiogram 07/14/2024: Severely reduced LV systolic function ejection fraction less than 15%. Global hypokinesis. Small pericardial effusion. Increased trabeculations consistent with noncompaction. Chest CTA obtained on the day of admission suggested left pulmonary embolus and bilateral pleural effusions. Small pericardial effusion. Chest x-ray obtained the day of admission revealed evidence of pulmonary vascular congestion and pleural effusions ECG Additional Comments: EKG demonstrates normal sinus rhythm with left bundle branch block. QRS duration 168ms. PG Care Time/CCT Total # of Minutes Spent Total Time Spent with Patient: Total time spent is greater than 50% in coordination of care (as documented) at patient's floor/unit and/or counseling patient: Coding Level of Care Code 26145 INT INP/OBS CARE 3/75MIN Diagnoses Nonischemic cardiomyopathy I42.8 Left bundle branch block I44.7
[2024-07-18] MEDS: WARFARIN SOD 6 MG TAB PO SCH (18:18)
[2024-07-19 07:28] LABS: Hematocrit (blood only) 44.2 % (42.0-52.0); Hemoglobin 14.9 g/dl (14.0-18.0); Mean Corpuscular Hemoglobin 31.8 pg (25.0-34.0); Mean Corpuscular Hgb Conc 33.7 g/dL (32.0-36.0); Mean Corpuscular Volume 94.2 fL (80.0-100.0); Platelet Count 113 K/uL (130-400); RDW Coefficient of Variation 14.5 % (11.5-14.5); Red Blood Count 4.69 M/uL (4.70-6.10); White Blood Count 4.72 K/ul (4.8-10.8)
[2024-07-19 07:41] LABS: INR 3.4 (0.9-1.1)
[2024-07-19 07:50] LABS: BUN Creatinine Ratio 23.4 (10-20); Calcium 8.5 mg/dl (8.6-10.3); Creatinine Clr Calc Pharmacy 64.2 ml/min
[2024-07-19] MEDS: FUROSEMIDE 20 MG TAB PO SCH (08:22)
--- NOTE | 2024-07-19 13:01 | Hospitalist Progress Note ---
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 Switch Lasix from IV to p.o. started 60 mg p.o. today 07/19 Clinically improving with improving leg edema, improving pleural effusions bilaterally Repeat echocardiogram showed an EF of less than 15% but less pericardial effusion which was assuring. BMP in a.m. Repeat chest x-ray today 07/18 showed improvement Monitor daily weights, ins and outs Nonischemic cardiomyopathy Continue Entresto Adding spironolactone can be considered at a later time when his blood pressure is better after BiV placement Continue metoprolol Cardiology is speaking to the patient about biventricular ICD to be placed outpatient. He will be discharged with a LifeVest. (2) Pleural effusion: Plan: Follows with pulmonology - H/o lung nodule from [facility] demonstrating melanoma (September 2019) and 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) Patient has stage IV malignant melanoma - Thoracentesis of R lung 05/06/2024- pleural LDH 43, glucose 123, WBC 190, pH 7.55, yellow and cloudy in appearance. Pathology negative for malignancy - CXR and chest CTA 07/13 both revealing bilateral pleural effusions, with the right having increase in size since April 2024 Repeat chest x-ray 07/15 shows improvement in the bilateral pleural effusions Repeat chest x-ray 07/18 showed further improvement Continue to diurese. Since patient responded to diuresis, we did not do a thoracentesis during this hospital stay (3) Pericardial effusion: Plan: New on imaging 07/13 Initial echo shows large pericardial effusion. There may also be early diastolic compromise of RV consistent with early tamponade physiology Patient is alert, oriented, hemodynamically stable with stable vital signs Spoke to cardiology 07/15. Repeat echo on 07/15 showed small to moderate pericardial effusion. The echolucent area posterior to the inferior wall likely represents left pleural effusion rather than pericardial effusion. This is assuring. The patient and his were informed (4) Pulmonary embolism: Plan: Worsening onset of SOB x 2 weeks, exam lung sounds slightly diminished in bases - Vitals: HR 60s, RR 19; 93 on room air - EKG sinus rhythm with first-degree AV block; HR 62 - D-dimer 1909 - CTA revealed new segmental pulmonary embolus in left lower lobe; no saddle emboli, and no heart strain - Lovenox 1 mg/kg SQ twice daily - H/o DVT of LLE (03/11/2024) 2 weeks after fibular fx; on Eliquis 5 mg twice daily - Pt was taking Eliquis as prescribed, has not missed a dose; development of PE --> this would be Eliquis failure Patient has been started on Coumadin. No plans for pleurocentesis or pericardiocentesis. Check daily INR. INR high today at 3.4. Hold Coumadin today. Discontinue Lovenox. PCP to follow-up for Coumadin monitoring. Communicated with Dr. Slater on 07/18 Patient will be trained to give himself Lovenox shots during this hospital stay (5) Hypertension: Plan: - On metoprolol succinate 25 mg nightly (6) Benign prostatic hyperplasia without urinary obstruction: Plan: No current LUTS - Tamsulosin 0.4 mg daily, finasteride 5 mg daily Plan VTE prophylaxis: Treatment with Lovenox for PE. Started Coumadin as well Code: Full Likely discharge tomorrow Admission and Anticipated Discharge Date Admission Date: July 13, 2024 Subjective Patient was seen and examined at 11:45 AM. He feels well in general. No bleeding. No chest pain or shortness of breath. Leg swelling is improving slowly. Review of Systems Review of Systems: All systems reviewed & are unremarkable except as noted in Subjective Physical Exam Physical Exam: General: Awake, conversant Heart: S1, S2/regular rate and rhythm, no murmur rubs or gallops Lungs: Breath sounds improved at the bases. No crackles heard today. Normal effort Abdomen: Soft/nontender/nondistended. No hepatosplenomegaly Extremities: No clubbing/cyanosis. 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
[2024-07-20 06:38] LABS: Hemoglobin 14.1 g/dl (14.0-18.0); Mean Corpuscular Hemoglobin 31.6 pg (25.0-34.0); Mean Corpuscular Hgb Conc 33.6 g/dL (32.0-36.0); Mean Corpuscular Volume 94.2 fL (80.0-100.0); Mean Platelet Volume 10.9 fL (9.4-12.4); Platelet Count 110 K/uL (130-400); RDW Coefficient of Variation 14.4 % (11.5-14.5); RDW Standard Deviation 49.8 fL (36.4-46.3); Red Blood Count 4.46 M/uL (4.70-6.10); White Blood Count 4.88 K/ul (4.8-10.8)
[2024-07-20 06:50] LABS: INR 4.1 (0.9-1.1); Prothrombin Time 39.3 Seconds (9.0-12.0)
[2024-07-20 07:06] LABS: BUN Creatinine Ratio 25.9 (10-20); Calcium 8.2 mg/dl (8.6-10.3); Creatinine Clr Calc Pharmacy 74.3 ml/min
--- NOTE | 2024-07-20 13:19 | Hospitalist Progress Note ---
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 Switch Lasix from IV to p.o. started 60 mg p.o. 07/19. Patient continues to diurese well on p.o. Lasix Clinically improving with improving leg edema, improving pleural effusions bilaterally Repeat echocardiogram showed an EF of less than 15% but less pericardial effusion which was assuring. Repeat chest x-ray 07/18 showed improvement Monitor daily weights, ins and outs Nonischemic cardiomyopathy Continue Entresto Adding spironolactone can be considered at a later time when his blood pressure is better after BiV placement Continue metoprolol Cardiology is speaking to the patient about biventricular ICD to be placed outpatient. He will be discharged with a LifeVest. LifeVest on currently (2) Pleural effusion: Plan: Follows with pulmonology - H/o lung nodule from [facility] demonstrating melanoma (September 2019) and 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) Patient has stage IV malignant melanoma - Thoracentesis of R lung 05/06/2024- pleural LDH 43, glucose 123, WBC 190, pH 7.55, yellow and cloudy in appearance. Pathology negative for malignancy - CXR and chest CTA 07/13 both revealing bilateral pleural effusions, with the right having increase in size since April 2024 Repeat chest x-ray 07/15 shows improvement in the bilateral pleural effusions Repeat chest x-ray 07/18 showed further improvement Continue to diurese. Since patient responded to diuresis, we did not do a thoracentesis during this hospital stay (3) Pericardial effusion: Plan: New on imaging 07/13 Initial echo shows large pericardial effusion. There may also be early diastolic compromise of RV consistent with early tamponade physiology Patient is alert, oriented, hemodynamically stable with stable vital signs Spoke to cardiology 07/15. Repeat echo on 07/15 showed small to moderate pericardial effusion. The echolucent area posterior to the inferior wall likely represents left pleural effusion rather than pericardial effusion. This is assuring. The patient and his were informed (4) Pulmonary embolism: Plan: Worsening onset of SOB x 2 weeks, exam lung sounds slightly diminished in bases - Vitals: HR 60s, RR 19; 93 on room air - EKG sinus rhythm with first-degree AV block; HR 62 - D-dimer 1909 - CTA revealed new segmental pulmonary embolus in left lower lobe; no saddle emboli, and no heart strain - Lovenox 1 mg/kg SQ twice daily was started - H/o DVT of LLE (03/11/2024) 2 weeks after fibular fx; on Eliquis 5 mg twice daily - Pt was taking Eliquis as prescribed, has not missed a dose; development of PE --> this would be Eliquis failure Patient has been started on Coumadin. No plans for pleurocentesis or pericardiocentesis. Checking daily INR. INR went up from 1.5-3.4 -4.1. Patient had hematuria last night. Coumadin and Lovenox both being held. Monitor INR and hematuria closely. PCP to follow-up for Coumadin monitoring. Communicated with Dr. Slater on 07/18 (5) Hypertension: Plan: - On metoprolol succinate 25 mg nightly (6) Benign prostatic hyperplasia without urinary obstruction: Plan: No current LUTS - Tamsulosin 0.4 mg daily, finasteride 5 mg daily Plan VTE prophylaxis: Treatment with Lovenox for PE. Started Coumadin as well Code: Full Likely discharge tomorrow 07/21 if no hematuria and INR close to being therapeutic Admission and Anticipated Discharge Date Admission Date: July 13, 2024 Subjective Patient was seen and examined at 10 AM. He says that he has some sniffles and he must of caught it from the hospital staff. He denies any shortness of breath. He had a few episodes of hematuria yesterday. His urine cleared today. However his INR is elevated at 4.1 today from 3.4 yesterday Review of Systems Review of Systems: All systems reviewed & are unremarkable except as noted in Subjective Physical Exam Physical Exam: General: Awake, conversant Heart: S1, S2/regular rate and rhythm, no murmur rubs or gallops. LifeVest on. Lungs: Breath sounds improved at the bases. No crackles heard today. Normal effort Abdomen: Soft/nontender/nondistended. No hepatosplenomegaly Extremities: No clubbing/cyanosis. 1-2+ pitting bilateral edema Behavior: Appropriate, cooperative Results & Data Results & Data Vital Signs (Past 12 Hours) Vital Signs Temp Pulse Pulse Resp BP BP Pulse Ox 07/20/24 12:24 36.9 C 63 16 104/64 94 07/20/24 08:34 37.0 C 77 16 106/63 95 07/20/24 07:17 07/20/24 07:10 78 07/20/24 04:03 36.8 C 64 18 118/69 98 O2 Del Method O2 Flow Rate 07/20/24 12:24 Room Air 07/20/24 08:34 Room Air 07/20/24 07:17 Room Air 07/20/24 07:10 07/20/24 04:03 Nasal Cannula 3 Laboratory Results Abnormal lab results 07/20/24 Range/Units 05:30 RBC 4.46 L (4.70-6.10) M/uL RDW Std Deviation 49.8 H (36.4-46.3) fL Plt Count 110 L (130-400) K/uL PT 39.3 H (9.0-12.0) Seconds INR 4.1 H (0.9-1.1) BUN/Creatinine Ratio 25.9 H (10-20) Glucose 119 H (70-99(Fasting)) mg/dl Calcium 8.2 L (8.6-10.3) mg/dl PG Care Time/CCT Total # of Minutes Spent Total Time Spent with Patient: Total time spent is greater than 50% in coordination of care (as documented) at patient's floor/unit and/or counseling patient: Coding Level of Care Code 29916 SUB INP/OBS CARE 2/35MIN Diagnoses 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
[2024-07-20 19:18] VITALS: RESP 18
[2024-07-21 06:31] LABS: Hematocrit (blood only) 42.8 % (42.0-52.0); Hemoglobin 14.3 g/dl (14.0-18.0); Mean Corpuscular Hemoglobin 31.4 pg (25.0-34.0); Mean Corpuscular Hgb Conc 33.4 g/dL (32.0-36.0); Mean Corpuscular Volume 93.9 fL (80.0-100.0); Mean Platelet Volume 10.8 fL (9.4-12.4); Platelet Count 123 K/uL (130-400); RDW Coefficient of Variation 14.5 % (11.5-14.5); RDW Standard Deviation 49.7 fL (36.4-46.3); Red Blood Count 4.56 M/uL (4.70-6.10); White Blood Count 5.89 K/ul (4.8-10.8)
[2024-07-21 06:40] LABS: BUN Creatinine Ratio 23.2 (10-20); Calcium 8.4 mg/dl (8.6-10.3); Creatinine Clr Calc Pharmacy 63.2 ml/min
[2024-07-21 06:55] LABS: INR 2.5 (0.9-1.1); Prothrombin Time 25.2 Seconds (9.0-12.0)
[2024-07-21 07:37] VITALS: PULSE 67; TEMP 99; O2SAT 92
--- NOTE | 2024-07-21 12:46 | Discharge Summary ---
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 His usual oral dosage has been increased to 40 mg daily at the time of discharge. Appreciate cardiology consultation and recommendations. AICD will be implanted at a later date. All other medications remain the same (2) Pleural effusion: Follows with pulmonology. H/o lung nodule from [facility] demonstrating melanoma (September 2019) and 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). Patient has stage IV malignant melanoma. No thoracentesis required this admission (3) Pericardial effusion: New on imaging 07/13. Subsequently resolved with treatment of CHF. No overt cardiac tamponade (4) Pulmonary embolism: Acute. This occurred while on Eliquis. He has been transition to Coumadin. INR will be measured twice weekly going forward. Transient hematuria has resolved (5) Hypertension: Stable. Treated with metoprolol succinate (6) Benign prostatic hyperplasia without urinary obstruction: Stable. Continue tamsulosin and finasteride Plan Home today, July 21, with home health services. He will continue to wear the LifeVest. AICD will be implanted at a later date in the near future. He has been transitioned to Coumadin 5 mg daily from the Eliquis and Lasix dosage has been increased. INR will be measured twice weekly going forward Admission HPI Per Admitting Provider Patient is an 83-year-old male presenting to ED for worsening shortness of breath. ED course: CBC grossly WNL; PT 12.6, INR 1.2; CMP- Cl 112, total bilirubin 1.4; D-dimer 1910; troponin 22.2; BNP > 4700.; CXR reveals cardiomegaly with pulmonary vascular congestion, moderate pleural effusion with bibasilar consolidation, right pleural effusion increased in size from May 06, 2024; ; chest CTA reveals new segmental pulmonary embolus to left lower lobe, no saddle embolus, no heart strain, worsening cardiomegaly with new small pericardial effusion and CHF with increased right and new left small to moderate pleural effusions.; EKG sinus rhythm with first-degree AV block, heart rate 62. Patient is an 83-year-old male with PMHx of ongoing pleural effusions, multiple pulmonary nodules, BPH, HTN, and history of DVT who presents today for shortness of breath. States that shortness of breath has been ongoing times months, however recently he noted that the shortness of breath has changed. Previously he knew the exact amount of steps he could walk before having to sit and rest, now he notes that walking up and down stairs does not bother him, but he has shortness of breath when carrying items. States that this is different for him, and was concerning. Feels like he is "straining to get air ", per patient. Initially shortness of breath started in April of this year, but within the past 2 weeks there has been increasing. Denies recent coughing. Does note swelling in his lower extremities, this is normal for him though, and he states that the left leg has more swelling than the right. Patient does have history of fracture in the LLE. Denies chest pain, palpitations, abdominal pain, N/V/D/C, dysuria, numbness/tingling, weakness, fevers or chills. Patient took all a.m. medications. Has not had this happen before, but has had episodes of shortness of breath that were concerning to him. 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 Notes that section of right lung was removed. Please see Dr. Simmons's attestation for adjustments/additions to treatment plan. Discharge Exam General-alert and oriented x3, no fever, no chills HEENT-head atraumatic and normocephalic, pupils equal and reactive to light, extraocular muscles intact Neck-no lymphadenopathy or thyromegaly, trachea midline Chest-clear to auscultation. No rales, wheezing or rhonchi Cardiac-irregular rhythm, controlled rate. Normal S1 and S2 Abdomen-normal bowel sounds, no hepatosplenomegaly Extremities-no cyanosis, clubbing, or edema Neuro-cranial nerves II through XII intact, motor and sensory function within normal limits, strength symmetrical, no focal deficits Psych-normal affect, normal mood Discharge Plan Discharge Items Patient Disposition: Home - Home Health Services Reason For Visit: PE, CHF EXACERBATION Discharge Diagnosis: Acute pulmonary embolism, Eliquis failure, acute on chronic systolic congestive heart failure, transient hematuria secondary to Coumadin therapy Activity: Resume your previous activity Non-emergency contact: Primary Care Provider and [employer] Call non-emergency contact if: you have any medication questions and your symptoms worsen Follow-up/Referrals: Forrest Slater, [Primary Care Provider] - Diet: Regular and Heart Healthy Addtl Attending Provider Instructions: Take Coumadin in the late afternoon. Get blood test every Sunday and going forward to monitor Coumadin levels. Results will be sent to Dr. Slater and Dr. Best. Lasix dosage has been increased. Prescriptions have been sent to [facility] pharmacy on [facility]. Wear LifeVest at all times until AICD has been implanted Pending Studies at Discharge: No Stand-Alone Forms: My [facility] [employer], Smoking Cessation Medications and DC Order Prescriptions: New warfarin 5 mg Tablet 5 mg PO DAILY@1600 Qty: 20 0RF furosemide 20 mg Tablet 60 mg PO QAM Qty: 30 0RF furosemide 40 mg tablet 40 mg PO DAILY Qty: 30 0RF Continued finasteride 5 mg tablet 5 mg PO DAILY Qty: 90 3RF atorvastatin 20 mg Tablet 10 mg PO QPM Entresto 49-51 mg Tablet 1 tab PO BID levothyroxine [L-Thyroxine] 50 mcg Tablet 50 mcg PO DAILY metoprolol succinate 25 mg Capsule,Sprinkle,Er 24hr 25 mg PO PM Discontinued furosemide [Lasix] 20 mg tablet 20 mg PO DAILY Qty: 90 0RF Eliquis 5 mg tablet 5 mg PO BID Qty: 72 0RF No Action tamsulosin 0.4 mg capsule 0.4 mg PO DAILY Qty: 30 11RF Discharge Orders: Discharge Order- CHF (Routine); Ordered 07/21/24 Ordered By: Noble Broderick Admission Data Admit Date/Time: 07/13/24 15:55 Attending Provider: Noble Broderick Admit Provider: Nathaly Jenkins Primary Care Provider: Forrest Slater Other Providers: Saúl Simmons; Kong Contreras; Mariam Brown; Caroline Rucker; Shailesh Best; [facility] Stay Data Consultations 07/13/24 15:08 ED Decision to Admit Stat 07/13/24 16:41 Consult Cardiology Routine 07/18/24 10:21 Consult Cardiology Routine Diagnostic Imagining Performed 07/13/24 13:37 CT angio chest PE protocol Stat Pending Results Patient Have Any Pending Studies at Discharge: No Discharge Instructions Given to Patient (Per Discharging Provider) Take Coumadin in the late afternoon. Get blood test every Sunday and going forward to monitor Coumadin levels. Results will be sent to Dr. Slater and Dr. Best. Lasix dosage has been increased. Prescriptions have been sent to [facility] pharmacy on [facility]. 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
[2024-07-21 13:20] VITALS: BP 122/77
--- NOTE | 2024-07-21 13:25 | Discharge Summary ---
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 His usual oral dosage has been increased to 40 mg daily at the time of discharge. Appreciate cardiology consultation and recommendations. AICD will be implanted at a later date. All other medications remain the same (2) Pleural effusion: Follows with pulmonology. H/o lung nodule from [facility] demonstrating melanoma (September 2019) and 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). Patient has stage IV malignant melanoma. No thoracentesis required this admission (3) Pericardial effusion: New on imaging 07/13. Subsequently resolved with treatment of CHF. No overt cardiac tamponade (4) Pulmonary embolism: Acute. This occurred while on Eliquis. He has been transition to Coumadin. INR will be measured twice weekly going forward. Transient hematuria has resolved (5) Hypertension: Stable. Treated with metoprolol succinate (6) Benign prostatic hyperplasia without urinary obstruction: Stable. Continue tamsulosin and finasteride Plan Home today, July 21, with home health services. He will continue to wear the LifeVest. AICD will be implanted at a later date in the near future. He has been transitioned to Coumadin 5 mg daily from the Eliquis and Lasix dosage has been increased. INR will be measured twice weekly going forward Admission HPI Per Admitting Provider Patient is an 83-year-old male presenting to ED for worsening shortness of breath. ED course: CBC grossly WNL; PT 12.6, INR 1.2; CMP- Cl 112, total bilirubin 1.4; D-dimer 1910; troponin 22.2; BNP > 4700.; CXR reveals cardiomegaly with pulmonary vascular congestion, moderate pleural effusion with bibasilar consolidation, right pleural effusion increased in size from May 06, 2024; ; chest CTA reveals new segmental pulmonary embolus to left lower lobe, no saddle embolus, no heart strain, worsening cardiomegaly with new small pericardial effusion and CHF with increased right and new left small to moderate pleural effusions.; EKG sinus rhythm with first-degree AV block, heart rate 62. Patient is an 83-year-old male with PMHx of ongoing pleural effusions, multiple pulmonary nodules, BPH, HTN, and history of DVT who presents today for shortness of breath. States that shortness of breath has been ongoing times months, however recently he noted that the shortness of breath has changed. Previously he knew the exact amount of steps he could walk before having to sit and rest, now he notes that walking up and down stairs does not bother him, but he has shortness of breath when carrying items. States that this is different for him, and was concerning. Feels like he is "straining to get air ", per patient. Initially shortness of breath started in April of this year, but within the past 2 weeks there has been increasing. Denies recent coughing. Does note swelling in his lower extremities, this is normal for him though, and he states that the left leg has more swelling than the right. Patient does have history of fracture in the LLE. Denies chest pain, palpitations, abdominal pain, N/V/D/C, dysuria, numbness/tingling, weakness, fevers or chills. Patient took all a.m. medications. Has not had this happen before, but has had episodes of shortness of breath that were concerning to him. 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 Notes that section of right lung was removed. Please see Dr. Simmons's attestation for adjustments/additions to treatment plan. Discharge Exam General-alert and oriented x3, no fever, no chills HEENT-head atraumatic and normocephalic, pupils equal and reactive to light, extraocular muscles intact Neck-no lymphadenopathy or thyromegaly, trachea midline Chest-clear to auscultation. No rales, wheezing or rhonchi Cardiac-irregular rhythm, controlled rate. Normal S1 and S2 Abdomen-normal bowel sounds, no hepatosplenomegaly Extremities-no cyanosis, clubbing, or edema Neuro-cranial nerves II through XII intact, motor and sensory function within normal limits, strength symmetrical, no focal deficits Psych-normal affect, normal mood Discharge Plan Discharge Items Patient Disposition: Home - Home Health Services Reason For Visit: PE, CHF EXACERBATION Discharge Diagnosis: Acute pulmonary embolism, Eliquis failure, acute on chronic systolic congestive heart failure, transient hematuria secondary to Coumadin therapy Activity: Resume your previous activity Non-emergency contact: Primary Care Provider and Imaging Specialist Call non-emergency contact if: you have any medication questions and your symptoms worsen Follow-up/Referrals: Forrest Slater, [Primary Care Provider] - 07/23/24 10:45 am Diet: Regular and Heart Healthy Addtl Attending Provider Instructions: Take Coumadin in the late afternoon. Get blood test every Sunday and going forward to monitor Coumadin levels. Results will be sent to Dr. Slater and Dr. Best. Lasix dosage has been increased. Prescriptions have been sent to [facility] pharmacy on [facility]. Wear LifeVest at all times until AICD has been implanted Pending Studies at Discharge: No Stand-Alone Forms: My [facility] [employer], Smoking Cessation Medications and DC Order Prescriptions: New warfarin 5 mg Tablet 5 mg PO DAILY@1600 Qty: 20 0RF furosemide 20 mg Tablet 60 mg PO QAM Qty: 30 0RF furosemide 40 mg tablet 40 mg PO DAILY Qty: 30 0RF Continued finasteride 5 mg tablet 5 mg PO DAILY Qty: 90 3RF atorvastatin 20 mg Tablet 10 mg PO QPM Entresto 49-51 mg Tablet 1 tab PO BID levothyroxine [L-Thyroxine] 50 mcg Tablet 50 mcg PO DAILY metoprolol succinate 25 mg Capsule,Sprinkle,Er 24hr 25 mg PO PM Discontinued furosemide [Lasix] 20 mg tablet 20 mg PO DAILY Qty: 90 0RF Eliquis 5 mg tablet 5 mg PO BID Qty: 72 0RF No Action tamsulosin 0.4 mg capsule 0.4 mg PO DAILY Qty: 30 11RF Discharge Orders: Discharge Order- CHF (Routine); Ordered 07/21/24 Ordered By: Noble Bolden/Other Patient Handouts: Warfarin Oral Tablet Admission Data Admit Date/Time: 07/13/24 15:55 Attending Provider: Noble Broderick Admit Provider: Nathaly Jenkins Primary Care Provider: Forrest Slater Other Providers: Saúl Simmons; Kong Contreras; Mariam Brown; Caroline Rucker; Shailesh Best; [facility] Other Interventions: Discharge Summary Assessment (RN) Last Done: 07/21/24 13:19 Hospital Stay Data Consultations 07/13/24 15:08 ED Decision to Admit Stat 07/13/24 16:41 Consult Cardiology Routine 07/18/24 10:21 Consult Cardiology Routine Diagnostic Imagining Performed 07/13/24 13:37 CT angio chest PE protocol Stat Pending Results Patient Have Any Pending Studies at Discharge: No Discharge Instructions Given to Patient (Per Discharging Provider) Take Coumadin in the late afternoon. Get blood test every Sunday and going forward to monitor Coumadin levels. Results will be sent to Dr. Slater and Dr. Best. Lasix dosage has been increased. Prescriptions have been sent to [facility] pharmacy on [facility]. 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
--- NOTE | 2024-07-21 13:47 | Discharge Summary ---
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 His usual oral dosage has been increased to 40 mg daily at the time of discharge. Appreciate cardiology consultation and recommendations. AICD will be implanted at a later date. All other medications remain the same (2) Pleural effusion: Follows with pulmonology. H/o lung nodule from [facility] demonstrating melanoma (September 2019) and 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). Patient has stage IV malignant melanoma. No thoracentesis required this admission (3) Pericardial effusion: New on imaging 07/13. Subsequently resolved with treatment of CHF. No overt cardiac tamponade (4) Pulmonary embolism: Acute. This occurred while on Eliquis. He has been transition to Coumadin. INR will be measured twice weekly going forward. Transient hematuria has resolved (5) Hypertension: Stable. Treated with metoprolol succinate (6) Benign prostatic hyperplasia without urinary obstruction: Stable. Continue tamsulosin and finasteride Plan Home today, July 21, with home health services. He will continue to wear the LifeVest. AICD will be implanted at a later date in the near future. He has been transitioned to Coumadin 5 mg daily from the Eliquis and Lasix dosage has been increased. INR will be measured twice weekly going forward Admission HPI Per Admitting Provider Patient is an 83-year-old male presenting to ED for worsening shortness of breath. ED course: CBC grossly WNL; PT 12.6, INR 1.2; CMP- Cl 112, total bilirubin 1.4; D-dimer 1910; troponin 22.2; BNP > 4700.; CXR reveals cardiomegaly with pulmonary vascular congestion, moderate pleural effusion with bibasilar consolidation, right pleural effusion increased in size from May 06, 2024; ; chest CTA reveals new segmental pulmonary embolus to left lower lobe, no saddle embolus, no heart strain, worsening cardiomegaly with new small pericardial effusion and CHF with increased right and new left small to moderate pleural effusions.; EKG sinus rhythm with first-degree AV block, heart rate 62. Patient is an 83-year-old male with PMHx of ongoing pleural effusions, multiple pulmonary nodules, BPH, HTN, and history of DVT who presents today for shortness of breath. States that shortness of breath has been ongoing times months, however recently he noted that the shortness of breath has changed. Previously he knew the exact amount of steps he could walk before having to sit and rest, now he notes that walking up and down stairs does not bother him, but he has shortness of breath when carrying items. States that this is different for him, and was concerning. Feels like he is "straining to get air ", per patient. Initially shortness of breath started in April of this year, but within the past 2 weeks there has been increasing. Denies recent coughing. Does note swelling in his lower extremities, this is normal for him though, and he states that the left leg has more swelling than the right. Patient does have history of fracture in the LLE. Denies chest pain, palpitations, abdominal pain, N/V/D/C, dysuria, numbness/tingling, weakness, fevers or chills. Patient took all a.m. medications. Has not had this happen before, but has had episodes of shortness of breath that were concerning to him. 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 Notes that section of right lung was removed. Please see Dr. Simmons's attestation for adjustments/additions to treatment plan. Discharge Exam General-alert and oriented x3, no fever, no chills HEENT-head atraumatic and normocephalic, pupils equal and reactive to light, extraocular muscles intact Neck-no lymphadenopathy or thyromegaly, trachea midline Chest-clear to auscultation. No rales, wheezing or rhonchi Cardiac-irregular rhythm, controlled rate. Normal S1 and S2 Abdomen-normal bowel sounds, no hepatosplenomegaly Extremities-no cyanosis, clubbing, or edema Neuro-cranial nerves II through XII intact, motor and sensory function within normal limits, strength symmetrical, no focal deficits Psych-normal affect, normal mood Discharge Plan Discharge Items Patient Disposition: Home - Self-Care Reason For Visit: PE, CHF EXACERBATION Discharge Diagnosis: Acute pulmonary embolism, Eliquis failure, acute on chronic systolic congestive heart failure, transient hematuria secondary to Coumadin therapy Activity: Resume your previous activity Non-emergency contact: Primary Care Provider and [employer] Call non-emergency contact if: you have any medication questions and your symptoms worsen Follow-up/Referrals: Forrest Slater, [Primary Care Provider] - 07/23/24 10:45 am Diet: Regular and Heart Healthy Addtl Attending Provider Instructions: Take Coumadin in the late afternoon. Get blood test every Sunday and going forward to monitor Coumadin levels. Results will be sent to Dr. Slater and Dr. Best. Lasix dosage has been increased. Prescriptions have been sent to [facility] pharmacy on [address]. Wear LifeVest at all times until AICD has been implanted Labs for PT and INR. Pending Studies at Discharge: No Stand-Alone Forms: My [facility] [employer], Smoking Cessation Medications and DC Order Prescriptions: New warfarin 5 mg Tablet 5 mg PO DAILY@1600 Qty: 20 0RF furosemide 40 mg tablet 40 mg PO DAILY Qty: 30 0RF Continued tamsulosin 0.4 mg capsule 0.4 mg PO DAILY Qty: 30 11RF finasteride 5 mg tablet 5 mg PO DAILY Qty: 90 3RF atorvastatin 20 mg Tablet 10 mg PO QPM Entresto 49-51 mg Tablet 1 tab PO BID levothyroxine [L-Thyroxine] 50 mcg Tablet 50 mcg PO DAILY metoprolol succinate 25 mg Capsule,Sprinkle,Er 24hr 25 mg PO PM Discontinued furosemide [Lasix] 20 mg tablet 20 mg PO DAILY Qty: 90 0RF Eliquis 5 mg tablet 5 mg PO BID Qty: 72 0RF Discharge Orders: Discharge Order- CHF (Routine); Ordered 07/21/24 Ordered By: Noble Bolden/Other Patient Handouts: Warfarin Oral Tablet Admission Data Admit Date/Time: 07/13/24 15:55 Attending Provider: Noble Broderick Admit Provider: Nathaly Jenkins Primary Care Provider: Forrest Slater Other Providers: Saúl Simmons; Kong Contreras; Mariam Brown; Caroline Rucker; Shailesh Best; [facility] Other Interventions: Discharge Summary Assessment (RN) Last Done: 07/21/24 13:19 Hospital Stay Data Consultations 07/13/24 15:08 ED Decision to Admit Stat 07/13/24 16:41 Consult Cardiology Routine 07/18/24 10:21 Consult Cardiology Routine Diagnostic Imagining Performed 07/13/24 13:37 CT angio chest PE protocol Stat Pending Results Patient Have Any Pending Studies at Discharge: No Discharge Instructions Given to Patient (Per Discharging Provider) Take Coumadin in the late afternoon. Get blood test every Sunday and going forward to monitor Coumadin levels. Results will be sent to Dr. Slater and Dr. Bets. Lasix dosage has been increased. [facility] [address]. Wear LifeVest at all times until AICD has been implanted Labs for PT and INR. 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
[2024-07-21] MEDS ORDERED: WARFARIN SOD 5 MG TAB PO SCH (16:00)
== END 2024-07-21 14:25 | disposition home or self-care (01) | DRG 291 ==
LOC: ED 11:42 → SUATTDRO 15:55 → 2N 15:55
DX: I44.7 Left bundle-branch block, unspecified; I31.39 Other pericardial effusion (noninflammatory); Z86.718 Personal history of other venous thrombosis and embolism; E87.0 Hyperosmolality and hypernatremia; E11.9 Type 2 diabetes mellitus without complications; I11.0 Hypertensive heart disease with heart failure; Z79.890 Hormone replacement therapy; Z85.820 Personal history of malignant melanoma of skin; I50.23 Acute on chronic systolic (congestive) heart failure; I26.99 Other pulmonary embolism without acute cor pulmonale; Z79.01 Long term (current) use of anticoagulants; E03.9 Hypothyroidism, unspecified; Z79.899 Other long term (current) drug therapy; E78.5 Hyperlipidemia, unspecified; N40.0 Benign prostatic hyperplasia without lower urinary tract symptoms; I25.10 Atherosclerotic heart disease of native coronary artery without angina pectoris; I42.8 Other cardiomyopathies

== ENCOUNTER 2024-08-14 06:56 | Observation (INO) ==
--- NOTE | 2024-08-14 07:49 | Pre Anesthesia Assessment ---
Date of Service August 14, 2024 Pre Sedation Assessment Vital Signs Pulse Resp BP Pulse Ox O2 Del Method 08/14/24 07:27 57 L 16 125/75 99 Room Air Cardiovascular + bradycardic Respiratory + respiratory effort normal Pre-Sedation Airway Assessment Smoking Status: Never smoker Hx Sleep Apnea: No Hx Difficult Intubation: No Short, Thick Neck: No Thyromental Distance: > or= 3.5 Finger Breadths Oral Cavity: + WNL Mallampati Class: I ASA: ASA3 NPO Status Date of Last Intake of Fluids: 08/14/24 Time of Last Intake of Fluids: 06:00 Date of Last Intake of Solid Food: 08/13/24 Time of Last Intake of Solid Foods: 21:00 Procedure Planning Contraindications for Sedation: none Current Medications Reviewed: Yes Notes The planned sedation has been discussed with the patient. Informed Consent was obtained. I have identified the patient, determined the appropriateness of sedation and have assessed the patient immediately prior to the procedure. All medicine(s) and interventions are by my order.
--- NOTE | 2024-08-14 07:49 | History & Physical Bridge Note ---
Date of Service August 14, 2024 History & Physical Bridge Note I have examined the patient, reviewed the History & Physical and in the interval since the performance of the History & Physical I have noted the following changes of clinical significance: no changes noted
[2024-08-14] MEDS: LIDOCAINE 1% LOCAL 20 ML VIAL ONE ×2 (08:39→08:41)
[2024-08-14] MEDS: VANCOMYCIN HCL 1000MG/20ML VIAL ONE ×2 (08:40→09:49)
[2024-08-14] MEDS: BUPIVACAINE 0.25% PF 30 ML VIAL ONE (08:40)
[2024-08-14] MEDS: WATER, STERILE FOR INJ 10 ML VIAL ONE ×2 (08:41→09:49)
[2024-08-14] MEDS: ceFAZolin 330 MG/ML 1 GM VIAL ONE (08:41)
[2024-08-14] MEDS: MIDAZOLAM HCL 5 MG/ML 1 ML VIAL ONE (09:48)
[2024-08-14] MEDS: fentaNYL citrate PF 100 MCG/2 ML VIAL ONE (09:49)
[2024-08-14] MEDS ORDERED: oxyCODONE HCL IR 5 MG TAB (IMMEDIATE RELEASE) PO PRN (10:02)
--- NOTE | 2024-08-14 10:02 | Electrophysiology Report ---
Date of Service August 14, 2024 Electrophysiology Procedure Electrophysiology Procedure Report Procedure performed: Implantation of biventricular ICD Staff rn intensive care unit: Shailesh Best MD Indication: The patient is an 83-year-old gentleman with history of nonischemic cardiomyopathy. He was recently noted to have an ejection fraction less than 35%. He has been on guideline directed medical therapy. He has not suffered a myocardial infarction in the past 40 days nor undergone revascularization in the last 90 days. He has an anticipated longevity greater than 1 year. Based on this information he was felt to be a good candidate for an ICD as primary prevention against sudden cardiac . Shared decision-making was employed in this process. He was also noted to have left bundle branch block morphology on his EKG he had [place] [employer] class III symptoms. He was therefore felt to be a good candidate for cardiac resynchronization therapy. Procedure in detail: The patient was informed of the risks benefits and alternatives to the intended procedure and she wished to proceed. He was taken to the electrophysiology suite in a fasting state. A preoperative antibiotic had been administered. The patient was monitored electrocardiographically throughout today's procedure and conscious sedation was administered per protocol. The left upper pectoral area was prepped and draped in usual sterile fashion. This area was anesthetized using subcutaneous administration of a xylocaine solution. An incision was made at this site and carried down to the prepectoralis fascia using sharp dissection. Electrocautery was also employed for dissection as well as for hemostasis. A device pocket was fashioned tissues above the pectoralis muscle. Subsequent to this maneuver the left axillary vein was accessed using modified Seldinger technique. Sheath was placed over guidewire and used to facilitate passage of ICD lead to the right ventricular apex under fluoroscopic guidance. Adequate sensing and threshold parameters were obtained prior to active-fixation of this lead to the endocardial surface. The proximal portion lead was then sutured to prepectoralis fat using nonabsorbable suture. A sheath was placed over a second guidewire [place] passage of a pacing lead to the right atrium under fluoroscopic guidance. Adequate sensing and threshold parameters were obtained prior to active fixation of this lead to the endocardial surface. The proximal portion lead was then sutured the prepectoralis fascia using nonabsorbable suture. A sheath was placed over the remaining guidewire and used to facilitate passage of a guiding catheter for engagement of the coronary sinus. Once engaged limited coronary sinus venography was performed in order to identify suitable target vessel. Once identified standard guidewire techniques were employed to deliver a pacing lead to the target vessel. Adequate sensing and threshold parameters as well as the absence of diaphragmatic stimulation and high output were confirmed prior to removal of the guiding catheter and sheath. The proximal portion lead was then sutured to the prepectoralis fascia using nonabsorbable suture. The device pocket was irrigated with antibiotic solution. The leads were then attached to the device. The device and leads were then placed in the pocket and pocket was closed in 3 layers of absorbable suture. Steri-Strips and sterile dressing were applied. The device was tested noninvasively prior to conclusion the procedure. The patient tolerated procedure well there no immediate complications. Equipment used: New pulse generator: Rn Procedures [employer]. Model number: [id number] serial number [id number] Right atrial lead: Rn Procedures Medtronic. Model number: [id number] serial number [id number] Right ventricular lead: Rn Procedures Medtronic. Model number: [id number] serial number [id number] Coronary sinus lead: Rn Procedures Medtronic. Model #4298 serial number [id number] Measured data: Right atrial lead: P waves measured 2.9 mV. Pacing threshold was 0.5 V at 0.4 ms with a pacing penis of 437 ohms Right ventricular lead: R waves measured 10.4 mV. Pacing threshold was 0.75 V at 0.4 ms with a pacing impedance of 418 ohms Impression: Successful implantation of biventricular ICD MNPG Electrophysiology codes Pacing Procedure 1: Pacin BiV electrode w/Pacer / ICD implant, add on code ICD Procedure 1: ICD: 91616 Insert single or dual ICD system PG Moderate Sedation Codes Moderate Sedation Codes Procedure 1: Sedation/Anesthesia: 94955 Mod Sedation by the same physician;Init15 Min Child Age 5 & Up Procedure 2: Sedation/Anesthesia: 48772 Mod Sedation by the same physician; Ea [id number] Minutes
--- NOTE | 2024-08-14 10:02 | Post Anesthesia Assessment ---
Date of Service August 14, 2024 Post Sedation Assessment Vital Signs Pulse Resp BP Pulse Ox O2 Del Method 08/14/24 07:27 57 L 16 125/75 99 Room Air Recovery Score Activity: Moves 4 extremities Respiration: Deep Breath/Cough Circulation: +/-20% PreAnes Value Consciousness: Arouseable (by name) Oxygen Saturation: O2 needed for >90% Discharge Sedation Level of Care: Fast Track Phase II Post Sedation Plan On clinical assessment, the patient appears to have tolerated the sedation without complications. Patient is recovering as anticipated. Patient will continue to be monitored by nursing and may be discharged when sedation discharge criteria are met per below protocol. Upon Completions of procedure up to 15 minutes continue every 5 minute vital signs and the P.A.R. score; then discharge to a Phase I or Fast Track to Phase II per the following guidelines: * Discharge Patient to appropriate Phase II area if PAR is 8 or greater or return to pre- procedure baseline. The post - procedure orders will be as directed. * If PAR score is less than 8 or not return to pre-procedure baseline then patient will follow Phase I monitoring till PAR is reached for Phase II. The Phase I may be done in procedure room or may call to secure a Phase I area. * If naloxone or flumazenil are used for reversal, hold in Phase I for continued monitoring from when last reversal dose was given for a minimum of 60 minutes or longer pending the nurse and/or physician discretion of patient condition before discharge to Phase II. Please call the Sedation Physician to re-evaluate and complete post-note for discharge to Phase II area. Do NOT discharge from procedure sedation or Phase 1 until post- sedation evaluation note is complete by procedure /sedation MD Sedation Discharge Instructions to be given to the patient at discharge to home.
[2024-08-14] MEDS: ACETAMINOPHEN 325 MG TAB PO PRN (13:12)
--- NOTE | 2024-08-14 15:32 | Electrocardiogram Report ---
Test Reason : Blood Pressure : */* mmHG Vent. Rate : 60 BPM Atrial Rate : 60 BPM P-R Int : 152 ms QRS Dur : 166 ms QT Int : 556 ms P-R-T Axes : * 150 101 degrees QTcB Int : 556 ms AV dual-paced rhythm Abnormal ECG When compared with ECG of 13-Jul-2024 12:05, Electronic ventricular pacemaker has replaced Sinus rhythm Confirmed by Kayden Narayanan ([id number]) on 08/14/2024 3:32:15 PM Referred By: Shailesh Best Confirmed By: Kayden Narayanan
[2024-08-14 17:12] LABS: INR 1.3 (0.9-1.1); Prothrombin Time 13.8 Seconds (9.0-12.0)
[2024-08-14] MEDS: ceFAZolin 1000MG 1,000 MG/7.5 ML SYR IV ONE (18:26)
[2024-08-14] MEDS: WARFARIN SOD 2.5 MG TAB PO SCH (18:27)
[2024-08-14] MEDS: METOPROLOL SUCC 25MG EXT REL TAB PO SCH (19:59)
[2024-08-14] MEDS: ATORVASTATIN 10 MG TAB PO SCH (19:59)
[2024-08-14] MEDS: VALSARTAN/SACUBITRIL 51/49 MG TAB PO SCH (20:00)
[2024-08-15 06:33] LABS: INR 1.3 (0.9-1.1); Prothrombin Time 13.4 Seconds (9.0-12.0)
[2024-08-15] MEDS: LEVOTHYROXINE SODIUM 50 MCG TABLET PO SCH (07:13)
--- NOTE | 2024-08-15 07:25 | XRay Report ---
EXAM: XR chest 2V PA/lateral CLINICAL HISTORY: EVAL LEAD PLACEMENT EVAL FOR PNEUMOTHORAX UNABLE TO MOVE LT ARM FOR LATERAL DUE TO IMPLANT JMF TECHNIQUE: X-ray images of the chest were obtained in 2 views: posteroanterior (PA) and lateral projections. COMPARISON: 07/18/2024 CR. FINDINGS: Pulmonary Parenchyma: Mild right pleural effusion noted. Right lower faint opacities could be infection with atelectatic changes, clinical correlation is needed. The rest of the lungs are clear bilaterally. No evidence of left pleural effusion. Heart and Mediastinum: Left-sided cardiac pacemaker, with its leads in place. Prominent calcific aortic arch. Mild cardiomegaly. Bony Thorax: Thoracic spine degenerative changes. Soft Tissues: Soft tissues overlying the chest wall are unremarkable. IMPRESSION: 1. Mild right pleural effusion noted. unchanged. 2. Right lower faint opacities could be infection with atelectatic changes, clinical correlation is needed. Unchanged. 3. Resolved the left pleural effusion. 4. Left-sided cardiac pacemaker, with its leads in place. New finding. 5. Prominent calcific aortic arch. Unchanged. 6. Mild cardiomegaly. Unchanged. Electronically signed by Andrei Page 08-15-2024 07:24 AM
[2024-08-15 07:34] VITALS: PULSE 64
[2024-08-15 08:10] VITALS: BP 122/77; RESP 18; TEMP 98.4; O2SAT 96
[2024-08-15] MEDS: FUROSEMIDE 40 MG TAB PO SCH (08:39)
[2024-08-15] MEDS: TAMSULOSIN HCL 0.4 MG CAP PO SCH (08:40)
[2024-08-15] MEDS: FINASTERIDE 5 MG TAB PO SCH (08:40)
--- NOTE | 2024-08-15 09:27 | Discharge Summary ---
Date of Service August 15, 2024 Admission HPI Per Admitting Provider Patient with a history of a nonischemic cardiomyopathy. Presents for implantation of biventricular ICD Principal Diagnosis Nonischemic cardiomyopathy, left bundle branch block Discharge Exam Patient ambulatory. Normal respiratory effort Evaluation of the device implant site revealed intact incision. No significant erythema. No hematoma. No drainage. Discharge Data Allergies Allergy/AdvReac Type Severity Reaction Status Date / Time No Known Allergies Allergy Verified 07/13/24 12:23 Procedures Performed Operation Date: 08/14/24 08:00 Actual Procedures p ICD Insertion Single or Dual - Shailesh Best MD s Venogram, Unilateral - Shailesh Best MD Ordered Studies 08/14/24 08:30 EP Lab Images for PACS ONCE Hospital Course (1) Nonischemic cardiomyopathy: Plan On the day of admission the patient underwent implantation of a Medtronic biventricular ICD. The procedure was uncomplicated. The following morning a chest x-ray demonstrated stable lead position. Device interrogation revealed normal function of the device. Wound was intact without evidence of complication. Total Time Total Time Spent Total Time Spent (In Minutes): 20 Discharge Plan Discharge Items Patient Disposition: Home - Self-Care Reason For Visit: ICD IMPLANT Discharge Diagnosis: Nonischemic cardiomyopathy Activity: Resume your previous activity Lifting: No more than 10 pounds Lifting Comment: No lifting left arm above shoulder behind neck for 6 weeks Bathing: Keep incision dry Bathing Comment: Keep wound dry and Steri-Strip intact until follow-up next week Exercise/Sports: Rest today Driving/Machine Use: No limitations Non-emergency contact: Veterinary X Ray Operator Call non-emergency contact if: you have a fever, your wound has increased redness, your wound has increased drainage and your wound pain has increased Follow-up/Referrals: Chapo Veloz PA-C [Physician Shook Machine Operator] - 09/24/24 Forrest Slater DO [Primary Care Provider] - 08/22/24 12:45 pm (Hospital follow up scheduled August 22 at 12:45) Diet: Heart Healthy Addtl Attending Provider Instructions: Patient to resume daily warfarin at 2 mg a day Pending Studies at Discharge: No Stand-Alone Forms: [employer], Smoking Cessation Medications and DC Order Prescriptions: Continued warfarin 2 mg tablet 2 mg PO DAILY Qty: 90 0RF Rx Instructions: 2 mg daily OR as directed by [facility] tamsulosin 0.4 mg capsule 0.4 mg PO DAILY Qty: 30 11RF finasteride 5 mg tablet 5 mg PO DAILY Qty: 90 3RF sacubitril-valsartan [Entresto] 49-51 mg Tablet 1 tab PO BID levothyroxine 50 mcg Tablet 50 mcg PO DAILY metoprolol succinate 25 mg Capsule,Sprinkle,Er 24hr 25 mg PO PM furosemide 40 mg tablet 40 mg PO DAILY Qty: 30 0RF atorvastatin 10 mg tablet 10 mg PO QPM Discharge Orders: Discharge Order (Routine); Ordered 08/15/24 Ordered By: Shailesh Bolden/Other Patient Handouts: Biventricular ICD, Living with a Pacemaker, Pacemaker Implant Dc Admission Data Admit Date/Time: 08/14/24 09:24 Attending Provider: Shailesh Best Admit Provider: Shailesh Best Primary Care Provider: Forrest Slater Other Interventions: Discharge Summary Assessment (RN) Last Done: 08/15/24 10:04 Coding Level of Care Code 44001 IN/OBS DISCH 30 MIN/LESS Diagnoses Nonischemic cardiomyopathy I42.8
--- NOTE | 2024-08-26 11:29 | Coding Query ---
DIAGNOSIS CLARIFICATION In the H&P "significantly reduced LV systolic function with an ejection fraction of less than 15%" and "has [place] Heart Association class III symptoms" are documented under the Assessment & Plan. Please provide any diagnoses related to this documentation below: DIAGNOSIS: I42.8 non-ischemic CM Thank you for your assistance, Meme Swann - Distillation Operator Helper SHEA
== END 2024-08-15 10:42 | disposition home or self-care (01) ==
LOC: 2S 06:56 → EP 06:56
PROC: EPB.ICD (2024-08-14 08:00)